=== PATIENT | male | born 1950 | race Caucasian/White ===

== ENCOUNTER 2016-03-30 20:03 | Inpatient (IN) | payer MEDICARE ==
[~2016-03-30] VITALS: Ht 175.3 cm; Wt 77.6 kg
[~2016-03-30 20:03] MED LIST: ASPI-110 PO; CARD300C5 PO; GLUC15009 PO; MULT1TAB84 PO; NEXI40CA PO; ONDA4TAB6 PO; OXYC1CAP8 PO; PROS5TAB PO; SUPECAP14 PO; VASO10TA8 PO; ZOCO40TA PO
[2016-03-30 20:16] VITALS: BP 91/53; PULSE 94; RESP 18; TEMP 99; O2SAT 98
--- NOTE | 2016-03-30 21:20 | PD ---
HPI Chief Complaint: Abnormal Results Time Seen by Provider: 20:49 Travel History International Travel<30 days: No Contact w/Intl Traveler<30days: No Traveled to known affect area: No History of Present Illness HPI 66-year-old male complains of poor appetite, increased sodium level, and bilateral ankle swelling. Patient has history of metastatic pancreatic cancer to the liver, on palliative chemotherapy. Patient has poor appetite recently. Patient denies any nausea vomiting diarrhea. Patient states that he has history of chronic abdominal pain from the cancer and is not new. Patient had blood tests done by Dr. Gonzalez, his oncologist 3 days ago . Patient was informed by Dr. Gonzalez today that his sodium is high and advised to go to ED for evaluation. Patient States that he noticed bilateral ankle swelling today. Patient denies any leg pain. Patient denies ankle and feet pain. Patient denies any history of DVT or PE. Patient also has history of hypertension, GERD , BPH, hyperlipidemia. PFSH Past Medical History Cancer: Yes (pancreatic/liver) Cardiovascular Problems: Yes (htn on meds) High Cholesterol: Yes Chemotherapy: Yes (this past wednesday) Diabetes: No Diminished Hearing: No Endocrine: No Gastrointestinal Disorders: Yes (GERD) Genitourinary: No Hepatitis: No Hiatal Hernia: No Hypertension: Yes Immune Disorder: No Musculoskeletal: No Neurologic: No Psychiatric: No Reproductive: No Respiratory: No Immunizations Current: Yes Thyroid Disease: No Past Surgical History Abdominal Surgery: Yes (APPENDECTOMY, INGUINAL HERNIA REPAIR) AICD: No Appendectomy: Yes Joint Replacement: No Pacemaker: No Thoracic Surgery: Yes (RIGHT LUNG TUMOR REMOVAL- OUTSIDE) Other Surgery: Yes (HERNIA) Social History Alcohol Use: No (quit 10+ years ago) Tobacco Use: No (quit 25+ years ago) Substance Use: No Allergies-Medications (Allergen,Severity, Reaction): Coded Allergies: Codeine (Verified Allergy, Severe, HEADACHE AND FLUSHNESS, 03/30/16) Reported Meds & Prescriptions Reported Meds & Active Scripts Active Reported Cardizem LA (Diltiazem ER 24 HR) 300 Mg Jose 300 Mg PO DAILY Vasotec (Enalapril Maleate) 10 Mg Tab 10-25 Mg PO BID Super B with C (B Complex W/ C) 1 Cap Cap 1 Cap PO DAILY Glucosamine 1,500 Mg Tab 1,500 Mg PO DAILY Multivitamin Adults (Multiple Vitamins W/ Minerals) 1 Tab 1 Tab PO DAILY Oxycodone Hydrochloride (Oxycodone HCl) 5 Mg Cap 5 Mg PO Q4HR PRN Ondansetron HCl 4 Mg Tab 8 Mg PO TID Aspirin 81 (Aspirin) 81 Mg Tabdr 81 Mg PO DAILY Nexium (Esomeprazole DR) 40 Mg Capdr 40 Mg PO DAILY Proscar (Finasteride) 5 Mg Tab 5 Mg PO DAILY Do not crush. Zocor (Simvastatin) 40 Mg Tab 40 Mg PO DAILY Review of Systems General / Constitutional: No: Fever Eyes: No: Visual changes HENT: No: Headaches Cardiovascular: No: Chest Pain or Discomfort Respiratory: No: Shortness of Breath Gastrointestinal: No: Abdominal Pain Genitourinary: No: Dysuria Musculoskeletal: No: Pain Skin: No Rash Neurologic: No: Weakness Psychiatric: No: Depression Endocrine: No: Polydipsia Hematologic/Lymphatic: No: Easy Bruising Physical Exam Narrative GENERAL: Well-nourished, well-developed patient. SKIN: Warm and dry. Patient is jaundiced HEAD: Normocephalic. EYES: No scleral icterus. No injection or drainage. NECK: Supple, trachea midline. No JVD or lymphadenopathy. CARDIOVASCULAR: Regular rate and rhythm without murmurs, gallops, or rubs. RESPIRATORY: Breath sounds equal bilaterally. No accessory muscle use. GASTROINTESTINAL: Abdomen soft, non-tender, nondistended. MUSCULOSKELETAL: No cyanosis, or edema. BACK: Nontender without obvious deformity. No CVA tenderness. Neurologic exam normal. Data Data Last Documented VS Vital Signs Date Time Temp Pulse Resp B/P Pulse Ox O2 Delivery O2 Flow Rate FiO2 03/30/16 20:50 Room Air 03/30/16 20:16 99.0 94 18 91/53 98 Orders Complete Blood Count With Diff (03/30/16 21:08) Comprehensive Metabolic Panel (03/30/16 21:08) Prothrombin Time / Inr (Pt) (03/30/16 21:08) Act Partial Throm Time (Ptt) (03/30/16 21:08) Magnesium (Mg) (03/30/16 21:08) Ammonia (03/30/16 21:08) Phosphorus (Po4) (03/30/16 21:08) Iv Access Insert/Monitor (03/30/16 21:08) Ecg Monitoring (03/30/16 21:08) Oximetry (03/30/16 21:08) Us Leg Venous Doppler Bilat (03/30/16 21:08) Sodium Chlor 0.9% 1000 Ml Inj (Ns 1000 M (03/30/16 23:15) Sodium Chlor 0.9% 1000 Ml Inj (Ns 1000 M (03/30/16 23:15) Admit To Inpatient (03/31/16 ) Vital Signs (Adult) Q4H (03/31/16 00:21) Activity Oob With Assistance (03/31/16 00:21) ^ Radiology Practitioner Assistant / Telemetry .CONTINUOUS (03/31/16 00:21) Diet Heart Healthy (03/31/16 Breakfast) Sodium Chlor 0.9% 1000 Ml Inj (Ns 1000 M (03/31/16 00:21) Sodium Chloride 0.9% Flush (Ns Flush) (03/31/16 00:30) Sodium Chloride 0.9% Flush (Ns Flush) (03/31/16 09:00) Ondansetron Inj (Zofran Inj) (03/31/16 00:30) Basic Metabolic Panel (Bmp) (04/01/16 06:00) Complete Blood Count With Diff (04/01/16 06:00) Enoxaparin Inj (Lovenox Inj) (03/31/16 09:00) Naloxone Inj (Narcan Inj) (03/31/16 00:30) Inpatient Certification (03/31/16 ) Cefepime Inj (Maxipime Inj) (03/31/16 00:30) Chest, Single Ap (03/31/16 00:23) Admit Order (Ed Use Only) (03/31/16 00:23) Labs Laboratory Tests Test 03/30/16 21:30 White Blood Count 24.3 TH/MM3 Red Blood Count 3.30 MIL/MM3 Hemoglobin 9.8 GM/DL Hematocrit 28.4 % Mean Corpuscular Volume 86.2 FL Mean Corpuscular Hemoglobin 29.6 PG Mean Corpuscular Hemoglobin 34.4 % Concent Red Cell Distribution Width 19.8 % Platelet Count 152 TH/MM3 Mean Platelet Volume 8.9 FL Neutrophils (%) (Auto) 86.2 % Lymphocytes (%) (Auto) 6.5 % Monocytes (%) (Auto) 6.8 % Eosinophils (%) (Auto) 0.1 % Basophils (%) (Auto) 0.4 % Neutrophils # (Auto) 20.9 TH/MM3 Lymphocytes # (Auto) 1.6 TH/MM3 Monocytes # (Auto) 1.7 TH/MM3 Eosinophils # (Auto) 0.0 TH/MM3 Basophils # (Auto) 0.1 TH/MM3 CBC Comment AUTO DIFF Differential Comment AUTO DIFF CONFIRMED Platelet Estimate NORMAL Platelet Morphology Comment CLUMPED Prothrombin Time 13.6 SEC Prothromb Time International 1.2 RATIO Ratio Activated Partial 34.6 SEC Thromboplast Time Sodium Level 123 MEQ/L Potassium Level 3.5 MEQ/L Chloride Level 83 MEQ/L Carbon Dioxide Level 32.8 MEQ/L Anion Gap 7 MEQ/L Blood Urea Nitrogen 36 MG/DL Creatinine 1.40 MG/DL Estimat Glomerular Filtration 50 ML/MIN Rate Random Glucose 118 MG/DL Calcium Level 8.1 MG/DL Phosphorus Level 2.9 MG/DL Magnesium Level 1.8 MG/DL Total Bilirubin 6.4 MG/DL Aspartate Amino Transf 228 U/L (AST/SGOT) Alanine Aminotransferase 309 U/L (ALT/SGPT) Alkaline Phosphatase 1325 U/L Ammonia LESS THAN 10 MCMOL/L Total Protein 5.6 GM/DL Albumin 1.7 GM/DL MDM Medical Decision Making Medical Screen Exam Complete: Yes Emergency Medical Condition: Yes Interpretation(s) 22 45 PM. Doppler study low extremity negative for DVT. CBC WBC 24.3. Hemoglobin 9.8 hematocrit 20.4. 86 neutrophil. INR 1.2. 23:11 PM. Sodium 123. Chloride 83. BUN 30. Creatinine 1.40. GFR 50. Total bili 6.4. AST 228. ALT 309. Alkaline phosphatase 13-5. Ammonia less than 10. Differential Diagnosis Differential diagnosis including hyponatremia, dehydration, dependent edema, DVT Narrative Course 66-year-old male with history of metastatic pancreatic cancer to the liver was sent to the ED for evaluation of hypernatremia. Patient also has bilateral ankle swelling today. Normal saline solution 1 L IV bolus. Normal saline solution 1 25 cc an hour. Diagnosis Primary Impression: Dehydration with hyponatremia Additional Impressions: Acute kidney injury Leukocytosis Qualified Code: D72.829 - Leukocytosis, unspecified type Admitting Information Admitting Physician Requests: Admit Kimo Pham MD Mar 30, 2016 21:20
[2016-03-30 21:45] VITALS: BP 118/62; PULSE 80; RESP 18; O2SAT 99
[2016-03-30 21:47] LABS: AUTOMATED NEUTROPHIL # 20.9 TH/MM3 (1.8-7.7); BASOPHIL # 0.1 TH/MM3 (0-0.2); BASOPHIL % 0.4 % (0.0-2.0); EOSINOPHIL % 0.1 % (0.0-4.0); HEMATOCRIT 28.4 % (39.0-51.0); LYMPH % 6.5 % (9.0-44.0); LYMPHOCYTE # 1.6 TH/MM3 (1.0-4.8); MEAN CELL VOLUME 86.2 FL (80.0-100.0); MEAN CORPUSCULAR HEMOGLOBIN 29.6 PG (27.0-34.0); MEAN CORPUSCULAR HGB CONC 34.4 % (32.0-36.0); MONO % 6.8 % (0.0-8.0); NEUT % 86.2 % (16.0-70.0); PLATELET COUNT 152 TH/MM3 (150-450); RED CELL DISTRIBUTION WIDTH 19.8 % (11.6-17.2); WHITE BLOOD COUNT 24.3 TH/MM3 (4.0-11.0)
[2016-03-30 21:50] LABS: HEMO FLAGS AUTO DIFF
[2016-03-30 21:55] LABS: APTT (PATIENT) 34.6 SEC (24.3-30.1); INTERNATIONAL NORMALIZED RATIO 1.2 RATIO; PROTHROMBIN TIME - PATIENT 13.6 SEC (9.8-11.6)
--- NOTE | 2016-03-30 22:27 | RADHPO ---
EXAM DATE/TIME: 03/30/2016 21:38 [facility] COMPARISON: No previous studies available for comparison. INDICATIONS : Bilateral leg swelling. MEDICAL HISTORY : Hypercholesterolemia. Hypertension. Gastroesophageal reflux disease. Pancreatic cancer. SURGICAL HISTORY : Appendectomy.Inguinal hernia repair. Rotator cuff, left.Rotator cuff, right. Chemotherapy. ENCOUNTER: Initial ACUITY: 1 day PAIN SCORE: 1/10 LOCATION: Bilateral legs. TECHNIQUE: Venous ultrasound of the left and right leg was performed from the inguinal ligament to the proximal calf. Real-time, color Doppler and spectral tracing, compression and augmentation techniques were us ed. FINDINGS: RIGHT LEG: There is normal compressibility of the deep venous system from the inguinal region to the proximal ca lf. No echogenic clot is seen in the lumen of the common femoral, femoral, popliteal, and posterior tibial veins. There is a normal response of the venous system to proximal and distal augmentation an d respiration. LEFT LEG: There is normal compressibility of the deep venous system from the inguinal region to the proximal ca lf. No echogenic clot is seen in the lumen of the common femoral, femoral, popliteal, and posterior tibial veins. There is a normal response of the venous system to proximal and distal augmentation an d respiration. CONCLUSION: No DVT of either lower extremity. Dusty Stuart MD on March 30, 2016 at 22:25 Board Certified Radiologist. This report was verified electronically.
[2016-03-30] MEDS ORDERED: DILT1TAB22 PO (22:38)
[2016-03-30 22:40] VITALS: BP 131/60; PULSE 72; RESP 16; O2SAT 96
[2016-03-30 22:41] LABS: ALKALINE PHOSPHATASE 1325 U/L (45-117); ALT (GPT) 309 U/L (12-78); ANION GAP 7 MEQ/L (5-15); AST (GOT) 228 U/L (15-37); BICARBONATE 32.8 MEQ/L (21.0-32.0); BLOOD UREA NITROGEN 36 MG/DL (7-18); CHLORIDE 83 MEQ/L (98-107); GLOMERULAR FILTRATION RATE 50 ML/MIN (>89); MAGNESIUM 1.8 MG/DL (1.5-2.5); POTASSIUM 3.5 MEQ/L (3.5-5.1); TOTAL BILIRUBIN ADULT 6.4 MG/DL (0.2-1.0)
[2016-03-30 22:46] LABS: PLATELET ESTIMATE SMEAR NORMAL (NORMAL); PLATELET MORPHOLOGY CLUMPED (NORMAL); SCAN/DIFF AUTO DIFF CONFIRMED
[2016-03-30 22:54] LABS: SODIUM (NA) 123 MEQ/L (136-145)
[2016-03-30] MEDS ORDERED: SODIUM CHLOR 0.9% 1000 ML INJ 1,000 ML IV ONE (23:15)
[2016-03-30] MEDS: SODIUM CHLOR 0.9% 1000 ML INJ 1,000 ML IV SCH (23:26)
[2016-03-30 23:50] VITALS: BP 134/58; PULSE 70; RESP 17; O2SAT 97
[2016-03-31] VITALS (9 sets, daily range): BP systolic 118–143; BP diastolic 60–75; PULSE 66–89; RESP 16–18; TEMP 97.4–98.9; O2SAT 96–99
[2016-03-31] MEDS ORDERED: SODIUM CHLOR 0.9% 1000 ML INJ 1,000 ML IV SCH (00:21)
[2016-03-31] MEDS ORDERED: NALOXONE HCL 0.4 MG/ML AMP IV PRN (00:30)
[2016-03-31] MEDS ORDERED: CEFEPIME INJ 1,000 MG in SODIUM CHLORIDE 0.9% INJ 100 ML IV ONE (00:30)
[2016-03-31] MEDS ORDERED: ONDANSETRON HCL 4 MG/2 ML VIAL IVP PRN (00:30)
[2016-03-31] MEDS ORDERED: SODIUM CHLORIDE 0.9% FLUSH 5 ML FLUSH FLUSH PRN (00:30)
--- NOTE | 2016-03-31 01:20 | RADHPO ---
EXAM DATE/TIME: 03/31/2016 00:55 [facility] COMPARISON: [id number] PLCMT, POWERPORT, W US, RIGHT, January 29, 2016, 9:43. INDICATIONS : Short of breath MEDICAL HISTORY : Carcinoma, pancreas. SURGICAL HISTORY : Infus a port ENCOUNTER: Initial ACUITY: 1 day PAIN SCORE: 2/10 LOCATION: Bilateral chest FINDINGS: Right chest port is present in good position. The there is slight asymmetric elevation the right diap hragm and minimal parenchymal opacity right lung base. No significant effusion. Cardiomediastinal con tours are satisfactory. CONCLUSION: Mild diaphragmatic asymmetry of undetermined chronicity. Dusty Vanessa MD on March 31, 2016 at 1:17 Board Certified Radiologist. This report was verified electronically.
[2016-03-31] MEDS: ENOXAPARIN SODIUM 40 MG/0.4 ML SYRINGE SQ SCH (09:50)
[2016-03-31] MEDS: SODIUM CHLOR 0.9% 1000 ML INJ 1,000 ML IV SCH ×3 (09:52→23:15)
[2016-03-31] MEDS: SODIUM CHLORIDE 0.9% FLUSH 5 ML FLUSH FLUSH SCH ×2 (09:53→19:36)
[2016-03-31] MEDS ORDERED: CEFEPIME INJ 1,000 MG in SODIUM CHLORIDE 0.9% INJ 100 ML IV SCH (12:00)
[2016-03-31 13:10] LABS: BICARBONATE 29.3 MEQ/L (21.0-32.0)
[2016-03-31 13:11] LABS: POTASSIUM 2.9 MEQ/L (3.5-5.1)
[2016-03-31] MEDS ORDERED: POTASSIUM CHLORIDE 10 MEQ CONTROLLED RELEASE TAB PO ONE (13:30)
--- NOTE | 2016-03-31 13:32 | HHI.HP ---
[facility] Shubham Ruiz Admission Diagnosis severe hyponatremia. Leukocytosis. Diagnoses: Chief Complaint: Abnormal labs Travel History International Travel<30 Days: No Contact w/Intl Traveler <30 Da: No Traveled to Known Affected Are: No History of Present Illness Patient is a 66-year-old gentleman with a history of pancreatic cancer in follow -up with Dr. Gonzalez who did come to the emergency room after his oncologist office called him with abnormal labs. He did arrive and had a BMP which showed some hyponatremia, acute kidney injury and leukocytosis. Patient says he has not been ill, no fevers or chills. He does take palliative chemotherapy for 3 weeks and is off a week. Last treatment was last Wednesday and labs were obtained at that time. Patient did have a sodium of 123 and after so normal saline and sodium is now 126. His acute kidney injury appears to be resolved also. Patient does have persistent leukocytosis. He denies any seizures or headache or shortness of breath. These reasons the patient was admitted to the hospital for further treatment of dehydration with hyponatremia Review of Systems Constitutional: DENIES: Diaphoretic episodes, Fatigue, Fever, Weight gain, Weight loss, Chills, Dizziness, Change in appetite, Night Sweats Endocrine: DENIES: Heat/cold intolerance, Polydipsia, Polyuria, Polyphagia Eyes: DENIES: Blurred vision, Diplopia, Eye inflammation, Eye pain, Vision loss , Photosensitivity, Double Vision Ears, nose, mouth, throat: DENIES: Tinnitus, Hearing loss, Vertigo, Nasal discharge, Oral lesions, Throat pain, Hoarseness, Ear Pain, Running Nose, Epistaxis, Sinus Pain, Toothache, Odynophagia Respiratory: DENIES: Apneas, Cough, Snoring, Wheezing, Hemoptysis, Sputum production, Shortness of breath Cardiovascular: DENIES: Chest pain, Palpitations, Syncope, Dyspnea on Exertion , PND, Lower Extremity Edema, Orthopnea, Claudication Gastrointestinal: DENIES: Abdominal pain, Black stools, Bloody stools, Constipation, Diarrhea, Nausea, Vomiting, Difficulty Swallowing, Anorexia Genitourinary: DENIES: Sexual dysfunction, Urinary frequency, Urinary incontinence, Urgency, Hematuria, Dysuria, Nocturia, Penile Discharge, Testicular Pain, Testicular Swelling Musculoskeletal: DENIES: Joint pain, Muscle aches, Stiffness, Joint Swelling, Back pain, Neck pain Integumentary: DENIES: Abnormal pigmentation, Nail changes, Pruritus, Rash Hematologic/lymphatic: DENIES: Bruising, Lymphadenopathy Immunologic/allergic: DENIES: Eczema, Urticaria Neurologic: DENIES: Abnormal gait, Headache, Localized weakness, Paresthesias, Seizures, Speech Problems, Tremor, Poor Balance Psychiatric: DENIES: Anxiety, Confusion, Mood changes, Depression, Hallucinations, Agitation, Suicidal Ideation, Homicidal Ideation, Delusions Past Family Social History Past Medical History Pancreatic cancer with metastases to the liver and currently on palliative chemotherapy Hypertension Past Surgical History Appendectomy Right lung resection Plan of hernia repair Reported Medications Reviewed in the medical record Allergies: Coded Allergies: Codeine (Verified Allergy, Severe, HEADACHE AND FLUSHNESS, 03/30/16) Active Ordered Medications Reviewed in the medical record Family History Son has melanoma Social History No current tobacco or alcohol dependency, retired [employer], lives with his Physical Exam Vital Signs Vital Signs Date Time Temp Pulse Resp B/P Pulse Ox O2 Delivery O2 Flow Rate FiO2 03/31/16 08:07 97.4 66 18 118/75 98 03/31/16 07:20 98.4 77 16 124/62 98 Room Air 03/31/16 07:20 77 16 98 Room Air 03/31/16 07:20 16 98 Room Air 03/31/16 06:30 79 18 134/67 98 Room Air 03/31/16 05:00 72 18 134/62 96 Room Air 03/31/16 03:00 Room Air 03/31/16 03:00 73 16 143/65 96 Room Air 03/31/16 01:26 98.6 72 17 136/60 97 Room Air 03/30/16 23:50 70 17 134/58 97 Room Air 03/30/16 22:40 Room Air 03/30/16 22:40 72 16 131/60 96 Room Air 03/30/16 21:45 80 18 118/62 99 Room Air 03/30/16 20:50 Room Air 03/30/16 20:50 Room Air 03/30/16 20:16 99.0 94 18 91/53 98 Room Air Physical Exam GENERAL: This is a well-nourished, well-developed patient, in no apparent distress. SKIN: No rashes, ecchymoses or lesions. Cool and dry. HEAD: Atraumatic. Normocephalic. No temporal or scalp tenderness. EYES: Pupils equal round and reactive. Extraocular motions intact. No scleral icterus. No injection or drainage. ENT: Nose without bleeding, purulent drainage or septal hematoma. Throat without erythema, tonsillar hypertrophy or exudate. Uvula midline. Airway patent. NECK: Trachea midline. No JVD or lymphadenopathy. Supple, nontender, no meningeal signs. CARDIOVASCULAR: left port, Regular rate and rhythm without murmurs, gallops, or rubs. RESPIRATORY: Clear to auscultation. Breath sounds equal bilaterally. No wheezes , rales, or rhonchi. GASTROINTESTINAL: Abdomen soft, non-tender, nondistended. No hepato-splenomegaly , or palpable masses. No guarding. MUSCULOSKELETAL: Extremities without clubbing, cyanosis, or edema. No joint tenderness, effusion, or edema noted. No calf tenderness. Negative Homans sign bilaterally. NEUROLOGICAL: Awake and alert. Cranial nerves II through XII intact. Motor and sensory grossly within normal limits. Five out of 5 muscle strength in all muscle groups. Normal speech. Laboratory Laboratory Tests Test 03/30/16 03/31/16 21:30 12:20 White Blood Count 24.3 Red Blood Count 3.30 Hemoglobin 9.8 Hematocrit 28.4 Mean Corpuscular Volume 86.2 Mean Corpuscular Hemoglobin 29.6 Mean Corpuscular Hemoglobin 34.4 Concent Red Cell Distribution Width 19.8 Platelet Count 152 Mean Platelet Volume 8.9 Neutrophils (%) (Auto) 86.2 Lymphocytes (%) (Auto) 6.5 Monocytes (%) (Auto) 6.8 Eosinophils (%) (Auto) 0.1 Basophils (%) (Auto) 0.4 Neutrophils # (Auto) 20.9 Lymphocytes # (Auto) 1.6 Monocytes # (Auto) 1.7 Eosinophils # (Auto) 0.0 Basophils # (Auto) 0.1 CBC Comment AUTO DIFF Differential Comment AUTO DIFF CONFIRMED Platelet Estimate NORMAL Platelet Morphology Comment CLUMPED Prothrombin Time 13.6 Prothromb Time International 1.2 Ratio Activated Partial 34.6 Thromboplast Time Sodium Level 123 127 Potassium Level 3.5 2.9 Chloride Level 83 88 Carbon Dioxide Level 32.8 29.3 Anion Gap 7 10 Blood Urea Nitrogen 36 26 Creatinine 1.40 0.85 Estimat Glomerular Filtration 50 90 Rate Random Glucose 118 126 Calcium Level 8.1 7.7 Phosphorus Level 2.9 Magnesium Level 1.8 Total Bilirubin 6.4 Aspartate Amino Transf 228 (AST/SGOT) Alanine Aminotransferase 309 (ALT/SGPT) Alkaline Phosphatase 1325 Ammonia LESS THAN 10 Total Protein 5.6 Albumin 1.7 Result Diagram: 03/30/16212903/31/16 1220 Imaging Last Impressions Chest X-Ray 03/31/16 0023 Signed Impressions: Service Date/Time: Thursday, March 31, 2016 00:55 - CONCLUSION: Mild diaphragmatic asymmetry of undetermined chronicity. Dusty Vanessa MD Lower Extremity Ultrasound 03/30/162107 Signed Impressions: Service Date/Time: Wednesday, March 30, 2016 21:38 - CONCLUSION: No DVT of either lower extremity. Dusty Staurt MD Assessment and Plan Problem List: (1) Hypotension ICD Code: I95.9 Status: Acute Plan: Improved with IV hydration, continue to monitor patient (2) Acute kidney injury ICD Code: N17.9 Status: Acute Plan: Improved with IV hydration, avoid further nephrotoxic injury (3) Dehydration with hyponatremia ICD Code: E87.1 Status: Acute Plan: Sodium has gone from 123-127, will continue with slow normal saline and follow electrolytes Replace hypokalemia (4) Leukocytosis ICD Code: D72.829 Status: Acute Plan: Etiology unclear, UA and blood cultures pending May be acute phase reaction after chemotherapy Previous leukocytes have been normal Empiric cefepime Patient denies any fever, chills, SOB, Dysuria and is not on neupogen (5) LFT elevation ICD Code: R94.5 Status: Acute Plan: Patient with chronically elevated LFTs secondary to metastatic pancreatic cancer (metastases to the liver and currently on palliative chemotherapy with Dr. Gonzalez) continue surveillance noemi gupta Physician Certification 2 Midnight Certification Type: Admission for Inpatient Services Order for Inpatient Services The services are ordered in accordance with Medicare regulations or non- Medicare payer requirements, as applicable. In the case of services not specified as inpatient-only, they are appropriately provided as inpatient services in accordance with the 2-midnight benchmark. Estimated LOS (days): 3 3 days is the estimated time the patient will need to remain in the hospital, assuming treatment plan goals are met and no additional complications. Post-Hospital Plan: Home Problem Qualifiers (1) Leukocytosis: Qualified Code: D72.829 - Leukocytosis, unspecified type Jeanne Keller MD Mar 31, 2016 13:32
[2016-03-31] MEDS: FINASTERIDE 5 MG TAB PO SCH (14:34)
[2016-03-31] MEDS: DILTIAZEM-CD 300 MG CAP ER PO SCH (17:35)
[2016-03-31] MEDS: ONDANSETRON ODT 4 MG TAB PO SCH (17:35)
[2016-03-31 19:37] LABS: INDIRECT BILIRUBIN 1.8 MG/DL (0.0-0.8); TOTAL BILIRUBIN ADULT 8.7 MG/DL (0.2-1.0)
[2016-03-31 19:37] LABS: BLOOD, URINE NEG (NEG); GLUCOSE,URINE 100 mg/dL (NEG); KETONE, URINE NEG (NEG); NITRITE,URINE NEG (NEG)
[2016-03-31 20:10] LABS: METHOD OF COLLECTION CLEAN CATCH; URINE COLOR AMBER (YELLW/STRAW)
--- NOTE | 2016-03-31 20:11 | MB ---
cc: JULIUS KELLER MD,MAXIMO GONZALEZ,AYLA Ferrer M.D. DATE OF CONSULTATION: 03/31/2016 DATE OF : [address] Julius Keller CHIEF COMPLAINT Chemo related toxicity. HISTORY OF PRESENT ILLNESS Mr. Tineo is a 66-year-old man with a history of upper abdominal pain and was found to have a pancreatic head mass and metastatic lesion to the right lobe of the liver. He was started on palliative chemotherapy with Abraxane and gemcitabine. He is well-known for an admission back in December 2015 for nausea, vomiting, diarrhea associated with his chemotherapy regimen. He has been tolerating his gemcitabine and Abraxane well. He describes having ankle swelling, problems with his sodium and thus was sent to the hospital by Dr. Gonzalez. During his evaluation he was found to have a white blood cell count of 24,000, hemoglobin 9.7, platelet count 152,000. Sodium was 123. It improved to 127 at the time of the consultation. His BUN was 36, creatinine 1.4. His BUN and creatinine improved. At the time of consultation liver function are all elevated. Mr. Tineo describes that he was trying to drink water as advised. He had some leg swelling. He has poor appetite and tries to eat. Denies any difficulty swallowing. No headaches, no vision changes. He has chronic abdominal pain in the upper abdomen related to his pancreas cancer. He has never been seen by pain management. He takes p.r.n. pain medication. He denies any constipation. Denies any peripheral neuropathy. He complained of leg swelling prior to coming into the hospital. Denies any fevers, chills, night sweats. The rest of his review of systems is negative. PAST MEDICAL HISTORY: 1. Metastatic pancreatic cancer. 2. Chemotherapy induced anemia. 3. Hypertension. 4. Hyponatremia. 5. Liver function elevation. PAST SURGICAL HISTORY: 1. Right inguinal hernia repair. 2. Appendectomy. 3. Removal of tumor in the right lung. 4. Hammertoe surgery. FAMILY HISTORY: Father age 38 of cerebral aneurysm. Mother age 87 with no cancer. ALLERGIES CODEINE. CURRENT MEDICATIONS: 1. Aspirin. 2. Protonix. 3. Cefepime. 4. Ondansetron. 5. Diltiazem. 6. Oxycodone 7. Proscar. 8. Enoxaparin. PHYSICAL EXAMINATION: VITAL SIGNS: Temperature 97.8, heart rate 84, respiratory rate 18, blood pressure 142/69, saturation 99%. GENERAL: Ms. Tineo is a well-developed, well-nourished man who looks his stated age. He has alopecia. He is in good spirits with his family at bedside. HEENT: Pupils equal, round, reactive to light and accommodation. Sclera mildly icteric. Oropharynx is clear. Neck is supple. Lungs cuenca clear to auscultation. Cardiovascular: Exam reveals normal rate, rhythm. Abdomen is mildly distended. There is tenderness in the upper abdomen, otherwise bowel sounds are good and benign. Extremities: Lower extremities with trace ankle edema. LABORATORY DATA Significant for hyponatremia on admission, BUN of 36, creatinine 1.4, white blood cell count is elevated. ASSESSMENT/PLAN Mr. Tineo is a 66-year-old man with multiple medical problems described above. He is diagnosed with metastatic unresectable pancreatic cancer receiving first-line chemotherapy with Abraxane and gemcitabine. His course was complicated by hyponatremia, renal insufficiency. I suspect renal insufficiency is related to prerenal azotemia. It improved with hydration and support. There is concern for progression of disease. The patient talks of change in chemo regimen that was scheduled for tomorrow. He describes Folfirinox. He has new bilirubin elevation. He is mildly icteric. Will check bilirubin again and consult gastroenterology if it looks like it is primarily an obstructive picture. His liver functions are elevated. His labs from January shows a normal bilirubin. The goal will be to determine if he has obstruction causing the increase in bilirubin. LDH will be checked. His potassium is being replaced by his primary team. He is trying to eat. His questions were answered to his satisfaction. MD RACIEL Barrientos/EDILSON /6:30 PM /7:33 PM JENELLE
[2016-03-31 20:12] LABS: SQUAMOUS EPITHELIAL CELL URINE 0-2 /hpf (0-5); WHITE BLOOD CELL CAST, URINE 0-2 /lpf
[2016-03-31 20:13] LABS: BACTERIA, URINE RARE /hpf; COMMENT (UR) CULT NOT INDICATED; CULTURE IF INDICATED CULT NOT INDICATED
[2016-04-01] VITALS: BP 124/74; PULSE 83; RESP 18; TEMP 98.6; O2SAT 98
[2016-04-01] MEDS: CEFEPIME INJ 1,000 MG in SODIUM CHLORIDE 0.9% INJ 100 ML IV SCH ×2 (00:14→23:55)
[2016-04-01] MEDS: SODIUM CHLOR 0.9% 1000 ML INJ 1,000 ML IV SCH ×3 (05:33→22:37)
[2016-04-01 06:59] LABS: CHLORIDE 91 MEQ/L (98-107); POTASSIUM 3.2 MEQ/L (3.5-5.1); SODIUM (NA) 129 MEQ/L (136-145)
[2016-04-01 07:06] LABS: ANION GAP 9 MEQ/L (5-15); BICARBONATE 29.3 MEQ/L (21.0-32.0); BLOOD UREA NITROGEN 18 MG/DL (7-18)
[2016-04-01 07:08] LABS: ALT (GPT) 328 U/L (12-78); AST (GOT) 332 U/L (15-37)
[2016-04-01 07:09] LABS: GLOMERULAR FILTRATION RATE 112 ML/MIN (>89)
[2016-04-01 07:10] LABS: TOTAL BILIRUBIN ADULT 10.1 MG/DL (0.2-1.0)
[2016-04-01 07:23] LABS: ALKALINE PHOSPHATASE 1483 U/L (45-117)
[2016-04-01 08:00] VITALS: BP 141/71; PULSE 78; RESP 18; TEMP 98.1; O2SAT 96
[2016-04-01 10:00] LABS: HEMATOCRIT 26.2 % (39.0-51.0); MEAN CELL VOLUME 87.6 FL (80.0-100.0); MEAN CORPUSCULAR HGB CONC 34.2 % (32.0-36.0); PLATELET COUNT 134 TH/MM3 (150-450); RED BLOOD COUNT 2.99 MIL/MM3 (4.50-5.90); RED CELL DISTRIBUTION WIDTH 20.8 % (11.6-17.2); WHITE BLOOD COUNT 24.2 TH/MM3 (4.0-11.0)
[2016-04-01 10:07] LABS: HEMO FLAGS AUTO DIFF
[2016-04-01] MEDS: DILTIAZEM-CD 300 MG CAP ER PO SCH (10:11)
[2016-04-01] MEDS: ENOXAPARIN SODIUM 40 MG/0.4 ML SYRINGE SQ SCH (10:11)
[2016-04-01] MEDS: PANTOPRAZOLE SOD 40 MG DELAYED RELEASE TAB PO SCH (10:11)
[2016-04-01] MEDS: SODIUM CHLORIDE 0.9% FLUSH 5 ML FLUSH FLUSH SCH ×2 (10:11→21:00)
[2016-04-01] MEDS: FINASTERIDE 5 MG TAB PO SCH (10:12)
[2016-04-01] MEDS: ONDANSETRON ODT 4 MG TAB PO SCH ×3 (10:12→17:56)
[2016-04-01] MEDS: ASPIRIN EC 81 MG TABEC PO SCH (10:12)
[2016-04-01 10:26] LABS: BANDS 1 % (0-6); NEUTROPHIL # MANUAL DIFF 21.3 TH/MM3 (1.8-7.7); PLATELET ESTIMATE SMEAR LOW (NORMAL); PLATELET MORPHOLOGY NORMAL (NORMAL); POLYS (SEG NEUTROPHILS) 87 % (16-70); SCAN/DIFF FINAL DIFF MANUAL; TARGET CELLS 1+ (NORMAL); WBC DIFF SAMPLE 100
[2016-04-01 12:00] VITALS: BP 124/62; PULSE 71; RESP 18; TEMP 98.7; O2SAT 97
--- NOTE | 2016-04-01 14:27 | MB ---
cc: PADMINI HELTON DATE OF CONSULTATION: 04/01/2016 DATE OF : 1950 REASON FOR CONSULTATION Jaundice and elevated liver enzymes. BRIEF MEDICAL HISTORY Mr. Tineo is a very pleasant 66-year-old gentleman with past medical history significant for metastatic pancreatic cancer and hypertension who is currently undergoing chemotherapy and being followed by Dr. Gonzalez. The patient was advised to present to the hospital due to abnormal lab work showing significant electrolyte abnormalities that required medical attention. Overall he was doing well. He reports having some mild abdominal discomfort usually in the lower abdomen. He denies any significant nausea or vomiting, no diarrhea or constipation. He did have a low sodium of 123 as well as acute kidney injury and leukocytosis. Also on initial evaluation he was noted to have elevation of liver enzymes with a bilirubin of 6.4, AST 228, ALT 309, and alkaline phosphatase of 1325. The patient does report some mild jaundice in the last few weeks. Denies any itching. He endorses some choluria and acholuria. GI has been consulted for abnormal liver enzymes. PAST MEDICAL HISTORY 1. Pancreatic cancer with metastasis to the liver. 2. Hypertension. PAST SURGICAL HISTORY 1. Appendectomy. 2. Right lung resection. 3. Hernia repair. ALLERGIES He is allergic to CODEINE. FAMILY HISTORY Has a son with melanoma. SOCIAL HISTORY Denies any tobacco, alcohol or drug use. MEDICATIONS Active medications: 1. Aspirin 81 mg p.o. daily. 2. Pantoprazole 40 mg p.o. daily. 3. Cefepime. 4. Diltiazem 300 mg p.o. daily. 5. Oxycodone 5 mg q.4h. p.r.n. 6. Proscar 5 mg p.o. daily. 7. Lovenox 40 mg q.24h. subcu. REVIEW OF SYSTEMS Positive for abdominal pain, jaundice, acholuria and chloruria. Otherwise a 14-point review of systems is negative. PHYSICAL EXAMINATION VITAL SIGNS: Temperature 98.7, heart rate 71, respiratory rate 14, blood pressure 124/62. GENERAL: He is in no acute distress lying in bed comfortably. HEENT: Normocephalic, atraumatic. Extraocular movements intact. Pupils equal, round, reactive to light and accommodation. Mild icteric sclera. Moist oral mucosa. NECK: Supple. No JVD. No lymphadenopathy. CARDIOVASCULAR: Regular rate and rate, S1, S2, no murmurs or gallops. PULMONARY: Clear to auscultation bilaterally. No wheeze or rhonchi noted. ABDOMEN: Soft, nondistended, nontender to palpation. No significant hepatosplenomegaly appreciated. Bowel sounds are present in all four quadrants. EXTREMITIES: No cyanosis or edema. Pulses 2+ bilaterally. NEUROLOGIC: He is alert and oriented x3. Cranial nerves II through XII intact. Strength 5/5 throughout. No focal deficits. LABORATORY DATA White blood cell count 24.2, hemoglobin 9, hematocrit 26.2, platelet count 134. Sodium 129, potassium 3.2, chloride 91, bicarb 29.3, BUN 18, creatinine 0.7, total bilirubin 10.1, AST 332, ALT 328, alkaline phosphatase 1483, albumin 1.4. IMAGING Chest x-ray shows a right chest port in good position, minimal parenchymal opacity in the right lung base, no significant effusions. ASSESSMENT Mr. Tineo is a pleasant 66-year-old gentleman with history of metastatic pancreatic cancer, who presented to the hospital with electrolyte abnormalities, hyponatremia, hypokalemia, acute kidney injury. The patient was also found to have significant elevation in bilirubin as well as transaminases concerning for a cholestatic process. PLAN 1. Elevated liver enzymes: cholestatic pattern with significant elevation of total bilirubin and alkaline phosphatase as well as moderate transaminitis. An obstructive process could be secondary to pancreatic causing compression on the common biliary duct versus infiltrative process in the liver from metastatic disease. We will plan to perform an abdominal ultrasound today. If significant CBD dilation, may consider performing ERCP with metal stent placement for decompression. Based on imaging results, will decide if he needs further imaging evaluation with an MRCP versus going directly to an ERCP for therapeutic purposes. If this is the case, he will most likely need to be transferred to the [facility]. We will continue to monitor and trend liver enzymes daily. He is currently being covered with cefepime empirically. All other medical problems will be addressed by the primary team. We would like to thank Dr. Keller for this consultation and allowing us to participate in the care of Mr. Tineo. We will follow the patient along with you. Please call us with any questions or concerns. MD JONES Ramos /1:40 PM /1:59 PM JENELLE
[2016-04-01 16:00] VITALS: BP 124/65; PULSE 75; RESP 18; TEMP 99; O2SAT 96
--- NOTE | 2016-04-01 17:10 | RADHPO ---
EXAM DATE/TIME: 04/01/2016 15:57 [place] COMPARISON: No previous studies available for comparison. EXTERNAL COMPARISON : [facility], CT ABDOMEN & PELVIS W CONTRAST, February 20, 2016. December 04, 2015. PET/CT - T UMOR METABOLISM, January 02, 2016. INDICATIONS : Jaundice. MEDICAL HISTORY : Carcinoma, pancreas. Metastatic, liver. Hypercholesterolemia. HTN. GERD. Enlarged prostate. Arthriti s. SURGICAL HISTORY : Appendectomy. Inguinal hernia repair. Right lung tumor removed. Orthopedic surgery; rotator cuffs, hammer toes and thumb. Chemotherapy. Blood transfusions. ENCOUNTER: Initial ACUITY: 4-6 months PAIN SCORE: 3/10 LOCATION: Bilateral upper quadrant MEASUREMENTS: LIVER: 17.4 cm length COMMON DUCT: 4 mm RIGHT KIDNEY: 12.0 x 5.3 x 6.2 cm SPLEEN: 11.5 cm length FINDINGS: LIVER: The liver demonstrates diffusely heterogeneous echotexture with multiple rounded areas of increased e chogenicity concerning for metastatic lesions. The largest of these are seen within the right lobe me asuring 4.7 x 4.2 x 6.2 cm and 8.4 x 5.8 x 5.4 cm. No evidence of biliary obstruction. COMMON DUCT: No intraluminal mass or stone visualized. GALLBLADDER: The gallbladder is significantly abnormal in appearance with diffuse wall thickening measuring 9 mm. Debris is identified within the contracted lumen. PANCREAS: The pancreas is not well visualized on this exam. RIGHT KIDNEY: No hydronephrosis, stone or mass. SPLEEN: No focal lesion. CONCLUSION: 1.Abnormal exam with multiple heterogeneous mixed echogenicity lesions identified within the liver co nsistent with multiple metastatic lesions. The largest of these are seen within the right lobe. 2.Abnormal wall thickening of the gallbladder which may represent metastatic involvement versus low o ncotic pressure. No evidence of ascites on this exam. The pancreas is not visualized well and the pre viously indicated masses are seen. Milli Burger MD on April 01, 2016 at 16:59 Board Certified Radiologist. This report was verified electronically.
--- NOTE | 2016-04-01 17:43 | PD.ONC.PN ---
Objective Data Date Time Temp Pulse Resp B/P Pulse Ox O2 Delivery O2 Flow Rate FiO2 04/01/16 12:00 98.7 71 18 124/62 97 04/01/16 11:12 18 04/01/16 08:00 98.1 78 18 141/71 96 04/01/16 00:00 98.6 83 18 124/74 98 03/31/16 20:00 98.9 89 18 119/69 99 04/01/16 04/01/16 04/01/16 07:00 15:00 23:00 Intake Total 360 ml Output Total 650 ml Balance 360 ml -650 ml Result Diagram: 04/01/16 0950 04/01/16 0535 Laboratory Results Laboratory Tests Test 03/31/16 04/01/16 04/01/16 19:20 05:35 09:50 Urine Collection Type CLEAN CATCH Urine Color RA Urine Turbidity CLEAR Urine pH 6.0 Urine Specific [place] 1.017 Urine Protein 30 mg/dL Urine Glucose (UA) 100 mg/dL Urine Ketones NEG mg/dL Urine Occult Blood NEG Urine Nitrite NEG Urine Bilirubin LARGE Urine Leukocyte Esterase NEG Urine WBC 3-5 /hpf Urine Squamous Epithelial 0-2 /hpf Cells Urine Bacteria RARE /hpf Urine Fine Granular Casts 6-9 /lpf Urine White Blood Cell Casts 0-2 /lpf Microscopic Urinalysis Comment CULT NOT INDICATED Sodium Level 129 MEQ/L Potassium Level 3.2 MEQ/L Chloride Level 91 MEQ/L Carbon Dioxide Level 29.3 MEQ/L Anion Gap 9 MEQ/L Blood Urea Nitrogen 18 MG/DL Creatinine 0.70 MG/DL Estimat Glomerular Filtration 112 ML/MIN Rate Random Glucose 60 MG/DL Calcium Level 7.7 MG/DL Total Bilirubin 10.1 MG/DL Aspartate Amino Transf 332 U/L (AST/SGOT) Alanine Aminotransferase 328 U/L (ALT/SGPT) Alkaline Phosphatase 1483 U/L Total Protein 4.8 GM/DL Albumin 1.4 GM/DL White Blood Count 24.2 TH/MM3 Red Blood Count 2.99 MIL/MM3 Hemoglobin 9.0 GM/DL Hematocrit 26.2 % Mean Corpuscular Volume 87.6 FL Mean Corpuscular Hemoglobin 30.0 PG Mean Corpuscular Hemoglobin 34.2 % Concent Red Cell Distribution Width 20.8 % Platelet Count 134 TH/MM3 Mean Platelet Volume 9.1 FL CBC Comment AUTO DIFF Differential Total Cells 100 Counted Neutrophils % (Manual) 87 % Band Neutrophils % 1 % Lymphocytes % 9 % Monocytes % 3 % Neutrophils # (Manual) 21.3 TH/MM3 Differential Comment FINAL DIFF MANUAL Platelet Estimate LOW Platelet Morphology Comment NORMAL Target Cells 1+ Culture Results Microbiology Date/Time Procedure Status Source Growth 03/31/16 14:00 Aerobic Blood Culture - Preliminary Resulted Blood Peripheral NO GROWTH IN 1 DAY 03/31/16 14:00 Anaerobic Blood Culture - Preliminary Resulted Blood Peripheral NO GROWTH IN 1 DAY 03/31/16 14:15 Aerobic Blood Culture - Preliminary Resulted Blood Peripheral NO GROWTH IN 1 DAY 03/31/16 14:15 Anaerobic Blood Culture - Preliminary Resulted Blood Peripheral NO GROWTH IN 1 DAY Administered Medications Medications (Trade) Dose Ordered Sig/Rock Route PRN Reason Start Time Stop Time Status Last Admin Dose Admin Sodium Chloride (NS 1000 ml Inj) 1,000 ml @ 125 mls/hr Q8H IV 03/30/16 23:15 04/01/16 05:33 IV Flush (NS Flush) 2 ml BID FLUSH 03/31/16 09:00 04/01/16 10:11 Enoxaparin Sodium 40 mg 40 mg Q24H SQ 03/31/16 09:00 04/01/16 10:11 Cefepime HCl/ Sodium Chloride (Maxipime Inj/NS Inj) 100 ml @ 200 mls/hr DAILY@00 IV 04/01/16 00:00 04/01/16 00:14 Aspirin (Ecotrin Ec) 81 mg DAILY PO 04/01/16 09:00 04/01/16 10:12 Diltiazem HCl (Cardizem Cd) 300 mg DAILY PO 03/31/16 16:00 04/01/16 10:11 Finasteride (Proscar) 5 mg DAILY PO 03/31/16 14:15 04/01/16 10:12 Pantoprazole Sodium (Protonix) 40 mg DAILY PO 04/01/16 09:00 04/01/16 10:11 Ondansetron HCl (Zofran Odt) 8 mg TID PO 03/31/16 18:00 04/01/16 13:22 Oxycodone HCl (Roxicodone) 5 mg Q4HR PRN PO PAIN 03/31/16 16:00 04/01/16 10:12 Objective Remarks Nilo Dumont MD Apr 01, 2016 17:43 NECK: Supple, trachea midline. No JVD or lymphadenopathy. LYMPHATIC: No adenopathy. CARDIOVASCULAR: Regular rate and rhythm without murmurs. RESPIRATORY: Breath sounds equal bilaterally. No accessory muscle use. GASTROINTESTINAL: Abdomen soft, non-tender, nondistended. EXTREMITIES: No cyanosis, or edema. MUSCULOSKELETAL: Adequate muscle tone. NEUROLOGICAL: No obvious focal deficit. Awake, alert, and oriented x3. PSYCHIATRIC: Appropriate mood and affect; insight and judgment normal. Nilo Dumont MD Apr 01, 2016 17:43
--- NOTE | 2016-04-01 18:23 | HHI.PR ---
Subjective Remarks Patient denies nausea or vomiting. does have chronic abdominal pain, controlled with patch (fentanyl?) Objective Vitals Vital Signs Date Time Temp Pulse Resp B/P Pulse Ox O2 Delivery O2 Flow Rate FiO2 04/01/16 16:00 99.0 75 18 124/65 96 04/01/16 12:00 98.7 71 18 124/62 97 04/01/16 11:12 18 04/01/16 08:00 98.1 78 18 141/71 96 04/01/16 00:00 98.6 83 18 124/74 98 03/31/16 20:00 98.9 89 18 119/69 99 I/O 03/31/16 03/31/16 03/31/16 04/01/16 04/01/16 04/01/16 07:00 15:00 23:00 07:00 15:00 23:00 Intake Total 1604 ml 400 ml 360 ml Output Total 650 ml Balance 1604 ml 400 ml 360 ml -650 ml Intake Oral 400 ml 360 ml IV Total 1604 ml Output Urine Total 650 ml # Voids 2 1 # Bowel Movements 0 0 Result Diagram: 04/01/16 0950 04/01/16 0535 Objective Remarks GENERAL: Well-nourished, well-developed patient. SKIN: Warm and dry. HEAD: Normocephalic. EYES: No scleral icterus. No injection or drainage. NECK: Supple, trachea midline. No JVD or lymphadenopathy. CARDIOVASCULAR: Regular rate and rhythm without murmurs, gallops, or rubs. RESPIRATORY: Breath sounds equal bilaterally. No accessory muscle use. GASTROINTESTINAL: Abdomen soft, non-tender, nondistended. EXTREMITIES: No cyanosis, or edema. NEUROLOGICAL: Awake, alert, and oriented x 3. Non-focal. A/P Problem List: (1) Hypotension ICD Code: I95.9 Status: Acute (2) Acute kidney injury ICD Code: N17.9 Status: Acute (3) Dehydration with hyponatremia ICD Code: E87.1 Status: Acute (4) Leukocytosis ICD Code: D72.829 Status: Acute (5) LFT elevation ICD Code: R94.5 Status: Acute Assessment and Plan Follow-up liver ultrasound. Possible MRCP vs ERCP depending on results. Renew fentanyl patch. Cont IVF. Cont cefepime empirically for the leukocytosis. Repeat CMP and CBC in a.m. Hyponatremia is chronic/improved and secondary concern. Monitor LFTs. Problem Qualifiers (1) Leukocytosis: Qualified Code: D72.829 - Leukocytosis, unspecified type Kiersten Vásquez MD Apr 01, 2016 18:23
--- NOTE | 2016-04-01 18:40 | HHI.HP ---
HPI Service [facility] Primary Care Physician Shubham Ruiz Admission Diagnosis severe hyponatremia. Leukocytosis. Diagnoses: (1) Hypotension (2) Acute kidney injury (3) Dehydration with hyponatremia (4) Leukocytosis (5) LFT elevation Travel History International Travel<30 Days: No Contact w/Intl Traveler <30 Da: No Traveled to Known Affected Are: No History of Present Illness Patient is a 66-year-old gentleman with a history of pancreatic cancer in follow -up with Dr. Gonzalez who did come to the emergency room after his oncologist office called him with abnormal labs. He did arrive and had a BMP which showed some hyponatremia, acute kidney injury and leukocytosis. Patient says he has not been ill, no fevers or chills. He does take palliative chemotherapy for 3 weeks and is off a week. Last treatment was last Wednesday and labs were obtained at that time. Patient did have a sodium of 123 and after so normal saline and sodium is now 126. His acute kidney injury appears to be resolved also. Patient does have persistent leukocytosis. He denies any seizures or headache or shortness of breath. These reasons the patient was admitted to the hospital for further treatment of dehydration with hyponatremia Past Family Social History Past Medical History Pancreatic cancer with metastases to the liver and currently on palliative chemotherapy Hypertension Past Surgical History Appendectomy Right lung resection Plan of hernia repair Allergies: Coded Allergies: Codeine (Verified Allergy, Severe, HEADACHE AND FLUSHNESS, 03/30/16) Family History Son has melanoma Social History No current tobacco or alcohol dependency, retired [employer], lives with his Physical Exam Vital Signs Vital Signs Date Time Temp Pulse Resp B/P Pulse Ox O2 Delivery O2 Flow Rate FiO2 04/01/16 16:00 99.0 75 18 124/65 96 04/01/16 12:00 98.7 71 18 124/62 97 04/01/16 11:12 18 04/01/16 08:00 98.1 78 18 141/71 96 04/01/16 00:00 98.6 83 18 124/74 98 03/31/16 20:00 98.9 89 18 119/69 99 Physical Exam GENERAL: This is a well-nourished, well-developed patient, in no apparent distress. SKIN: No rashes, ecchymoses or lesions. Cool and dry. HEAD: Atraumatic. Normocephalic. No temporal or scalp tenderness. EYES: Pupils equal round and reactive. Extraocular motions intact. No scleral icterus. No injection or drainage. ENT: Nose without bleeding, purulent drainage or septal hematoma. Throat without erythema, tonsillar hypertrophy or exudate. Uvula midline. Airway patent. NECK: Trachea midline. No JVD or lymphadenopathy. Supple, nontender, no meningeal signs. CARDIOVASCULAR: Regular rate and rhythm without murmurs, gallops, or rubs. RESPIRATORY: Clear to auscultation. Breath sounds equal bilaterally. No wheezes , rales, or rhonchi. GASTROINTESTINAL: Abdomen soft, non-tender, nondistended. No hepato-splenomegaly , or palpable masses. No guarding. MUSCULOSKELETAL: Extremities without clubbing, cyanosis, or edema. No joint tenderness, effusion, or edema noted. No calf tenderness. Negative Homans sign bilaterally. NEUROLOGICAL: Awake and alert. Cranial nerves II through XII intact. Motor and sensory grossly within normal limits. Five out of 5 muscle strength in all muscle groups. Normal speech. Laboratory Laboratory Tests Test 03/31/16 04/01/16 04/01/16 19:20 05:35 09:50 Urine Collection Type CLEAN CATCH Urine Color RA Urine Turbidity CLEAR Urine pH 6.0 Urine Specific [place] 1.017 Urine Protein 30 Urine Glucose (UA) 100 Urine Ketones NEG Urine Occult Blood NEG Urine Nitrite NEG Urine Bilirubin LARGE Urine Leukocyte Esterase NEG Urine WBC 3-5 Urine Squamous Epithelial 0-2 Cells Urine Bacteria RARE Urine Fine Granular Casts 6-9 Urine White Blood Cell Casts 0-2 Microscopic Urinalysis Comment CULT NOT INDICATED Sodium Level 129 Potassium Level 3.2 Chloride Level 91 Carbon Dioxide Level 29.3 Anion Gap 9 Blood Urea Nitrogen 18 Creatinine 0.70 Estimat Glomerular Filtration 112 Rate Random Glucose 60 Calcium Level 7.7 Total Bilirubin 10.1 Aspartate Amino Transf 332 (AST/SGOT) Alanine Aminotransferase 328 (ALT/SGPT) Alkaline Phosphatase 1483 Total Protein 4.8 Albumin 1.4 White Blood Count 24.2 Red Blood Count 2.99 Hemoglobin 9.0 Hematocrit 26.2 Mean Corpuscular Volume 87.6 Mean Corpuscular Hemoglobin 30.0 Mean Corpuscular Hemoglobin 34.2 Concent Red Cell Distribution Width 20.8 Platelet Count 134 Mean Platelet Volume 9.1 CBC Comment AUTO DIFF Differential Total Cells 100 Counted Neutrophils % (Manual) 87 Band Neutrophils % 1 Lymphocytes % 9 Monocytes % 3 Neutrophils # (Manual) 21.3 Differential Comment FINAL DIFF MANUAL Platelet Estimate LOW Platelet Morphology Comment NORMAL Target Cells 1+ Date/Time Procedure Status Source Growth 03/31/16 14:15 Aerobic Blood Culture - Preliminary Resulted Blood Peripheral NO GROWTH IN 1 DAY 03/31/16 14:15 Anaerobic Blood Culture - Preliminary Resulted Blood Peripheral NO GROWTH IN 1 DAY Result Diagram: 04/01/16 0950 04/01/16 0535 Assessment and Plan Problem List: (1) Hypotension ICD Code: I95.9 Status: Acute Plan: Improved with IV hydration, continue to monitor patient (2) Acute kidney injury ICD Code: N17.9 Status: Acute Plan: Improved with IV hydration, avoid further nephrotoxic injury (3) Dehydration with hyponatremia ICD Code: E87.1 Status: Acute Plan: Sodium has gone from 123-127, will continue with slow normal saline and follow electrolytes Replace hypokalemia (4) Leukocytosis ICD Code: D72.829 Status: Acute Plan: Etiology unclear, UA and blood cultures pending May be acute phase reaction after chemotherapy Previous leukocytes have been normal Empiric cefepime Patient denies any fever, chills, SOB, Dysuria and is not on neupogen (5) LFT elevation ICD Code: R94.5 Status: Acute Plan: Patient with chronically elevated LFTs secondary to metastatic pancreatic cancer (metastases to the liver and currently on palliative chemotherapy with Dr. Gonzalez) continue surveillance noemi gupta Problem Qualifiers (1) Leukocytosis: Qualified Code: D72.829 - Leukocytosis, unspecified type Kiersten Vásquez MD Apr 01, 2016 18:40
[2016-04-01 20:00] VITALS: BP 121/62; PULSE 78; RESP 20; TEMP 98.8; O2SAT 94
[2016-04-01] MEDS: fentaNYL 50 MCG/HR PATCH TD SCH (21:24)
--- NOTE | 2016-04-01 23:06 | PD.ONC.PN ---
Subjective Subjective Remarks icteric had u/s today reviewed the results of U/S with patient metastatic disease to liver possible obstruction of the biliary tract. needs MRCP for assessment Wants to eat. NPO since had U/S denies any pain c/o pain discussed with RN Objective Data Date Time Temp Pulse Resp B/P Pulse Ox O2 Delivery O2 Flow Rate FiO2 04/01/16 20:00 98.8 78 20 121/62 94 04/01/16 18:56 18 04/01/16 16:00 99.0 75 18 124/65 96 04/01/16 12:00 98.7 71 18 124/62 97 04/01/16 08:00 98.1 78 18 141/71 96 04/01/16 00:00 98.6 83 18 124/74 98 04/01/16 04/01/16 04/01/16 07:00 15:00 23:00 Intake Total 360 ml 350 ml Output Total 650 ml Balance 360 ml -300 ml Result Diagram: 04/01/16 0950 04/01/16 0535 Laboratory Results Laboratory Tests Test 04/01/16 04/01/16 05:35 09:50 Sodium Level 129 MEQ/L Potassium Level 3.2 MEQ/L Chloride Level 91 MEQ/L Carbon Dioxide Level 29.3 MEQ/L Anion Gap 9 MEQ/L Blood Urea Nitrogen 18 MG/DL Creatinine 0.70 MG/DL Estimat Glomerular Filtration 112 ML/MIN Rate Random Glucose 60 MG/DL Calcium Level 7.7 MG/DL Total Bilirubin 10.1 MG/DL Aspartate Amino Transf 332 U/L (AST/SGOT) Alanine Aminotransferase 328 U/L (ALT/SGPT) Alkaline Phosphatase 1483 U/L Total Protein 4.8 GM/DL Albumin 1.4 GM/DL White Blood Count 24.2 TH/MM3 Red Blood Count 2.99 MIL/MM3 Hemoglobin 9.0 GM/DL Hematocrit 26.2 % Mean Corpuscular Volume 87.6 FL Mean Corpuscular Hemoglobin 30.0 PG Mean Corpuscular Hemoglobin 34.2 % Concent Red Cell Distribution Width 20.8 % Platelet Count 134 TH/MM3 Mean Platelet Volume 9.1 FL CBC Comment AUTO DIFF Differential Total Cells 100 Counted Neutrophils % (Manual) 87 % Band Neutrophils % 1 % Lymphocytes % 9 % Monocytes % 3 % Neutrophils # (Manual) 21.3 TH/MM3 Differential Comment FINAL DIFF MANUAL Platelet Estimate LOW Platelet Morphology Comment NORMAL Target Cells 1+ Culture Results Microbiology Date/Time Procedure Status Source Growth 03/31/16 14:00 Aerobic Blood Culture - Preliminary Resulted Blood Peripheral NO GROWTH IN 1 DAY 03/31/16 14:00 Anaerobic Blood Culture - Preliminary Resulted Blood Peripheral NO GROWTH IN 1 DAY 03/31/16 14:15 Aerobic Blood Culture - Preliminary Resulted Blood Peripheral NO GROWTH IN 1 DAY 03/31/16 14:15 Anaerobic Blood Culture - Preliminary Resulted Blood Peripheral NO GROWTH IN 1 DAY Imaging Studies Last 24 hours Impressions Liver Ultrasound 04/01/16 0000 Signed Impressions: Service Date/Time: Friday, April 01, 2016 15:57 - CONCLUSION: 1.Abnormal exam with multiple heterogeneous mixed echogenicity lesions identified within the liver consistent with multiple metastatic lesions. The largest of these are seen within the right lobe. 2.Abnormal wall thickening of the gallbladder which may represent metastatic involvement versus low oncotic pressure. No evidence of ascites on this exam. The pancreas is not visualized well and the previously indicated masses are seen. Milli Burger MD Administered Medications Medications (Trade) Dose Ordered Sig/Rock Route PRN Reason Start Time Stop Time Status Last Admin Dose Admin Sodium Chloride (NS 1000 ml Inj) 1,000 ml @ 125 mls/hr Q8H IV 03/30/16 23:15 04/01/16 22:37 IV Flush (NS Flush) 2 ml BID FLUSH 03/31/16 09:00 04/01/16 10:11 Enoxaparin Sodium 40 mg 40 mg Q24H SQ 03/31/16 09:00 04/01/16 10:11 Cefepime HCl/ Sodium Chloride (Maxipime Inj/NS Inj) 100 ml @ 200 mls/hr DAILY@00 IV 04/01/16 00:00 04/01/16 00:14 Aspirin (Ecotrin Ec) 81 mg DAILY PO 04/01/16 09:00 04/01/16 10:12 Diltiazem HCl (Cardizem Cd) 300 mg DAILY PO 03/31/16 16:00 04/01/16 10:11 Finasteride (Proscar) 5 mg DAILY PO 03/31/16 14:15 04/01/16 10:12 Pantoprazole Sodium (Protonix) 40 mg DAILY PO 04/01/16 09:00 04/01/16 10:11 Ondansetron HCl (Zofran Odt) 8 mg TID PO 03/31/16 18:00 04/01/16 17:56 Oxycodone HCl (Roxicodone) 5 mg Q4HR PRN PO PAIN 03/31/16 16:00 04/01/16 22:38 Fentanyl (Duragesic 50 Mcg Patch.72 Hr) 1 patch Q3D TD 04/01/16 20:00 04/01/16 21:24 Objective Remarks GENERAL: nad, icteric SKIN: Warm and dry. NECK: Supple, trachea midline. No JVD or lymphadenopathy. LYMPHATIC: No adenopathy. CARDIOVASCULAR: Regular rate and rhythm without murmurs. RESPIRATORY: Breath sounds equal bilaterally. No accessory muscle use. GASTROINTESTINAL: mild abdominal tenderness ruq EXTREMITIES: No cyanosis, or edema. Assessment/Plan Problem List: (1) Pancreatic cancer metastasized to liver Status: Acute (2) Leukocytosis Status: Acute (3) Dehydration with hyponatremia Status: Acute (4) Acute kidney injury Status: Acute (5) LFT elevation Status: Acute Assessment 66-year-old man with with metastatic unresectable pancreatic cancer receiving first-line chemotherapy with Abraxane and gemcitabine. His course was complicated by hyponatremia, renal insufficiency. 1. 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 - Further treatment outpatient-- failing 1st line treatment. 2. Leukocytosis---no overt evidence of infection//no fevers - but given biliary obstruction--continue IV cefepime 3. Pain control - Start fentanyl 50mcg q 72hr - IV morphine 1mg q2-4 prn pain 4. Transaminitis due to progressive liver disease and obstruction 5. Anemia - anemia studies 6. NERY and Hyponatremia - likely from prerenal azotemia - improved with hydration 7. FEN - malnutritioned Albumin 1.4 - nutrition consult - ensure TID with meals Problem Qualifiers (1) Leukocytosis: Qualified Code: D72.829 - Leukocytosis, unspecified type Nilo Dumont MD Apr 01, 2016 23:05
[2016-04-01] MEDS ORDERED: MORPHINE SULFATE 4 MG/ML INJ IV PUSH PRN (23:15)
[2016-04-02] VITALS: BP 125/69; PULSE 80; RESP 20; TEMP 98.7; O2SAT 96
[2016-04-02 04:00] VITALS: BP 135/69; PULSE 89; RESP 20; TEMP 98.2; O2SAT 97
[2016-04-02 06:28] LABS: POTASSIUM 3.2 MEQ/L (3.5-5.1)
[2016-04-02 06:45] LABS: BICARBONATE 25.5 MEQ/L (21.0-32.0); CALCIUM-PROTEIN CORRECTED 8.7 MG/DL (8.5-10.1); TOTAL BILIRUBIN ADULT 10.2 MG/DL (0.2-1.0)
[2016-04-02] MEDS: SODIUM CHLOR 0.9% 1000 ML INJ 1,000 ML IV SCH ×2 (07:15→15:15)
[2016-04-02 08:00] VITALS: BP 139/73; PULSE 83; RESP 18; TEMP 97.9; O2SAT 96
[2016-04-02 09:20] LABS: TRANSFERRIN IRON PROFILE 93 MG/DL (200-360)
[2016-04-02] MEDS ORDERED: LORazepam 2 MG/ML VIAL IV PUSH ONE (09:30)
[2016-04-02] MEDS: FINASTERIDE 5 MG TAB PO SCH (10:18)
[2016-04-02] MEDS: PANTOPRAZOLE SOD 40 MG DELAYED RELEASE TAB PO SCH (10:18)
[2016-04-02] MEDS: ASPIRIN EC 81 MG TABEC PO SCH (10:18)
[2016-04-02] MEDS: DILTIAZEM-CD 300 MG CAP ER PO SCH (10:18)
[2016-04-02] MEDS: SODIUM CHLORIDE 0.9% FLUSH 5 ML FLUSH FLUSH SCH ×2 (10:19→21:00)
[2016-04-02] MEDS: ONDANSETRON ODT 4 MG TAB PO SCH ×3 (10:20→18:00)
[2016-04-02] MEDS: ENOXAPARIN SODIUM 40 MG/0.4 ML SYRINGE SQ SCH (10:20)
[2016-04-02 10:50] LABS: AUTOMATED NEUTROPHIL # 20.7 TH/MM3 (1.8-7.7); BASOPHIL # 0.1 TH/MM3 (0-0.2); BASOPHIL % 0.5 % (0.0-2.0); EOSINOPHIL # 0.1 TH/MM3 (0-0.4); EOSINOPHIL % 0.5 % (0.0-4.0); HEMATOCRIT 24.1 % (39.0-51.0); LYMPH % 9.6 % (9.0-44.0); LYMPHOCYTE # 2.4 TH/MM3 (1.0-4.8); MEAN CELL VOLUME 87.5 FL (80.0-100.0); MEAN CORPUSCULAR HEMOGLOBIN 30.6 PG (27.0-34.0); MONO % 5.4 % (0.0-8.0); PLATELET COUNT 110 TH/MM3 (150-450); RED BLOOD COUNT 2.75 MIL/MM3 (4.50-5.90); RED CELL DISTRIBUTION WIDTH 19.7 % (11.6-17.2); WHITE BLOOD COUNT 24.6 TH/MM3 (4.0-11.0)
[2016-04-02 10:53] LABS: HEMO FLAGS AUTO DIFF
[2016-04-02 11:32] LABS: BANDS 1 % (0-6); MYELOCYTES 1 % (0-0); NEUTROPHIL # MANUAL DIFF 20.4 TH/MM3 (1.8-7.7); POLYS (SEG NEUTROPHILS) 81 % (16-70); WBC DIFF SAMPLE 100
[2016-04-02 11:34] LABS: TARGET CELLS 1+ (NORMAL)
[2016-04-02 11:35] LABS: PLATELET ESTIMATE SMEAR LOW (NORMAL); PLATELET MORPHOLOGY CLUMPED (NORMAL); SCAN/DIFF FINAL DIFF MANUAL; STOMATOCYTES 1+ (NORMAL)
[2016-04-02 12:00] VITALS: BP 126/71; PULSE 83; RESP 18; TEMP 97.9; O2SAT 95
--- NOTE | 2016-04-02 12:35 | HHI.PR ---
Subjective Remarks The patient denies any abdominal pain, fever, nausea or vomiting. He does notice that his urine is turning darker in color. Objective Vitals Vital Signs Date Time Temp Pulse Resp B/P Pulse Ox O2 Delivery O2 Flow Rate FiO2 04/02/16 08:00 97.9 83 18 139/73 96 04/02/16 04:00 98.2 89 20 135/69 97 04/02/16 00:00 98.7 80 20 125/69 96 04/01/16 20:00 98.8 78 20 121/62 94 04/01/16 18:56 18 04/01/16 16:00 99.0 75 18 124/65 96 I/O 04/01/16 04/01/16 04/01/16 04/02/16 04/02/16 04/02/16 07:00 15:00 23:00 07:00 15:00 23:00 Intake Total 360 ml 2291 ml 1103 ml Output Total 650 ml Balance 360 ml 1641 ml 1103 ml Intake Oral 360 ml 350 ml IV Total 1941 ml 1103 ml Output Urine Total 650 ml # Voids 1 3 0 # Bowel Movements 0 0 Result Diagram: 04/02/16 1000 04/02/16 0600 Objective Remarks GENERAL: Well-nourished, well-developed patient. SKIN: Warm and dry. HEAD: Normocephalic. EYES: No scleral icterus. No injection or drainage. NECK: Supple, trachea midline. No JVD or lymphadenopathy. CARDIOVASCULAR: Regular rate and rhythm without murmurs, gallops, or rubs. RESPIRATORY: Breath sounds equal bilaterally. No accessory muscle use. GASTROINTESTINAL: Abdomen soft, non-tender, nondistended. EXTREMITIES: No cyanosis, or edema. NEUROLOGICAL: Awake, alert, and oriented x 3. Non-focal. A/P Problem List: (1) Hypotension ICD Code: I95.9 Status: Acute (2) Acute kidney injury ICD Code: N17.9 Status: Acute (3) Dehydration with hyponatremia ICD Code: E87.1 Status: Acute (4) Leukocytosis ICD Code: D72.829 Status: Acute (5) LFT elevation ICD Code: R94.5 Status: Acute Assessment and Plan Liver ultrasound demonstrating the known liver masses. MRCP has been ordered. Bilirubin is stable today as well as LFTs. The leukocytosis is persistent. The concern with the obstruction would be that he might develop infections thus we will continue him on the cefepime IV. This afternoon I did review the MRCP and discussed with the GI physician as well as with Dr. Miguel of oncology. Unfortunately GI cannot do an ERCP to address of the obstruction from the mass. The patient will need to have a PTC. I believe this should be done sooner rather than later given the risk for developing infection and his elevated white count. We will need to consult interventional radiology and asked them to do this tomorrow at the [facility] as no anesthesia is available here. Problem Qualifiers (1) Leukocytosis: Qualified Code: D72.829 - Leukocytosis, unspecified type Kiersten Vásquez MD Apr 02, 2016 12:35
[2016-04-02] MEDS ORDERED: GADODIAMIDE PF 287 MG/ML 5 ML VIAL (for RAD MRI) IV ONE (13:40)
--- NOTE | 2016-04-02 15:10 | RADHPO ---
EXAM DATE/TIME: 04/02/2016 13:18 [place] COMPARISON: No previous studies available for comparison. INDICATIONS : Metastatic disease. Jaundice. CONTRAST: 15 cc Omniscan (gadodiamide) IV MEDICAL HISTORY : Metastatic, liver. Carcinoma, pancreas. SURGICAL HISTORY : Appendectomy. ENCOUNTER: Initial ACUITY: 2 day PAIN SCORE: 3/10 LOCATION: Upper abdomen. TECHNIQUE: Multiplanar, multisequence magnetic resonance imaging of the abdomen was performed. High-resolution 3D dataset was utilized to reconstruct maximum-intensity projection (MIP) images. FINDINGS: There are to numerous to count liver lesions present with a large dominant mass in segment 6 measurin g 7.4 x 6.7 CM. There is a second fluid mass measuring 4 cm some diameter in the redd hepatis compre ssing the right portal vein without thrombus as well as asymmetric dilatation of the ducts in the [place] worse in the left lobe and on the right. Less than 1 cm metastatic lesions are present throughout both lobes of the liver. No discrete masses identified. The spleen is normal in size and free of foca l defects. No abnormally enlarged lymph nodes are identified. CONCLUSION: 1. Widespread metastatic disease throughout the liver most prominent in segment 6 where there is a 7. 4 cm lesion. There is a mass in the redd hepatis with stenosis of the right portal vein as well as c ompression of the biliary ducts worse in the left lobe than on the right. Mario Merida MD on April 02, 2016 at 14:50 Board Certified Radiologist. This report was verified electronically.
[2016-04-02 16:00] VITALS: BP 135/69; PULSE 79; RESP 18; TEMP 97; O2SAT 96
--- NOTE | 2016-04-02 16:39 | PD.ONC.PN ---
Subjective Subjective Remarks Mid abdominal pain. No N/V. No CP/SOB Objective Data Date Time Temp Pulse Resp B/P Pulse Ox O2 Delivery O2 Flow Rate FiO2 04/02/16 15:43 18 04/02/16 08:00 97.9 83 18 139/73 96 04/02/16 04:00 98.2 89 20 135/69 97 04/02/16 00:00 98.7 80 20 125/69 96 04/01/16 20:00 98.8 78 20 121/62 94 04/02/16 04/02/16 04/02/16 07:00 15:00 23:00 Intake Total 1103 ml 650 ml Balance 1103 ml 650 ml Result Diagram: 04/02/16 1000 04/02/16 0600 Laboratory Results Laboratory Tests Test 04/02/16 04/02/16 06:00 10:00 Sodium Level 131 MEQ/L Potassium Level 3.2 MEQ/L Chloride Level 96 MEQ/L Carbon Dioxide Level 25.5 MEQ/L Anion Gap 10 MEQ/L Blood Urea Nitrogen 16 MG/DL Creatinine 0.76 MG/DL Estimat Glomerular Filtration 102 ML/MIN Rate Random Glucose 133 MG/DL Calcium Level 7.3 MG/DL Protein Corrected Calcium 8.7 MG/DL Iron Level 22 MCG/DL Total Iron Binding Capacity 130 MCG/DL Percent Iron Saturation 16.9 % Transferrin 93 MG/DL Total Bilirubin 10.2 MG/DL Aspartate Amino Transf 332 U/L (AST/SGOT) Alanine Aminotransferase 341 U/L (ALT/SGPT) Alkaline Phosphatase 1399 U/L Total Protein 4.6 GM/DL Albumin 1.3 GM/DL Vitamin B12 Level GREATER THAN 2000 PG/ML White Blood Count 24.6 TH/MM3 Red Blood Count 2.75 MIL/MM3 Hemoglobin 8.4 GM/DL Hematocrit 24.1 % Mean Corpuscular Volume 87.5 FL Mean Corpuscular Hemoglobin 30.6 PG Mean Corpuscular Hemoglobin 35.0 % Concent Red Cell Distribution Width 19.7 % Platelet Count 110 TH/MM3 Mean Platelet Volume 9.2 FL Neutrophils (%) (Auto) 84.0 % Lymphocytes (%) (Auto) 9.6 % Monocytes (%) (Auto) 5.4 % Eosinophils (%) (Auto) 0.5 % Basophils (%) (Auto) 0.5 % Neutrophils # (Auto) 20.7 TH/MM3 Lymphocytes # (Auto) 2.4 TH/MM3 Monocytes # (Auto) 1.3 TH/MM3 Eosinophils # (Auto) 0.1 TH/MM3 Basophils # (Auto) 0.1 TH/MM3 CBC Comment AUTO DIFF Differential Total Cells 100 Counted Neutrophils % (Manual) 81 % Band Neutrophils % 1 % Lymphocytes % 10 % Monocytes % 7 % Neutrophils # (Manual) 20.4 TH/MM3 Myelocytes 1 % Differential Comment FINAL DIFF MANUAL Platelet Estimate LOW Platelet Morphology Comment CLUMPED Target Cells 1+ Stomatocytes 1+ Magnesium Level 1.8 MG/DL Culture Results Microbiology Date/Time Procedure Status Source Growth 03/31/16 14:00 Aerobic Blood Culture - Preliminary Resulted Blood Peripheral NO GROWTH IN 2 DAYS 03/31/16 14:00 Anaerobic Blood Culture - Preliminary Resulted Blood Peripheral NO GROWTH IN 2 DAYS 03/31/16 14:15 Aerobic Blood Culture - Preliminary Resulted Blood Peripheral NO GROWTH IN 2 DAYS 03/31/16 14:15 Anaerobic Blood Culture - Preliminary Resulted Blood Peripheral NO GROWTH IN 2 DAYS Imaging Studies Last 24 hours Impressions Cholangiopancreatography MRI 04/02/16 0000 Signed Impressions: Service Date/Time: March 13:18 - CONCLUSION: 1. Widespread metastatic disease throughout the liver most prominent in segment 6 where there is a 7.4 cm lesion. There is a mass in the redd hepatis with stenosis of the right portal vein as well as compression of the biliary ducts worse in the left lobe than on the right. Mario Merida MD Administered Medications Medications (Trade) Dose Ordered Sig/Rock Route PRN Reason Start Time Stop Time Status Last Admin Dose Admin Sodium Chloride (NS 1000 ml Inj) 1,000 ml @ 125 mls/hr Q8H IV 03/30/16 23:15 04/01/16 22:37 IV Flush (NS Flush) 2 ml BID FLUSH 03/31/16 09:00 04/02/16 10:19 Enoxaparin Sodium 40 mg 40 mg Q24H SQ 03/31/16 09:00 04/02/16 10:20 Cefepime HCl/ Sodium Chloride (Maxipime Inj/NS Inj) 100 ml @ 200 mls/hr DAILY@00 IV 04/01/16 00:00 04/01/16 23:55 Aspirin (Ecotrin Ec) 81 mg DAILY PO 04/01/16 09:00 04/02/16 10:18 Diltiazem HCl (Cardizem Cd) 300 mg DAILY PO 03/31/16 16:00 04/02/16 10:18 Finasteride (Proscar) 5 mg DAILY PO 03/31/16 14:15 04/02/16 10:18 Pantoprazole Sodium (Protonix) 40 mg DAILY PO 04/01/16 09:00 04/02/16 10:18 Ondansetron HCl (Zofran Odt) 8 mg TID PO 03/31/16 18:00 04/02/16 13:00 Oxycodone HCl (Roxicodone) 5 mg Q4HR PRN PO PAIN 03/31/16 16:00 04/02/16 14:06 Fentanyl (Duragesic 50 Mcg Patch.72 Hr) 1 patch Q3D TD 04/01/16 20:00 04/01/16 21:24 Objective Remarks GENERAL: Well-nourished, well-developed patient. SKIN: Warm and dry. Jaundiced HEAD: Normocephalic. EYES: + scleral icterus. No injection or drainage. NECK: Supple, trachea midline. No JVD or lymphadenopathy. LYMPHATIC: No adenopathy. CARDIOVASCULAR: Regular rate and rhythm without murmurs. RESPIRATORY: Breath sounds equal bilaterally. No accessory muscle use. GASTROINTESTINAL: Abdomen soft, Tender mid abdomen, Slightly distended EXTREMITIES: No cyanosis, 1+ BLE edema. MUSCULOSKELETAL: Adequate muscle tone. NEUROLOGICAL: No obvious focal deficit. Awake, alert, and oriented x3. PSYCHIATRIC: Appropriate mood and affect; insight and judgment normal. Assessment/Plan Problem List: (1) Pancreatic cancer metastasized to liver Status: Acute (2) Leukocytosis Status: Acute (3) Dehydration with hyponatremia Status: Acute (4) Acute kidney injury Status: Acute (5) LFT elevation Status: Acute Assessment 66-year-old man with with metastatic unresectable pancreatic cancer receiving first-line chemotherapy with Abraxane and gemcitabine. His course was complicated by hyponatremia, renal insufficiency. 1. 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 - Further treatment outpatient-- failing 1st line treatment. 04/02/16 MRCP showed extensive liver mets, largest 7.4cm and redd hepatis mass compressing the biliary ducts L>R. He is going to need ERCP and biliary stent placement. GI has been consulted. Will need to be transferred to [facility] for the procedure. 2. Leukocytosis---no overt evidence of infection//no fevers - but given biliary obstruction--continue IV cefepime - Monitor for cholangitis. 3. Pain control - Start fentanyl 50mcg q 72hr - IV morphine 1mg q2-4 prn pain 4. Transaminitis due to progressive liver disease and obstruction 5. Anemia - anemia studies 6. NERY and Hyponatremia - likely from prerenal azotemia - improved with hydration 7. FEN - malnutritioned Albumin 1.4 - nutrition consult - ensure TID with meals Problem Qualifiers (1) Leukocytosis: Qualified Code: D72.829 - Leukocytosis, unspecified type Jay Fenton MD Apr 02, 2016 16:39
--- NOTE | 2016-04-02 18:30 | HHI.GIFU ---
Subjective Remarks Pt doing well, has mild abdominal discomfort. No BM's today. Objective Vitals I&O Vital Signs Date Time Temp Pulse Resp B/P Pulse Ox O2 Delivery O2 Flow Rate FiO2 04/02/16 15:43 18 04/02/16 08:00 97.9 83 18 139/73 96 04/02/16 04:00 98.2 89 20 135/69 97 04/02/16 00:00 98.7 80 20 125/69 96 04/01/16 20:00 98.8 78 20 121/62 94 I/O 04/01/16 04/01/16 04/01/16 04/02/16 04/02/16 04/02/16 07:00 15:00 23:00 07:00 15:00 23:00 Intake Total 360 ml 2291 ml 1103 ml 650 ml Output Total 650 ml Balance 360 ml 1641 ml 1103 ml 650 ml Intake Oral 360 ml 350 ml 650 ml IV Total 1941 ml 1103 ml Output Urine Total 650 ml # Voids 1 3 0 # Bowel Movements 0 0 Laboratory Laboratory Tests Test 04/02/16 04/02/16 06:00 10:00 Sodium Level 131 Potassium Level 3.2 Chloride Level 96 Carbon Dioxide Level 25.5 Anion Gap 10 Blood Urea Nitrogen 16 Creatinine 0.76 Estimat Glomerular Filtration 102 Rate Random Glucose 133 Calcium Level 7.3 Protein Corrected Calcium 8.7 Iron Level 22 Total Iron Binding Capacity 130 Percent Iron Saturation 16.9 Transferrin 93 Total Bilirubin 10.2 Aspartate Amino Transf 332 (AST/SGOT) Alanine Aminotransferase 341 (ALT/SGPT) Alkaline Phosphatase 1399 Total Protein 4.6 Albumin 1.3 Vitamin B12 Level GREATER THAN 2000 White Blood Count 24.6 Red Blood Count 2.75 Hemoglobin 8.4 Hematocrit 24.1 Mean Corpuscular Volume 87.5 Mean Corpuscular Hemoglobin 30.6 Mean Corpuscular Hemoglobin 35.0 Concent Red Cell Distribution Width 19.7 Platelet Count 110 Mean Platelet Volume 9.2 Neutrophils (%) (Auto) 84.0 Lymphocytes (%) (Auto) 9.6 Monocytes (%) (Auto) 5.4 Eosinophils (%) (Auto) 0.5 Basophils (%) (Auto) 0.5 Neutrophils # (Auto) 20.7 Lymphocytes # (Auto) 2.4 Monocytes # (Auto) 1.3 Eosinophils # (Auto) 0.1 Basophils # (Auto) 0.1 CBC Comment AUTO DIFF Differential Total Cells 100 Counted Neutrophils % (Manual) 81 Band Neutrophils % 1 Lymphocytes % 10 Monocytes % 7 Neutrophils # (Manual) 20.4 Myelocytes 1 Differential Comment FINAL DIFF MANUAL Platelet Estimate LOW Platelet Morphology Comment CLUMPED Target Cells 1+ Stomatocytes 1+ Magnesium Level 1.8 Date/Time Procedure Status Source Growth 03/31/16 14:15 Aerobic Blood Culture - Preliminary Resulted Blood Peripheral NO GROWTH IN 2 DAYS 03/31/16 14:15 Anaerobic Blood Culture - Preliminary Resulted Blood Peripheral NO GROWTH IN 2 DAYS Physical Exam HEENT: Pupils round and reactive to light; normocephalic; atraumatic; mild jaundice. Throat is clear. NECK: Neck is supple, no JVD, no lymphadenopathy. ABDOMEN: Soft, nondistended, mild diffuse tenderness in lower abdomen; no hepatosplenomegaly; bowel sounds are present in all four quadrants. EXTREMITIES: No clubbing, cyanosis, or edema. SKIN: Normal; no rash; jaundice. MANUFACTURING LEADER: No focal deficits; alert and oriented times three. Assessment and Plan Assessment: (1) Leukocytosis (2) LFT elevation Plan 1. Elevated LFT's, cholestasis - abdominal US and MRCP showing multiple metastatic lesions in the liver causing blockage of proximal intrahepatic ducts, no distal obstruction noted - based on imaging, ERCP would not relieve proximal biliary obstructions - concerns for cholangitis based on significant leucocytosis, on cefepime - recommend IR consult for possible PTC for decompression 2. metastatic pancreatic cancer - oncology following, follow recs Problem Qualifiers (1) Leukocytosis: Qualified Code: D72.829 - Leukocytosis, unspecified type Jarrod Lujan MD Apr 02, 2016 18:30
[2016-04-02 20:00] VITALS: BP 122/73; PULSE 80; RESP 18; TEMP 98.1; O2SAT 95
[2016-04-02] MEDS: POTASSIUM CHLORIDE 20 MEQ CONTROLLED RELEASE TAB PO SCH (21:04)
[2016-04-02] MEDS: CEFEPIME INJ 1,000 MG in SODIUM CHLORIDE 0.9% INJ 100 ML IV SCH (23:18)
[2016-04-03] VITALS (9 sets, daily range): BP systolic 116–147; BP diastolic 62–87; PULSE 83–96; RESP 16–19; TEMP 97.5–98.8; O2SAT 95–99
[2016-04-03] MEDS: SODIUM CHLOR 0.9% 1000 ML INJ 1,000 ML IV SCH ×4 (00:38→23:37)
[2016-04-03 06:05] LABS: AUTOMATED NEUTROPHIL # 15.1 TH/MM3 (1.8-7.7); BASOPHIL # 0.2 TH/MM3 (0-0.2); BASOPHIL % 1.2 % (0.0-2.0); EOSINOPHIL # 0.1 TH/MM3 (0-0.4); EOSINOPHIL % 0.3 % (0.0-4.0); HEMATOCRIT 24.6 % (39.0-51.0); HEMO FLAGS DIFF FINAL; LYMPH % 20.5 % (9.0-44.0); LYMPHOCYTE # 4.2 TH/MM3 (1.0-4.8); MEAN CELL VOLUME 88.1 FL (80.0-100.0); MEAN CORPUSCULAR HEMOGLOBIN 29.4 PG (27.0-34.0); MEAN CORPUSCULAR HGB CONC 33.4 % (32.0-36.0); MONO % 4.6 % (0.0-8.0); NEUT % 73.4 % (16.0-70.0); PLATELET COUNT 121 TH/MM3 (150-450); RED BLOOD COUNT 2.79 MIL/MM3 (4.50-5.90); RED CELL DISTRIBUTION WIDTH 20.5 % (11.6-17.2); WHITE BLOOD COUNT 20.6 TH/MM3 (4.0-11.0)
[2016-04-03 06:41] LABS: BICARBONATE 24.6 MEQ/L (21.0-32.0); CALCIUM-PROTEIN CORRECTED 8.5 MG/DL (8.5-10.1); POTASSIUM 3.2 MEQ/L (3.5-5.1)
[2016-04-03] MEDS: SODIUM CHLORIDE 0.9% FLUSH 5 ML FLUSH FLUSH SCH ×2 (09:00→20:58)
--- NOTE | 2016-04-03 09:12 | HHI.PR ---
Subjective Remarks in no acute distress. afebrile. pain is minimal. no nausea or vomiting. d/w the RN. Objective Vitals Vital Signs Date Time Temp Pulse Resp B/P Pulse Ox O2 Delivery O2 Flow Rate FiO2 04/03/16 01:00 98.6 83 18 147/75 95 04/02/16 20:00 98.1 80 18 122/73 95 04/02/16 16:00 97.0 79 18 135/69 96 04/02/16 15:43 18 04/02/16 12:00 97.9 83 18 126/71 95 I/O 04/02/16 04/02/16 04/02/16 04/03/16 04/03/16 04/03/16 07:00 15:00 23:00 07:00 15:00 23:00 Intake Total 1103 ml 650 ml 2664 ml Output Total 250 ml Balance 1103 ml 650 ml 2414 ml Intake Oral 650 ml 0 ml IV Total 1103 ml 2664 ml Output Urine Total 250 ml # Voids 0 # Bowel Movements 0 0 Result Diagram: 04/03/16 0445 04/03/16 0445 Imaging Last Impressions Cholangiopancreatography MRI 04/02/16 0000 Signed Impressions: Service Date/Time: March 13:18 - CONCLUSION: 1. Widespread metastatic disease throughout the liver most prominent in segment 6 where there is a 7.4 cm lesion. There is a mass in the redd hepatis with stenosis of the right portal vein as well as compression of the biliary ducts worse in the left lobe than on the right. Mario Merida MD Liver Ultrasound 04/01/16 0000 Signed Impressions: Service Date/Time: Friday, April 01, 2016 15:57 - CONCLUSION: 1.Abnormal exam with multiple heterogeneous mixed echogenicity lesions identified within the liver consistent with multiple metastatic lesions. The largest of these are seen within the right lobe. 2.Abnormal wall thickening of the gallbladder which may represent metastatic involvement versus low oncotic pressure. No evidence of ascites on this exam. The pancreas is not visualized well and the previously indicated masses are seen. Milli Burger MD Chest X-Ray 03/31/16 0023 Signed Impressions: Service Date/Time: Thursday, March 31, 2016 00:55 - CONCLUSION: Mild diaphragmatic asymmetry of undetermined chronicity. Dusty Vanessa MD Lower Extremity Ultrasound 03/30/162107 Signed Impressions: Service Date/Time: Wednesday, March 30, 2016 21:38 - CONCLUSION: No DVT of either lower extremity. Dusty Stuart MD Objective Remarks GENERAL: jaundiced, in no apparent distress. CARDIOVASCULAR: Regular rate and regular rhythm without murmurs, gallops, or rubs. RESPIRATORY: Clear to auscultation. Breath sounds equal bilaterally. No wheezes , rales, or rhonchi. GASTROINTESTINAL: Abdomen soft, non-tender, nondistended. Normal, active bowel sounds MUSCULOSKELETAL: Extremities without clubbing, cyanosis, or edema. NEURO: Alert & Oriented x4 to person, place, time, situation. Moves all ext x4 Procedures none Medications and IVs Current Medications Sodium Chloride 1,000 ml @ 999 mls/hr BOLUS ONCE IV Last administered on 03/30 23:26; Start 03/30/16 at 23:15; Stop 03/31/16 at 00:15; Status DC Sodium Chloride 1,000 ml @ 125 mls/hr Q8H IV Last administered on 04/03/16 04 :38; Start 03/30/16 at 23:15 Sodium Chloride (NS 1000 ml Inj) 1,000 ml @ 100 mls/hr Q10H IV ; Start at 00:21; Stop 03/31/16 at 00:25; Status DC IV Flush (NS Flush) 2 ml UNSCH PRN FLUSH FLUSH AFTER USING IV ACCESS; Start at 00:30 IV Flush (NS Flush) 2 ml BID FLUSH Last administered on 04/02/16 10:19; Start 03/31/16 at 09:00 Ondansetron HCl (Zofran Inj) 4 mg Q6H PRN IVP NAUSEA OR VOMITING; Start at 00:30 Enoxaparin Sodium (Lovenox Inj) 40 mg Q24H SQ Last administered on 04/02/16 10 :20; Start 03/31/16 at 09:00; Status Hold Naloxone HCl 0.4 mg 0.4 mg UNSCH PRN IV SEE LABEL COMMENTS; Start 03/31/16 at 00:30 Cefepime HCl 1000 mg/Sodium Chloride 100 ml @ 200 mls/hr NOW ONCE IV Last administered on 03/31/16 01:10; Start 03/31/16 at 00:30; Stop 03/31/16 at 00:59 ; Status DC Cefepime HCl 1000 mg/Sodium Chloride 100 ml @ 200 mls/hr Q12H IV ; Start at 12:00; Stop 03/31/16 at 12:00; Status DC Cefepime HCl/ Sodium Chloride (Maxipime Inj/NS Inj) 100 ml @ 200 mls/hr DAILY@ 00 IV Last administered on 04/02/16 23:18; Start 04/01/16 at 00:00 Potassium Chloride (KCl) 30 meq ONCE ONCE PO Last administered on 03/31/16 14 :29; Start 03/31/16 at 13:30; Stop 03/31/16 at 14:15; Status DC Aspirin (Ecotrin Ec) 81 mg DAILY PO Last administered on 04/02/16 10:18; Start 04/01/16 at 09:00; Status Hold Diltiazem HCl (Cardizem Cd) 300 mg DAILY PO Last administered on 04/02/16 10: 18; Start 03/31/16 at 16:00 Finasteride (Proscar) 5 mg DAILY PO Last administered on 04/02/16 10:18; Start 03/31/16 at 14:15 Pantoprazole Sodium (Protonix) 40 mg DAILY PO Last administered on 04/02/16 10 :18; Start 04/01/16 at 09:00 Ondansetron HCl (Zofran Odt) 8 mg TID PO Last administered on 04/02/16 13:00 ; Start 03/31/16 at 18:00 Oxycodone HCl (Roxicodone) 5 mg Q4HR PRN PO PAIN Last administered on 23:09; Start 03/31/16 at 16:00 Fentanyl (Duragesic 50 Mcg Patch.72 Hr) 1 patch Q3D TD Last administered on 21:24; Start 04/01/16 at 20:00 Miscellaneous Information 1 Q3D TD ; Start 04/04/16 at 20:00 Morphine Sulfate (Morphine Inj) 1 mg Q3H PRN IV PUSH pain; Start 04/01/16 at 23 :15 Lorazepam (Ativan Inj) 0.5 mg ROLL COVERER ONCE IV PUSH ; Start 04/02/16 at 09:30; Stop 04/02/16 at 09:50; Status DC Potassium Chloride (KCl) 20 meq Q12HR PO Last administered on 04/02/16 21:04; Start 04/02/16 at 21:00 Gadodiamide (Omniscan Pf Inj) 15 ml STK-MED ONCE IV Last administered on 13:40; Start 04/02/16 at 13:40; Stop 04/02/16 at 13:41; Status DC A/P Assessment and Plan A/P - pancreatic cancer with biliary obstruction MRCP with widespread metastatic disease throughout the liver and a mass in the redd hepatis with stenosis of the right portal vein as well as compression of the biliary ducts worse in the left lobe than on the right. continue with pain control-IR consulted for PTC. GI and oncology following. -leukocytosis- afebrile but given the biliary duct obstruction, will continue with IV antibiotic. -hypertension; continue cardizem -hypokalemia; will replace and monitor -DVT prophylaxis; on lovenox- on hold for the procedure Licha Schmitz MD Apr 03, 2016 09:12
[2016-04-03] MEDS: FINASTERIDE 5 MG TAB PO SCH (09:46)
[2016-04-03] MEDS: ONDANSETRON ODT 4 MG TAB PO SCH ×3 (09:46→18:00)
[2016-04-03] MEDS: POTASSIUM CHLORIDE 20 MEQ CONTROLLED RELEASE TAB PO SCH ×2 (09:46→20:59)
[2016-04-03] MEDS: DILTIAZEM-CD 300 MG CAP ER PO SCH (09:46)
[2016-04-03] MEDS: PANTOPRAZOLE SOD 40 MG DELAYED RELEASE TAB PO SCH (09:46)
--- NOTE | 2016-04-03 11:40 | HHI.GIFU ---
Subjective Remarks Pt doing well, no complaints. NPO for possible PTC today. Objective Vitals I&O Vital Signs Date Time Temp Pulse Resp B/P Pulse Ox O2 Delivery O2 Flow Rate FiO2 04/03/16 08:00 97.5 83 19 135/87 96 04/03/16 01:00 98.6 83 18 147/75 95 04/02/16 20:00 98.1 80 18 122/73 95 04/02/16 16:00 97.0 79 18 135/69 96 04/02/16 15:43 18 04/02/16 12:00 97.9 83 18 126/71 95 I/O 04/02/16 04/02/16 04/02/16 04/03/16 04/03/16 04/03/16 07:00 15:00 23:00 07:00 15:00 23:00 Intake Total 1103 ml 650 ml 2664 ml Output Total 250 ml Balance 1103 ml 650 ml 2414 ml Intake Oral 650 ml 0 ml IV Total 1103 ml 2664 ml Output Urine Total 250 ml # Voids 0 # Bowel Movements 0 0 Laboratory Laboratory Tests Test 04/03/16 04:45 White Blood Count 20.6 Red Blood Count 2.79 Hemoglobin 8.2 Hematocrit 24.6 Mean Corpuscular Volume 88.1 Mean Corpuscular Hemoglobin 29.4 Mean Corpuscular Hemoglobin 33.4 Concent Red Cell Distribution Width 20.5 Platelet Count 121 Mean Platelet Volume 10.5 Neutrophils (%) (Auto) 73.4 Lymphocytes (%) (Auto) 20.5 Monocytes (%) (Auto) 4.6 Eosinophils (%) (Auto) 0.3 Basophils (%) (Auto) 1.2 Neutrophils # (Auto) 15.1 Lymphocytes # (Auto) 4.2 Monocytes # (Auto) 1.0 Eosinophils # (Auto) 0.1 Basophils # (Auto) 0.2 CBC Comment DIFF FINAL Differential Comment Sodium Level 130 Potassium Level 3.2 Chloride Level 96 Carbon Dioxide Level 24.6 Anion Gap 9 Blood Urea Nitrogen 12 Creatinine 0.68 Estimat Glomerular Filtration 116 Rate Random Glucose 69 Calcium Level 7.2 Protein Corrected Calcium 8.5 Total Bilirubin 11.0 Aspartate Amino Transf 289 (AST/SGOT) Alanine Aminotransferase 326 (ALT/SGPT) Alkaline Phosphatase 1669 Total Protein 4.8 Albumin 1.3 Date/Time Procedure Status Source Growth 03/31/16 14:15 Aerobic Blood Culture - Preliminary Resulted Blood Peripheral NO GROWTH IN 3 DAYS 03/31/16 14:15 Anaerobic Blood Culture - Preliminary Resulted Blood Peripheral NO GROWTH IN 3 DAYS Physical Exam HEENT: Pupils round and reactive to light; normocephalic; atraumatic; mild jaundice. Throat is clear. NECK: Neck is supple, no JVD, no lymphadenopathy. ABDOMEN: Soft, nondistended, mild diffuse tenderness in lower abdomen; no hepatosplenomegaly; bowel sounds are present in all four quadrants. EXTREMITIES: No clubbing, cyanosis, or edema. SKIN: Normal; no rash; jaundice. 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 Assessment and Plan Assessment: (1) Leukocytosis (2) LFT elevation Plan 1. Elevated LFT's, cholestasis - abdominal US and MRCP showing multiple metastatic lesions in the liver causing blockage of proximal intrahepatic ducts, no distal obstruction noted - based on imaging, ERCP would not relieve proximal biliary obstructions - concerns for cholangitis based on significant leucocytosis, improving on cefepime - pending IR consult for possible PTC for decompression 2. metastatic pancreatic cancer - oncology following, follow recs Problem Qualifiers (1) Leukocytosis: Qualified Code: D72.829 - Leukocytosis, unspecified type Jarrod Lujan MD Apr 03, 2016 11:40
[2016-04-03] MEDS ORDERED: MIDAZOLAM HCL 5 MG/5 ML VIAL ONE (13:31)
[2016-04-03] MEDS ORDERED: fentaNYL CITRATE 250 MCG/5 ML AMP ONE (13:31)
[2016-04-03] MEDS ORDERED: THROMBIN (TOPICAL) 5,000 UNIT VIAL ONE (14:18)
[2016-04-03] MEDS ORDERED: MIDAZOLAM HCL 2 MG/2 ML VIAL ONE (15:03)
[2016-04-03] MEDS ORDERED: IOHEXOL 350 MG/ML 100 ML BTL (for RAD DIAG) OTHER ONE (15:30)
--- NOTE | 2016-04-03 17:07 | PD.RAD ---
Post Procedure Progress Note Pre Procedure Diagnosis: (1) LFT elevation (2) Pancreatic cancer metastasized to liver (3) Biliary obstruction Post Procedure Diagnosis: (1) LFT elevation (2) Pancreatic cancer metastasized to liver (3) Biliary obstruction Procedure Date: Apr 03, 2016 Supervising Radiologist: Chan Jasmine Proceduralist/Assist: Aura Rodas, RT(R), Aura Edouard, RT(R)(), Marisa Abreu, RT(R) Anesthesia: Local, Analgesia, Conscious Sedation Plan of Activity Patient to Unit: ROPU Patient Condition: Good See PACS Report for procedural detail/treatment Drainage Procedure Procedure 1 Imaging Guidance: Fluoroscopy, Ultrasound Side: Left (I/E) Procedure Type: Biliary Drainage (Left ducts modified cope loop drainage catheter with extra side holes ) Procedure: Placement [place]: 6 ( [place] loop) Drainage: [place] drainage Fluid Description: Bloody, Bilious Procedure 2 Imaging Guidance: Fluoroscopy Side: Right Procedure Type: Biliary Drainage (I/E) Procedure: Placement [place]ican: 8 Drainage: [place] drainage Fluid Description: Bloody, Bilious Procedure 3 Imaging Guidance: Ultrasound Side: Left Procedure Type: Paracentesis Procedure: Placement Drainage: Suction Fluid Removal (CCs): 300 Fluid Description: Yellow Findings: U/S left ducts showed ascites. Paracentesis performed with removal of 300cc yellow fluid. GB accessed with 3Fr dilator to opacify biliary tree. Right ducts decompressed and did communicate with CBD with central stenosis. No opacification of left ducts. 8Fr I/E placed on right with a modified 6Fr [place] cope loop catheter in left ducts ([place] loop in CBD). 3Fr. dilator removed Chan Jasmine MD Apr 03, 2016 17:07
--- NOTE | 2016-04-03 20:32 | PD.ONC.PN ---
Subjective Subjective Remarks Sleepy, difficult to arouse post procedure anesthesia. Objective Data Date Time Temp Pulse Resp B/P Pulse Ox O2 Delivery O2 Flow Rate FiO2 04/03/16 17:30 85 16 123/69 97 04/03/16 17:00 86 16 137/68 99 04/03/16 16:30 83 16 121/75 98 04/03/16 16:20 90 16 117/62 99 04/03/16 16:05 97.6 94 18 116/72 95 04/03/16 12:00 98.8 88 17 136/64 96 04/03/16 08:00 97.5 83 19 135/87 96 04/03/16 01:00 98.6 83 18 147/75 95 04/03/16 04/03/16 04/03/16 07:00 15:00 23:00 Intake Total 2664 ml 817 ml Output Total 250 ml Balance 2414 ml 817 ml Result Diagram: 04/03/16 0445 04/03/16 0445 Laboratory Results Laboratory Tests Test 04/03/16 04:45 White Blood Count 20.6 TH/MM3 Red Blood Count 2.79 MIL/MM3 Hemoglobin 8.2 GM/DL Hematocrit 24.6 % Mean Corpuscular Volume 88.1 FL Mean Corpuscular Hemoglobin 29.4 PG Mean Corpuscular Hemoglobin 33.4 % Concent Red Cell Distribution Width 20.5 % Platelet Count 121 TH/MM3 Mean Platelet Volume 10.5 FL Neutrophils (%) (Auto) 73.4 % Lymphocytes (%) (Auto) 20.5 % Monocytes (%) (Auto) 4.6 % Eosinophils (%) (Auto) 0.3 % Basophils (%) (Auto) 1.2 % Neutrophils # (Auto) 15.1 TH/MM3 Lymphocytes # (Auto) 4.2 TH/MM3 Monocytes # (Auto) 1.0 TH/MM3 Eosinophils # (Auto) 0.1 TH/MM3 Basophils # (Auto) 0.2 TH/MM3 CBC Comment DIFF FINAL Differential Comment Sodium Level 130 MEQ/L Potassium Level 3.2 MEQ/L Chloride Level 96 MEQ/L Carbon Dioxide Level 24.6 MEQ/L Anion Gap 9 MEQ/L Blood Urea Nitrogen 12 MG/DL Creatinine 0.68 MG/DL Estimat Glomerular Filtration 116 ML/MIN Rate Random Glucose 69 MG/DL Calcium Level 7.2 MG/DL Protein Corrected Calcium 8.5 MG/DL Total Bilirubin 11.0 MG/DL Aspartate Amino Transf 289 U/L (AST/SGOT) Alanine Aminotransferase 326 U/L (ALT/SGPT) Alkaline Phosphatase 1669 U/L Total Protein 4.8 GM/DL Albumin 1.3 GM/DL Administered Medications Medications (Trade) Dose Ordered Sig/Rock Route PRN Reason Start Time Stop Time Status Last Admin Dose Admin Sodium Chloride (NS 1000 ml Inj) 1,000 ml @ 125 mls/hr Q8H IV 03/30/16 23:15 04/03/16 18:44 IV Flush (NS Flush) 2 ml BID FLUSH 03/31/16 09:00 04/02/16 10:19 Enoxaparin Sodium 40 mg 40 mg Q24H SQ 03/31/16 09:00 Hold 04/02/16 10:20 Cefepime HCl/ Sodium Chloride (Maxipime Inj/NS Inj) 100 ml @ 200 mls/hr DAILY@00 IV 04/01/16 00:00 04/02/16 23:18 Aspirin (Ecotrin Ec) 81 mg DAILY PO 04/01/16 09:00 Hold 04/02/16 10:18 Diltiazem HCl (Cardizem Cd) 300 mg DAILY PO 03/31/16 16:00 04/03/16 09:46 Finasteride (Proscar) 5 mg DAILY PO 03/31/16 14:15 04/03/16 09:46 Pantoprazole Sodium (Protonix) 40 mg DAILY PO 04/01/16 09:00 04/03/16 09:46 Ondansetron HCl (Zofran Odt) 8 mg TID PO 03/31/16 18:00 04/03/16 09:46 Oxycodone HCl (Roxicodone) 5 mg Q4HR PRN PO PAIN 03/31/16 16:00 04/02/16 23:09 Fentanyl (Duragesic 50 Mcg Patch.72 Hr) 1 patch Q3D TD 04/01/16 20:00 04/01/16 21:24 Potassium Chloride (KCl) 20 meq Q12HR PO 04/02/16 21:00 04/03/16 09:46 Objective Remarks GENERAL: Still jaundiced, edentulous, alopecia. SKIN: Warm and dry. HEAD: Normocephalic. EYES: No scleral icterus. No injection or drainage. NECK: Supple, trachea midline. No JVD or lymphadenopathy. LYMPHATIC: No adenopathy. CARDIOVASCULAR: Regular rate and rhythm without murmurs. RESPIRATORY: Breath sounds equal bilaterally. No accessory muscle use. GASTROINTESTINAL: Abdomen soft, drains inplace. EXTREMITIES: No cyanosis, or edema. MUSCULOSKELETAL: Adequate muscle tone. Assessment/Plan Problem List: (1) Pancreatic cancer metastasized to liver Status: Acute Plan: 04/03/16. Pending change in chemotherapy. Noted hyperbilirubinemia with bilirubin increase through hospital course. LFT elevated associated with hyperbilirubinemia. GI following, assessed that based on imaging, ERCP would not relieve proximal biliary obstructions Percutaneous drain and paracentesis today by IR. Continue support. Monitor bilirubin. (2) Leukocytosis Status: Acute Plan: 04/03/16. Related to Neulasta vs. inflammation/infection from cholangitis. Follow, pt covered with antibiotics. (3) Dehydration with hyponatremia Status: Resolved (4) Acute kidney injury Status: Resolved Assessment 66-year-old man with with metastatic unresectable pancreatic cancer receiving first-line chemotherapy with Abraxane and gemcitabine with progression. New hyperbilirubinemia/biliary obstruction requiring percutaneous drain. Plan 1. Monitor bilirubin. 2. FU w/ Dr. Gonzalez when DC. 3. IR to manage drain. Problem Qualifiers (1) Leukocytosis: Qualified Code: D72.829 - Leukocytosis, unspecified type Lian Zamora MD Apr 03, 2016 20:32
[2016-04-03] MEDS: CEFEPIME INJ 1,000 MG in SODIUM CHLORIDE 0.9% INJ 100 ML IV SCH (23:37)
[2016-04-04] VITALS: BP 152/73; PULSE 104; RESP 18; TEMP 97.1; O2SAT 96
[2016-04-04 04:00] VITALS: BP 134/76; PULSE 90; RESP 18; TEMP 97.2; O2SAT 96
[2016-04-04 06:38] LABS: BICARBONATE 22.5 MEQ/L (21.0-32.0)
[2016-04-04] MEDS ORDERED: SODIUM CHLOR 0.9% 250 ML INJ 250 ML IV ONE (07:00)
[2016-04-04 07:07] LABS: AUTOMATED NEUTROPHIL # 17.5 TH/MM3 (1.8-7.7); BASOPHIL # 0.1 TH/MM3 (0-0.2); BASOPHIL % 0.6 % (0.0-2.0); EOSINOPHIL % 0.1 % (0.0-4.0); HEMATOCRIT 23.4 % (39.0-51.0); LYMPH % 14.5 % (9.0-44.0); LYMPHOCYTE # 3.2 TH/MM3 (1.0-4.8); MEAN CORPUSCULAR HGB CONC 33.3 % (32.0-36.0); NEUT % 77.8 % (16.0-70.0); RED CELL DISTRIBUTION WIDTH 20.6 % (11.6-17.2); WHITE BLOOD COUNT 22.4 TH/MM3 (4.0-11.0)
[2016-04-04 08:00] VITALS: BP 145/62; PULSE 85; RESP 17; TEMP 95.6; O2SAT 93
[2016-04-04] MEDS: DILTIAZEM-CD 300 MG CAP ER PO SCH (08:03)
[2016-04-04] MEDS: POTASSIUM CHLORIDE 20 MEQ CONTROLLED RELEASE TAB PO SCH (08:04)
[2016-04-04] MEDS: PANTOPRAZOLE SOD 40 MG DELAYED RELEASE TAB PO SCH (08:05)
[2016-04-04] MEDS: FINASTERIDE 5 MG TAB PO SCH (08:05)
[2016-04-04] MEDS: ONDANSETRON ODT 4 MG TAB PO SCH ×3 (08:05→17:44)
[2016-04-04 08:07] LABS: HEMO FLAGS AUTO DIFF
[2016-04-04] MEDS: SODIUM CHLOR 0.9% 1000 ML INJ 1,000 ML IV SCH ×2 (08:08→13:03)
[2016-04-04] MEDS: SODIUM CHLORIDE 0.9% FLUSH 5 ML FLUSH FLUSH SCH ×2 (08:11→21:35)
--- NOTE | 2016-04-04 10:06 | HHI.GIFU ---
Subjective Remarks Pt reports some abdominal discomfort after procedures yesterday. had paracentesis done, as well as two biliary drains placed by IR. Objective Vitals I&O Vital Signs Date Time Temp Pulse Resp B/P Pulse Ox O2 Delivery O2 Flow Rate FiO2 04/04/16 08:00 95.6 85 17 145/62 93 04/04/16 04:00 97.2 90 18 134/76 96 04/04/16 00:00 97.1 104 18 152/73 96 04/03/16 20:00 97.8 96 16 127/64 99 04/03/16 17:30 85 16 123/69 97 04/03/16 17:00 86 16 137/68 99 04/03/16 16:30 83 16 121/75 98 04/03/16 16:20 90 16 117/62 99 04/03/16 16:05 97.6 94 18 116/72 95 04/03/16 12:00 98.8 88 17 136/64 96 I/O 04/03/16 04/03/16 04/03/16 04/04/16 04/04/16 04/04/16 07:00 15:00 23:00 07:00 15:00 23:00 Intake Total 2664 ml 817 ml 1156 ml 1285 ml Output Total 250 ml 0 ml 400 ml 1200 ml Balance 2414 ml 817 ml 1156 ml 885 ml -1200 ml Intake Oral 0 ml 240 ml IV Total 2664 ml 817 ml 1156 ml 1045 ml Output Urine Total 250 ml Drainage Total 0 ml 400 ml 1200 ml # Voids 0 0 # Bowel Movements 0 0 0 Laboratory Laboratory Tests Test 04/04/16 05:45 White Blood Count 22.4 Red Blood Count 2.60 Hemoglobin 7.8 Hematocrit 23.4 Mean Corpuscular Volume 90.0 Mean Corpuscular Hemoglobin 30.0 Mean Corpuscular Hemoglobin 33.3 Concent Red Cell Distribution Width 20.6 Platelet Count 104 Mean Platelet Volume 9.9 Neutrophils (%) (Auto) 77.8 Lymphocytes (%) (Auto) 14.5 Monocytes (%) (Auto) 7.0 Eosinophils (%) (Auto) 0.1 Basophils (%) (Auto) 0.6 Neutrophils # (Auto) 17.5 Lymphocytes # (Auto) 3.2 Monocytes # (Auto) 1.6 Eosinophils # (Auto) 0.0 Basophils # (Auto) 0.1 CBC Comment AUTO DIFF Sodium Level 132 Potassium Level 5.0 Chloride Level 101 Carbon Dioxide Level 22.5 Anion Gap 9 Blood Urea Nitrogen 18 Creatinine 0.83 Estimat Glomerular Filtration 92 Rate Random Glucose 88 Calcium Level 7.7 Total Bilirubin 13.0 Direct Bilirubin 10.0 Indirect Bilirubin 3.0 Aspartate Amino Transf 355 (AST/SGOT) Alanine Aminotransferase 356 (ALT/SGPT) Alkaline Phosphatase 1729 Total Protein 4.9 Albumin 1.2 Date/Time Procedure Status Source Growth 03/31/16 14:15 Aerobic Blood Culture - Preliminary Resulted Blood Peripheral NO GROWTH IN 3 DAYS 03/31/16 14:15 Anaerobic Blood Culture - Preliminary Resulted Blood Peripheral NO GROWTH IN 3 DAYS Physical Exam HEENT: Pupils round and reactive to light; normocephalic; atraumatic; mild jaundice. Throat is clear. NECK: Neck is supple, no JVD, no lymphadenopathy. ABDOMEN: Soft, mild diffuse tenderness abdomen; Biliary drain in right flank with green content, drain in mid abdomen with minimal bloody content EXTREMITIES: No clubbing, cyanosis, or edema. SKIN: Normal; no rash; jaundice. SYSTEMS AUDITOR: No focal deficits; alert and oriented times three. Assessment and Plan Assessment: (1) Leukocytosis (2) LFT elevation Plan 1. Elevated LFT's, cholestasis - abdominal US and MRCP showing multiple metastatic lesions in the liver causing blockage of proximal intrahepatic ducts, no distal obstruction noted - PTC and paracentesis performed yesterday by IR - concerns for cholangitis based on significant leucocytosis, on cefepime 2. metastatic pancreatic cancer - oncology following, follow recs At this time GI will sign off. Please call with questions or concerns. Thank you for this consult. Problem Qualifiers (1) Leukocytosis: Qualified Code: D72.829 - Leukocytosis, unspecified type Jarrod Lujan MD Apr 04, 2016 10:06
--- NOTE | 2016-04-04 10:12 | HHI.PR ---
Subjective Remarks in no distress. afebrile. has mild abdominal pain with no nausea or vomiting. Objective Vitals Vital Signs Date Time Temp Pulse Resp B/P Pulse Ox O2 Delivery O2 Flow Rate FiO2 04/04/16 08:00 95.6 85 17 145/62 93 04/04/16 04:00 97.2 90 18 134/76 96 04/04/16 00:00 97.1 104 18 152/73 96 04/03/16 20:00 97.8 96 16 127/64 99 04/03/16 17:30 85 16 123/69 97 04/03/16 17:00 86 16 137/68 99 04/03/16 16:30 83 16 121/75 98 04/03/16 16:20 90 16 117/62 99 04/03/16 16:05 97.6 94 18 116/72 95 04/03/16 12:00 98.8 88 17 136/64 96 I/O 04/03/16 04/03/16 04/03/16 04/04/16 04/04/16 04/04/16 07:00 15:00 23:00 07:00 15:00 23:00 Intake Total 2664 ml 817 ml 1156 ml 1285 ml Output Total 250 ml 0 ml 400 ml 1200 ml Balance 2414 ml 817 ml 1156 ml 885 ml -1200 ml Intake Oral 0 ml 240 ml IV Total 2664 ml 817 ml 1156 ml 1045 ml Output Urine Total 250 ml Drainage Total 0 ml 400 ml 1200 ml # Voids 0 0 # Bowel Movements 0 0 0 Result Diagram: 04/04/16 0545 04/04/16 0545 Imaging Last Impressions Cholangiopancreatography MRI 04/02/16 0000 Signed Impressions: Service Date/Time: March 13:18 - CONCLUSION: 1. Widespread metastatic disease throughout the liver most prominent in segment 6 where there is a 7.4 cm lesion. There is a mass in the redd hepatis with stenosis of the right portal vein as well as compression of the biliary ducts worse in the left lobe than on the right. Mario Merida MD Liver Ultrasound 04/01/16 0000 Signed Impressions: Service Date/Time: Friday, April 01, 2016 15:57 - CONCLUSION: 1.Abnormal exam with multiple heterogeneous mixed echogenicity lesions identified within the liver consistent with multiple metastatic lesions. The largest of these are seen within the right lobe. 2.Abnormal wall thickening of the gallbladder which may represent metastatic involvement versus low oncotic pressure. No evidence of ascites on this exam. The pancreas is not visualized well and the previously indicated masses are seen. Milli Burger MD Chest X-Ray 03/31/16 0023 Signed Impressions: Service Date/Time: Thursday, March 31, 2016 00:55 - CONCLUSION: Mild diaphragmatic asymmetry of undetermined chronicity. Dusty Vanessa MD Lower Extremity Ultrasound 03/30/162107 Signed Impressions: Service Date/Time: Wednesday, March 30, 2016 21:38 - CONCLUSION: No DVT of either lower extremity. Dusty Stuart MD Objective Remarks GENERAL: jaundiced, in no apparent distress. CARDIOVASCULAR: Regular rate and regular rhythm without murmurs, gallops, or rubs. RESPIRATORY: Clear to auscultation. Breath sounds equal bilaterally. No wheezes , rales, or rhonchi. GASTROINTESTINAL: Abdomen soft, non-tender, nondistended. Normal, active bowel sounds- drain in place. MUSCULOSKELETAL: Extremities without clubbing, cyanosis, or edema. NEURO: Alert & Oriented x4 to person, place, time, situation. Moves all ext x4 Procedures PTC Medications and IVs Current Medications Sodium Chloride 1,000 ml @ 999 mls/hr BOLUS ONCE IV Last administered on 03/30 23:26; Start 03/30/16 at 23:15; Stop 03/31/16 at 00:15; Status DC Sodium Chloride 1,000 ml @ 125 mls/hr Q8H IV Last administered on 04/04/16 08 :08; Start 03/30/16 at 23:15 Sodium Chloride (NS 1000 ml Inj) 1,000 ml @ 100 mls/hr Q10H IV ; Start at 00:21; Stop 03/31/16 at 00:25; Status DC IV Flush (NS Flush) 2 ml UNSCH PRN FLUSH FLUSH AFTER USING IV ACCESS; Start at 00:30 IV Flush (NS Flush) 2 ml BID FLUSH Last administered on 04/02/16 10:19; Start 03/31/16 at 09:00 Ondansetron HCl (Zofran Inj) 4 mg Q6H PRN IVP NAUSEA OR VOMITING; Start at 00:30 Enoxaparin Sodium (Lovenox Inj) 40 mg Q24H SQ Last administered on 04/02/16 10 :20; Start 03/31/16 at 09:00 Naloxone HCl 0.4 mg 0.4 mg UNSCH PRN IV SEE LABEL COMMENTS; Start 03/31/16 at 00:30 Cefepime HCl 1000 mg/Sodium Chloride 100 ml @ 200 mls/hr NOW ONCE IV Last administered on 03/31/16 01:10; Start 03/31/16 at 00:30; Stop 03/31/16 at 00:59 ; Status DC Cefepime HCl 1000 mg/Sodium Chloride 100 ml @ 200 mls/hr Q12H IV ; Start at 12:00; Stop 03/31/16 at 12:00; Status DC Cefepime HCl/ Sodium Chloride (Maxipime Inj/NS Inj) 100 ml @ 200 mls/hr DAILY@ 00 IV Last administered on 04/03/16 23:37; Start 04/01/16 at 00:00 Potassium Chloride (KCl) 30 meq ONCE ONCE PO Last administered on 03/31/16 14 :29; Start 03/31/16 at 13:30; Stop 03/31/16 at 14:15; Status DC Aspirin (Ecotrin Ec) 81 mg DAILY PO Last administered on 04/02/16 10:18; Start 04/01/16 at 09:00; Status Hold Diltiazem HCl (Cardizem Cd) 300 mg DAILY PO Last administered on 04/04/16 08: 03; Start 03/31/16 at 16:00 Finasteride (Proscar) 5 mg DAILY PO Last administered on 04/04/16 08:05; Start 03/31/16 at 14:15 Pantoprazole Sodium (Protonix) 40 mg DAILY PO Last administered on 04/04/16 08 :05; Start 04/01/16 at 09:00 Ondansetron HCl (Zofran Odt) 8 mg TID PO Last administered on 04/03/16 09:46 ; Start 03/31/16 at 18:00 Oxycodone HCl (Roxicodone) 5 mg Q4HR PRN PO PAIN Last administered on 08:06; Start 03/31/16 at 16:00 Fentanyl (Duragesic 50 Mcg Patch.72 Hr) 1 patch Q3D TD Last administered on 21:24; Start 04/01/16 at 20:00 Miscellaneous Information 1 Q3D TD ; Start 04/04/16 at 20:00 Morphine Sulfate (Morphine Inj) 1 mg Q3H PRN IV PUSH pain; Start 04/01/16 at 23 :15 Lorazepam (Ativan Inj) 0.5 mg RAILROAD OPERATING ENGINEER ONCE IV PUSH ; Start 04/02/16 at 09:30; Stop 04/02/16 at 09:50; Status DC Potassium Chloride (KCl) 20 meq Q12HR PO Last administered on 04/03/16 20:59; Start 04/02/16 at 21:00 Gadodiamide (Omniscan Pf Inj) 15 ml STK-MED ONCE IV Last administered on 13:40; Start 04/02/16 at 13:40; Stop 04/02/16 at 13:41; Status DC Midazolam HCl (Versed Inj) 5 mg STK-MED ONCE .ROUTE Last administered on 13:31; Start 04/03/16 at 13:31; Stop 04/03/16 at 13:32; Status DC Fentanyl Citrate (fentaNYL INJ) 250 mcg STK-MED ONCE .ROUTE Last administered on 04/03/16 13:31; Start 04/03/16 at 13:31; Stop 04/03/16 at 13:32; Status DC Thrombin (Thrombin Top Soln) 5,000 units STK-MED ONCE .ROUTE Last administered on 04/03/16 14:18; Start 04/03/16 at 14:18; Stop 04/03/16 at 14:19; Status DC Fentanyl Citrate (fentaNYL INJ) 100 mcg STK-MED ONCE .ROUTE Last administered on 04/03/16 15:03; Start 04/03/16 at 15:03; Stop 04/03/16 at 15:04; Status DC Midazolam HCl (Versed Inj) 2 mg STK-MED ONCE .ROUTE Last administered on 15:03; Start 04/03/16 at 15:03; Stop 04/03/16 at 15:04; Status DC Iohexol 60 ml 60 ml STK-MED ONCE OTHER Last administered on 04/03/16t 15:30; Start 04/03/16 at 15:30; Stop 04/03/16 at 16:10; Status DC Sodium Chloride (NS 250 ml Inj) 250 ml @ 250 mls/hr BOLUS ONCE IV Last administered on 04/04/16 07:00; Start 04/04/16 at 07:00; Stop 04/04/16 at 07:59 ; Status DC A/P Assessment and Plan A/P - pancreatic cancer with biliary obstruction MRCP with widespread metastatic disease throughout the liver and a mass in the redd hepatis with stenosis of the right portal vein as well as compression of the biliary ducts worse in the left lobe than on the right. IR consulted- s/p PTC continue with pain control- GI and oncology following. -leukocytosis- afebrile but given the biliary duct obstruction, will continue with IV antibiotic. -anemia of chronic disease- will monitor H/H - oncology following. -hypertension; continue cardizem -hypokalemia; replaced -DVT prophylaxis; Licha Trejo MD Apr 04, 2016 10:12
--- NOTE | 2016-04-04 11:45 | PD.ONC.PN ---
Subjective Subjective Remarks Afebrile overnight. Pt states he is doing OK, unsure if his pain is better since getting the drain placed. No nausea. He has no SOB. He states he feels weak when he gets OOB. Objective Data Date Time Temp Pulse Resp B/P Pulse Ox O2 Delivery O2 Flow Rate FiO2 04/04/16 08:00 95.6 85 17 145/62 93 04/04/16 04:00 97.2 90 18 134/76 96 04/04/16 00:00 97.1 104 18 152/73 96 04/03/16 20:00 97.8 96 16 127/64 99 04/03/16 17:30 85 16 123/69 97 04/03/16 17:00 86 16 137/68 99 04/03/16 16:30 83 16 121/75 98 04/03/16 16:20 90 16 117/62 99 04/03/16 16:05 97.6 94 18 116/72 95 04/03/16 12:00 98.8 88 17 136/64 96 04/04/16 04/04/16 04/04/16 07:00 15:00 23:00 Intake Total 1285 ml Output Total 400 ml 1200 ml Balance 885 ml -1200 ml Result Diagram: 04/04/16 1110 04/04/16 0545 Laboratory Results Laboratory Tests Test 04/04/16 04/04/16 05:45 11:10 Sodium Level 132 MEQ/L Potassium Level 5.0 MEQ/L Chloride Level 101 MEQ/L Carbon Dioxide Level 22.5 MEQ/L Anion Gap 9 MEQ/L Blood Urea Nitrogen 18 MG/DL Creatinine 0.83 MG/DL Estimat Glomerular Filtration 92 ML/MIN Rate Random Glucose 88 MG/DL Calcium Level 7.7 MG/DL Total Bilirubin 13.0 MG/DL Direct Bilirubin 10.0 MG/DL Indirect Bilirubin 3.0 MG/DL Aspartate Amino Transf 355 U/L (AST/SGOT) Alanine Aminotransferase 356 U/L (ALT/SGPT) Alkaline Phosphatase 1729 U/L Total Protein 4.9 GM/DL Albumin 1.2 GM/DL White Blood Count 22.4 TH/MM3 Red Blood Count 2.60 MIL/MM3 Hemoglobin 7.8 GM/DL Hematocrit 23.4 % Mean Corpuscular Volume 90.0 FL Mean Corpuscular Hemoglobin 30.0 PG Mean Corpuscular Hemoglobin 33.3 % Concent Red Cell Distribution Width 20.6 % Platelet Count 104 TH/MM3 Mean Platelet Volume 9.9 FL Neutrophils (%) (Auto) 77.8 % Lymphocytes (%) (Auto) 14.5 % Monocytes (%) (Auto) 7.0 % Eosinophils (%) (Auto) 0.1 % Basophils (%) (Auto) 0.6 % Neutrophils # (Auto) 17.5 TH/MM3 Lymphocytes # (Auto) 3.2 TH/MM3 Monocytes # (Auto) 1.6 TH/MM3 Eosinophils # (Auto) 0.0 TH/MM3 Basophils # (Auto) 0.1 TH/MM3 CBC Comment AUTO DIFF Administered Medications Medications (Trade) Dose Ordered Sig/Rock Route PRN Reason Start Time Stop Time Status Last Admin Dose Admin Sodium Chloride (NS 1000 ml Inj) 1,000 ml @ 125 mls/hr Q8H IV 03/30/16 23:15 04/04/16 08:08 IV Flush (NS Flush) 2 ml BID FLUSH 03/31/16 09:00 04/02/16 10:19 Enoxaparin Sodium 40 mg 40 mg Q24H SQ 03/31/16 09:00 04/02/16 10:20 Cefepime HCl/ Sodium Chloride (Maxipime Inj/NS Inj) 100 ml @ 200 mls/hr DAILY@00 IV 04/01/16 00:00 04/03/16 23:37 Aspirin (Ecotrin Ec) 81 mg DAILY PO 04/01/16 09:00 Hold 04/02/16 10:18 Diltiazem HCl (Cardizem Cd) 300 mg DAILY PO 03/31/16 16:00 04/04/16 08:03 Finasteride (Proscar) 5 mg DAILY PO 03/31/16 14:15 04/04/16 08:05 Pantoprazole Sodium (Protonix) 40 mg DAILY PO 04/01/16 09:00 04/04/16 08:05 Ondansetron HCl (Zofran Odt) 8 mg TID PO 03/31/16 18:00 04/03/16 09:46 Oxycodone HCl (Roxicodone) 5 mg Q4HR PRN PO PAIN 03/31/16 16:00 04/04/16 08:06 Fentanyl (Duragesic 50 Mcg Patch.72 Hr) 1 patch Q3D TD 04/01/16 20:00 04/01/16 21:24 Potassium Chloride (KCl) 20 meq Q12HR PO 04/02/16 21:00 Hold 04/03/16 20:59 Objective Remarks GENERAL: +Jaundice, alopecia. SKIN: Warm and dry. HEAD: Normocephalic. EYES: +Scleral icterus. No injection or drainage. NECK: Supple, trachea midline. No JVD or lymphadenopathy. LYMPHATIC: No adenopathy. CARDIOVASCULAR: Regular rate and rhythm without murmurs. RESPIRATORY: Breath sounds equal bilaterally. No accessory muscle use. GASTROINTESTINAL: Abdomen soft, drain in place. EXTREMITIES: No cyanosis, or edema. MUSCULOSKELETAL: Adequate muscle tone. Assessment/Plan Problem List: (1) Pancreatic cancer metastasized to liver Status: Acute Plan: 04/04/16: Bilirubin remains elevated. R abdomen drain in place with 1150ml 's output in last 24 hours. 04/03/16. Pending change in chemotherapy. Noted hyperbilirubinemia with bilirubin increase through hospital course. LFT elevated associated with hyperbilirubinemia. GI following, assessed that based on imaging, ERCP would not relieve proximal biliary obstructions Percutaneous drain and paracentesis today by IR. Continue support. Monitor bilirubin. (2) Leukocytosis Status: Acute Plan: -- Related to Neulasta vs. inflammation/infection from cholangitis. -- Follow, pt covered with antibiotics. (3) Dehydration with hyponatremia Status: Resolved (4) Acute kidney injury Status: Resolved Assessment 66-year-old man with with metastatic unresectable pancreatic cancer receiving first-line chemotherapy with Abraxane and gemcitabine with progression. New hyperbilirubinemia/biliary obstruction requiring percutaneous drain. Plan 1. Continue to monitor bilirubin 2. PT ordered to eval and treat. 3. Pt will followup with Dr. Gonzalez as an outpatient. 4. Supportive care. Attending Statement The exam, history, and the medical decision-making described in the above note were completed with the assistance of the mid-level provider. I reviewed and agree with the findings presented. I attest that I had a [id number] encounter with the patient on the same day, and personally performed and documented my assessment and findings in the medical record. Problem Qualifiers (1) Leukocytosis: Qualified Code: D72.829 - Leukocytosis, unspecified type Aide Loera Apr 04, 2016 11:45 Nilo Dumont MD Apr 05, 2016 00:57
[2016-04-04 12:00] VITALS: BP 119/74; PULSE 76; RESP 17; TEMP 96.9; O2SAT 93
[2016-04-04 12:14] LABS: PLATELET ESTIMATE SMEAR NORMAL (NORMAL); PLATELET MORPHOLOGY CLUMPED (NORMAL); SCAN/DIFF AUTO DIFF CONFIRMED
[2016-04-04] MEDS: ENOXAPARIN SODIUM 40 MG/0.4 ML SYRINGE SQ SCH (13:02)
[2016-04-04] MEDS: DOCUSATE SODIUM 50 MG/SENNA 8.6 MG TAB PO SCH (13:03)
[2016-04-04 16:00] VITALS: BP 122/57; PULSE 79; RESP 17; TEMP 96.6; O2SAT 96
--- NOTE | 2016-04-04 19:16 | RADRPT ---
EXAM DATE/TIME: 04/03/2016 13:21 [facility] COMPARISON: PERC TRANSHEP DIL/WILLI DCT STRI, April 03, 2016, 13:21. INDICATIONS : Patient with pancreatic cancer with metastases to the liver has biliary obstructio n.. MEDICAL HISTORY : Pancreatic cancer with metastases to the liver and currently on palliative ni motherapy. HTN Hernia SURGICAL HISTORY : Appendectomy Right lung resection ENCOUNTER: Initial ACUITY: 3 days PAIN SCORE: 4/10 LOCATION: upper abdomen FLUORO TIME: 30.8 minutes SEDATION TIME: 120 minutes CONTRAST: 60 cc Omnipaque (iohexol) 350 MEDICATION(S): 1.) 6 mg midazolam (Versed) IV 2.) 300 mcg fentanyl (Sublimaze) IV DEVICE(S): 1.) 8 [place] internal/external biliary drain PROCEDURE : 1. temporary cholecystostomy tube placement with ultrasound guidance to facilitate PTHD. 2. Percutaneous transhepatic drainage of the right ducts with an internal/external drain. 3. Conscious sedation with continuous EKG and Oximetry monitoring. The risks, benefits and alternatives to the procedure were explained and verbal and written consent w as obtained. The site was prepped in sterile fashion. Full sterile technique was used, including ca p, mask, sterile gloves and gown and a large sterile sheet. Hand hygiene and 2% chlorhexidine prep w as utilized per protocol for cutaneous antisepsis with appropriate dry time for site. The skin and s ubcutaneous tissues were infiltrated with local anesthetic solution. The right flank was accessed with a 22-gauge Chiba. This was advanced multiple times through the hep atic parenchyma but I was unable to opacify the biliary ducts. Therefore, the gallbladder was locali zed sonographically. The gallbladder was completely decompressed with a markedly thickened wall and apparently some debris within the gallbladder lumen possibly representing sludge. The 22-gauge Chiba needle was then advanced into the gallbladder lumen through which an .018 wire was placed. Over the .018 wire, a 2 [place] dilator was used to opacify the gallbladder. The gallbladder was distended wi th positive contrast and water. This opacified the cystic duct and portions of the common bile duct. A small amount of contrast was identified in the right hepatic ducts with opacification of the post erolateral branch which was now localized fluoroscopically. The opacified duct was then targeted with the 22-gauge Chiba needle. The duct was successfully acces sed and an .018 wire passed freely into the common hepatic duct with some holdup in the central porti ons of the right hepatic duct. Contrast injection showed the right branches to be quite diminutive a s seen on the previous MRCP. 3/4 dilator was placed over the .018 wire to facilitate placement of a Stiff glidewire. Over the Stiff glidewire, the 8 [place] internal/external drain was placed. The Athletic [employer] Custodian e loop was formed and positioned with confirmed positive fluoroscopically. Conscious sedation was performed with the prescribed dosages and duration as above. EKG and oximetry remained stable throughout the procedure. CONCLUSION: 1. Patient has moderate stenosis in the central portion of the right ducts and an apparent high-grad e stenosis/occlusion in the central portion of the left ducts. Please see the separate report on the left ducts for further characterization. 2. Successful placement of an internal/external drain on the right. Chan Jasmine MD on April 04, 2016 at 17:48 Board Certified Radiologist. This report was verified electronically.
--- NOTE | 2016-04-04 19:24 | RADRPT ---
EXAM DATE/TIME: 04/03/2016 13:21 [facility] COMPARISON: No previous studies available for comparison. INDICATIONS : Patient with pancreatic cancer with metastases to the liver has biliary obstructio n. MEDICAL HISTORY : Pancreatic cancer with metastases to the liver and currently on palliative ni motherapy. HTN Hernia SURGICAL HISTORY : Appendectomy Right lung resection ENCOUNTER: Initial ACUITY: 3 days PAIN SCORE: 4/10 LOCATION: upper abdomen FLUORO TIME: 30.8 minutes SEDATION TIME: 120 minutes CONTRAST: 60 cc Omnipaque (iohexol) 350 MEDICATION(S): 1.) 6 mg midazolam (Versed) IV 2.) 300 mcg fentanyl (Sublimaze) IV DEVICE(S): 1.) 6 [employer] Adrianne All purpose drain 2.) Nursing Consultant MAINTENANCE REPRESENTATIVE balloon 4.0mm X40mm PROCEDURE : 1. PTHD, left ducts 2. Ultrasound guided paracentesis to facilitate left hepatic drainage. 2. Conscious sedation with continuous EKG and Oximetry monitoring. The risks, benefits and alternatives to the procedure were explained and verbal and written consent w as obtained. The site was prepped in sterile fashion. Full sterile technique was used, including ca p, mask, sterile gloves and gown and a large sterile sheet. Hand hygiene and 2% chlorhexidine prep w as utilized per protocol for cutaneous antisepsis with appropriate dry time for site. The skin and s ubcutaneous tissues were infiltrated with local anesthetic solution. Prior to intervention, I reviewed the patient's MRCP which demonstrated moderate dilation of the left hepatic ducts and diminutive right ducts. Utilizing ultrasound guidance, mildly dilated left ducts w ere identified in the left hepatic lobe. However, there was also regional ascites. Therefore, a small [place] loop catheter was sonographically guided into the ascites and approximately 300 cc of straw-col ored fluid removed to facilitate tube placement. First access with the 21-gauge micropuncture needle using ultrasound guidance appeared to enter a por carolyn radicle with some bleeding. Because of the regional ascites, I did embolize this tract with a sm all amount of Gelfoam and thrombin slurry. Second access did opacify some dilated ducts and I was ab le to pass a wire centrally. However, I could not pass the wire into the common hepatic duct. Contra st injection showed occlusion of the central ducts. With a catheter and wire, I was able to manipula te down into the common hepatic duct. Contrast injection demonstrated a diminutive common hepatic du ct with a narrow communication to the right hepatic tree. As the right ducts were accessed previousl y (please see that report), I was unable to advance a second catheter wire combination through the am ruddy. Therefore, the occluded segment of the central left ducts were balloon angioplastied to 4 mm to facilitate placement of a modified 6 [place] loop catheter with extra side holes cut proximall y to provide some drainage of the dilated left hepatic ducts. Conscious sedation was performed with the prescribed dosages and duration as above. EKG and oximetry remained stable throughout the procedure. CONCLUSION: 1. Extensive disease throughout the liver with central occlusion of the left hepatic ducts. 2. As the right internal/external drain was placed previously, I was unable to pass a second cathete r through the ampulla and a [place] loop catheter was placed into the distal common bile duct with extra side holes cut more centrally to facilitate drainage of the left ducts. Chan Jasmine MD on April 04, 2016 at 17:37 Board Certified Radiologist. This report was verified electronically.
[2016-04-04 20:00] VITALS: BP 124/63; PULSE 70; RESP 16; TEMP 96.8; O2SAT 95
[2016-04-04] MEDS ORDERED: REMOVE OLD DURAGESIC (FENTANYL) PATCH TD SCH (20:00)
[2016-04-04] MEDS: fentaNYL 50 MCG/HR PATCH TD SCH (21:35)
[2016-04-05] VITALS: BP 138/61; PULSE 80; RESP 18; TEMP 97.2; O2SAT 97
[2016-04-05] MEDS: CEFEPIME INJ 1,000 MG in SODIUM CHLORIDE 0.9% INJ 100 ML IV SCH (00:46)
[2016-04-05] MEDS: SODIUM CHLOR 0.9% 1000 ML INJ 1,000 ML IV SCH ×3 (00:47→15:15)
[2016-04-05 05:11] LABS: BICARBONATE 20.9 MEQ/L (21.0-32.0); CALCIUM-PROTEIN CORRECTED 8.4 MG/DL (8.5-10.1); POTASSIUM 3.5 MEQ/L (3.5-5.1); TOTAL BILIRUBIN ADULT 12.2 MG/DL (0.2-1.0)
[2016-04-05 08:00] VITALS: BP 131/57; PULSE 84; RESP 20; TEMP 96.4; O2SAT 94
--- NOTE | 2016-04-05 08:51 | HHI.PR ---
Subjective Remarks resting comfortably with no distress. pain is controlled. no nausea. afebrile. no new complaints. Objective Vitals Vital Signs Date Time Temp Pulse Resp B/P Pulse Ox O2 Delivery O2 Flow Rate FiO2 04/05/16 00:00 97.2 80 18 138/61 97 04/04/16 22:35 16 04/04/16 20:00 96.8 70 16 124/63 95 04/04/16 16:00 96.6 79 17 122/57 96 04/04/16 12:00 96.9 76 17 119/74 93 I/O 04/04/16 04/04/16 04/04/16 04/05/16 04/05/16 04/05/16 07:00 15:00 23:00 07:00 15:00 23:00 Intake Total 1285 ml 240 ml 4268 ml Output Total 400 ml 2000 ml 670 ml 810 ml Balance 885 ml -1760 ml 3598 ml -810 ml Intake Oral 240 ml 240 ml 240 ml IV Total 1045 ml 4028 ml Output Urine Total 800 ml 670 ml 810 ml Drainage Total 400 ml 1200 ml Bladder Scan Volume Amount 40 ml 932 ml # Voids 0 1 # Bowel Movements 0 0 0 Result Diagram: 04/04/16 1110 04/05/16 0430 Imaging Last Impressions Cholangiopancreatography MRI 04/02/16 0000 Signed Impressions: Service Date/Time: March 13:18 - CONCLUSION: 1. Widespread metastatic disease throughout the liver most prominent in segment 6 where there is a 7.4 cm lesion. There is a mass in the redd hepatis with stenosis of the right portal vein as well as compression of the biliary ducts worse in the left lobe than on the right. Mario Merida MD Liver Ultrasound 04/01/16 0000 Signed Impressions: Service Date/Time: Friday, April 01, 2016 15:57 - CONCLUSION: 1.Abnormal exam with multiple heterogeneous mixed echogenicity lesions identified within the liver consistent with multiple metastatic lesions. The largest of these are seen within the right lobe. 2.Abnormal wall thickening of the gallbladder which may represent metastatic involvement versus low oncotic pressure. No evidence of ascites on this exam. The pancreas is not visualized well and the previously indicated masses are seen. Milli Burger MD Chest X-Ray 03/31/16 0023 Signed Impressions: Service Date/Time: Thursday, March 31, 2016 00:55 - CONCLUSION: Mild diaphragmatic asymmetry of undetermined chronicity. Dusty Vanessa MD Lower Extremity Ultrasound 03/30/162107 Signed Impressions: Service Date/Time: Wednesday, March 30, 2016 21:38 - CONCLUSION: No DVT of either lower extremity. Dusty Stuart MD Objective Remarks GENERAL: jaundiced, in no apparent distress. CARDIOVASCULAR: Regular rate and regular rhythm without murmurs, gallops, or rubs. RESPIRATORY: Clear to auscultation. Breath sounds equal bilaterally. No wheezes , rales, or rhonchi. GASTROINTESTINAL: Abdomen soft, non-tender, nondistended. Normal, active bowel sounds- drains in place. MUSCULOSKELETAL: Extremities without clubbing, cyanosis, or edema. NEURO: Alert & Oriented x4 to person, place, time, situation. Moves all ext x4 Procedures cholecystostomy tube placement/ percutaneous transhepatic drainage of the right ducts. Medications and IVs Current Medications Sodium Chloride 1,000 ml @ 999 mls/hr BOLUS ONCE IV Last administered on 03/30 23:26; Start 03/30/16 at 23:15; Stop 03/31/16 at 00:15; Status DC Sodium Chloride 1,000 ml @ 125 mls/hr Q8H IV Last administered on 04/05/16 00 :47; Start 03/30/16 at 23:15 Sodium Chloride (NS 1000 ml Inj) 1,000 ml @ 100 mls/hr Q10H IV ; Start at 00:21; Stop 03/31/16 at 00:25; Status DC IV Flush (NS Flush) 2 ml UNSCH PRN FLUSH FLUSH AFTER USING IV ACCESS; Start at 00:30 IV Flush (NS Flush) 2 ml BID FLUSH Last administered on 04/04/16 21:35; Start 03/31/16 at 09:00 Ondansetron HCl (Zofran Inj) 4 mg Q6H PRN IVP NAUSEA OR VOMITING; Start at 00:30 Enoxaparin Sodium (Lovenox Inj) 40 mg Q24H SQ Last administered on 04/04/16 13 :02; Start 03/31/16 at 09:00 Naloxone HCl 0.4 mg 0.4 mg UNSCH PRN IV SEE LABEL COMMENTS; Start 03/31/16 at 00:30 Cefepime HCl 1000 mg/Sodium Chloride 100 ml @ 200 mls/hr NOW ONCE IV Last administered on 03/31/16 01:10; Start 03/31/16 at 00:30; Stop 03/31/16 at 00:59 ; Status DC Cefepime HCl 1000 mg/Sodium Chloride 100 ml @ 200 mls/hr Q12H IV ; Start at 12:00; Stop 03/31/16 at 12:00; Status DC Cefepime HCl/ Sodium Chloride (Maxipime Inj/NS Inj) 100 ml @ 200 mls/hr DAILY@ 00 IV Last administered on 04/05/16 00:46; Start 04/01/16 at 00:00 Potassium Chloride (KCl) 30 meq ONCE ONCE PO Last administered on 03/31/16 14 :29; Start 03/31/16 at 13:30; Stop 03/31/16 at 14:15; Status DC Aspirin (Ecotrin Ec) 81 mg DAILY PO Last administered on 04/02/16 10:18; Start 04/01/16 at 09:00; Status Hold Diltiazem HCl (Cardizem Cd) 300 mg DAILY PO Last administered on 04/04/16 08: 03; Start 03/31/16 at 16:00 Finasteride (Proscar) 5 mg DAILY PO Last administered on 04/04/16 08:05; Start 03/31/16 at 14:15 Pantoprazole Sodium (Protonix) 40 mg DAILY PO Last administered on 04/04/16 08 :05; Start 04/01/16 at 09:00 Ondansetron HCl (Zofran Odt) 8 mg TID PO Last administered on 04/03/16 09:46 ; Start 03/31/16 at 18:00 Oxycodone HCl (Roxicodone) 5 mg Q4HR PRN PO PAIN Last administered on 08:06; Start 03/31/16 at 16:00 Fentanyl (Duragesic 50 Mcg Patch.72 Hr) 1 patch Q3D TD Last administered on 21:35; Start 04/01/16 at 20:00 Miscellaneous Information 1 Q3D TD ; Start 04/04/16 at 20:00 Morphine Sulfate (Morphine Inj) 1 mg Q3H PRN IV PUSH pain; Start 04/01/16 at 23 :15 Lorazepam (Ativan Inj) 0.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 PUSH ; Start 04/02/16 at 09:30; Stop 04/02/16 at 09:50; Status DC Potassium Chloride (KCl) 20 meq Q12HR PO Last administered on 04/03/16 20:59; Start 04/02/16 at 21:00; Status Hold Gadodiamide (Omniscan Pf Inj) 15 ml STK-MED ONCE IV Last administered on 13:40; Start 04/02/16 at 13:40; Stop 04/02/16 at 13:41; Status DC Midazolam HCl (Versed Inj) 5 mg STK-MED ONCE .ROUTE Last administered on 13:31; Start 04/03/16 at 13:31; Stop 04/03/16 at 13:32; Status DC Fentanyl Citrate (fentaNYL INJ) 250 mcg STK-MED ONCE .ROUTE Last administered on 04/03/16 13:31; Start 04/03/16 at 13:31; Stop 04/03/16 at 13:32; Status DC Thrombin (Thrombin Top Soln) 5,000 units STK-MED ONCE .ROUTE Last administered on 04/03/16 14:18; Start 04/03/16 at 14:18; Stop 04/03/16 at 14:19; Status DC Fentanyl Citrate (fentaNYL INJ) 100 mcg STK-MED ONCE .ROUTE Last administered on 04/03/16 15:03; Start 04/03/16 at 15:03; Stop 04/03/16 at 15:04; Status DC Midazolam HCl (Versed Inj) 2 mg STK-MED ONCE .ROUTE Last administered on 15:03; Start 04/03/16 at 15:03; Stop 04/03/16 at 15:04; Status DC Iohexol 60 ml 60 ml STK-MED ONCE OTHER Last administered on 04/03/16 15:30; Start 04/03/16 at 15:30; Stop 04/03/16 at 16:10; Status DC Sodium Chloride (NS 250 ml Inj) 250 ml @ 250 mls/hr BOLUS ONCE IV Last administered on 04/04/16 07:00; Start 04/04/16 at 07:00; Stop 04/04/16 at 07:59 ; Status DC Senna/Docusate Sodium (Irasema-Colace) 1 tab DAILY PO Last administered on 13:03; Start 04/04/16 at 11:30 A/P Assessment and Plan A/P - pancreatic cancer with biliary obstruction MRCP with widespread metastatic disease throughout the liver and a mass in the redd hepatis with stenosis of the right portal vein as well as compression of the biliary ducts worse in the left lobe than on the right. IR consulted- s/p PTC- management per IR. continue with pain control- GI and oncology following. -leukocytosis- afebrile but given the biliary duct obstruction, will continue with IV antibiotic. -anemia of chronic disease- will monitor H/H - oncology following. -hypertension; continue cardizem -hypokalemia; replaced -DVT prophylaxis; Licha Trejo MD Apr 05, 2016 08:51
[2016-04-05] MEDS: ONDANSETRON ODT 4 MG TAB PO SCH ×3 (09:00→18:00)
[2016-04-05] MEDS: ENOXAPARIN SODIUM 40 MG/0.4 ML SYRINGE SQ SCH ×2 (09:00→09:21)
[2016-04-05] MEDS: FINASTERIDE 5 MG TAB PO SCH (09:19)
[2016-04-05] MEDS: DOCUSATE SODIUM 50 MG/SENNA 8.6 MG TAB PO SCH (09:20)
[2016-04-05] MEDS: DILTIAZEM-CD 300 MG CAP ER PO SCH (09:20)
[2016-04-05] MEDS: SODIUM CHLORIDE 0.9% FLUSH 5 ML FLUSH FLUSH SCH ×2 (09:20→20:46)
[2016-04-05] MEDS: PANTOPRAZOLE SOD 40 MG DELAYED RELEASE TAB PO SCH (09:31)
[2016-04-05 12:00] VITALS: BP 127/65; PULSE 78; RESP 20; TEMP 97.1; O2SAT 95
--- NOTE | 2016-04-05 12:32 | RADRPT ---
EXAM DATE/TIME: 04/05/2016 10:47 [place] COMPARISON: No previous studies available for comparison. EXTERNAL COMPARISON : [facility], CT ABDOMEN & PELVIS W CONTRAST, February 20, 2016. December 04, 2015. INDICATIONS : Ascites. MEDICAL HISTORY : Carcinoma, pancreas. Metastatic, liver. Hypercholesterolemia. HTN. GERD. Enlarged prostate. Arthriti s. SURGICAL HISTORY : Appendectomy. Inguinal hernia repair. Right lung tumor removed. Rotator cuff surgery. Hammer toe an d thumb surgery. Chemotherapy. Blood transfusion. ENCOUNTER: Subsequent ACUITY: 2 days PAIN SCORE: 2/10 LOCATION: Bilateral abdomen. AREA EVALUATED: Abdominal quadrants. FINDINGS: Imaging of the abdomen and pelvis was performed to evaluate for ascites. There is trace perihepatic f ree fluid. Liver echotexture is coarse. There is a small volume of free fluid in the right lower quad rant. The other quadrants demonstrate no significant fluid. CONCLUSION: Trace perihepatic free fluid and a small volume of free fluid in the right lower quadrant. Dusty Lake MD on April 05, 2016 at 12:30 Board Certified Radiologist. This report was verified electronically.
[2016-04-05] MEDS ORDERED: VANCOMYCIN HCL 1000 MG VIAL ONE (14:17)
[2016-04-05] MEDS ORDERED: fentaNYL CITRATE 250 MCG/5 ML AMP ONE (14:17)
[2016-04-05] MEDS ORDERED: LORazepam 2 MG/ML VIAL ONE (14:17)
[2016-04-05 16:00] VITALS: BP 144/70; PULSE 85; RESP 20; TEMP 95.3; O2SAT 94
--- NOTE | 2016-04-05 16:10 | PD.RAD ---
Post Procedure Progress Note Pre Procedure Diagnosis: (1) Biliary obstruction (2) Pancreatic cancer metastasized to liver (3) Ascites Post Procedure Diagnosis: (1) Ascites (2) Biliary obstruction (3) Pancreatic cancer metastasized to liver Procedure Date: Apr 05, 2016 Supervising Radiologist: Chan Jasmine Proceduralist/Assist: Aura Edouard, RT(R)(), Gemini Brewster RT(R)() Anesthesia: Local, Analgesia Plan of Activity Patient to Unit: Nursing Unit Patient Condition: Fair See PACS Report for procedural detail/treatment Drainage Procedure Procedure 1 Imaging Guidance: Fluoroscopy Procedure Type: Biliary Drainage (Conversion of percutaneous drains to internal metalic stents, left and right) Procedure: Placement Procedure 2 Imaging Guidance: Fluoroscopy Procedure Type: Paracentesis Procedure: Placement Hebrew: 8 Fluid Description: Clear, Bloody Findings: 6mm x 8cm stents placed bilaterally. Additional Detail: Used existing right biliary access to place ascites drain Chan Jasmine MD Apr 05, 2016 16:10
[2016-04-05] MEDS ORDERED: IOHEXOL 350 MG/ML 50 ML BTL (for RAD DIAG) ONE (16:13)
[2016-04-05 17:50] VITALS: BP 139/68; PULSE 84; RESP 20; TEMP 97.6; O2SAT 95
[2016-04-06] VITALS (7 sets, daily range): BP systolic 118–149; BP diastolic 56–97; PULSE 69–87; RESP 16–20; TEMP 96.5–97.7; O2SAT 93–98
[2016-04-06] MEDS: SODIUM CHLOR 0.9% 1000 ML INJ 1,000 ML IV SCH ×4 (01:11→21:41)
[2016-04-06] MEDS: CEFEPIME INJ 1,000 MG in SODIUM CHLORIDE 0.9% INJ 100 ML IV SCH (01:11)
[2016-04-06 06:38] LABS: BASOPHIL % 0.2 % (0.0-2.0); EOSINOPHIL % 0.3 % (0.0-4.0); LYMPH % 12.1 % (9.0-44.0); LYMPHOCYTE # 1.8 TH/MM3 (1.0-4.8); MEAN CORPUSCULAR HEMOGLOBIN 30.8 PG (27.0-34.0); MEAN CORPUSCULAR HGB CONC 34.3 % (32.0-36.0); MONO % 6.4 % (0.0-8.0); RED BLOOD COUNT 2.24 MIL/MM3 (4.50-5.90); RED CELL DISTRIBUTION WIDTH 20.3 % (11.6-17.2); WHITE BLOOD COUNT 14.8 TH/MM3 (4.0-11.0)
[2016-04-06 07:04] LABS: HEMO FLAGS AUTO DIFF
[2016-04-06 07:07] LABS: HEMATOCRIT 20.2 % (39.0-51.0)
[2016-04-06 07:20] LABS: INDIRECT BILIRUBIN 1.8 MG/DL (0.0-0.8); TOTAL BILIRUBIN ADULT 11.2 MG/DL (0.2-1.0)
[2016-04-06 07:47] LABS: BANDS 3 % (0-6); BASOPHILS 1 % (0-2); KERATOCYTES OCC (NORMAL); NEUTROPHIL # MANUAL DIFF 12.3 TH/MM3 (1.8-7.7); PLATELET ESTIMATE SMEAR NORMAL (NORMAL); PLATELET MORPHOLOGY CLUMPED (NORMAL); POLYS (SEG NEUTROPHILS) 80 % (16-70); SCAN/DIFF FINAL DIFF MANUAL; TARGET CELLS 1+ (NORMAL); WBC DIFF SAMPLE 100
--- NOTE | 2016-04-06 08:40 | HHI.PR ---
Subjective Remarks ill looking but in no acute distress. has mild abdominal pain. no fever. d/w oncology. Objective Vitals Vital Signs Date Time Temp Pulse Resp B/P Pulse Ox O2 Delivery O2 Flow Rate FiO2 04/06/16 04:00 97.1 73 18 138/73 98 04/06/16 00:00 97.5 72 18 122/72 98 04/05/16 17:50 97.6 84 20 139/68 95 04/05/16 16:00 95.3 85 20 144/70 94 04/05/16 12:00 97.1 78 20 127/65 95 I/O 04/05/16 04/05/16 04/05/16 04/06/16 04/06/16 04/06/16 07:00 15:00 23:00 07:00 15:00 23:00 Intake Total 0 ml 1288 ml Output Total 810 ml 875 ml 575 ml Balance -810 ml -875 ml -575 ml 1288 ml Intake Oral 0 ml 240 ml IV Total 1048 ml Output Urine Total 810 ml 575 ml Drainage Total 875 ml Bladder Scan Volume Amount 932 ml 756 ml 235 ml 265 ml Result Diagram: 04/06/16 0615 04/05/16 0430 Imaging Last Impressions Abdomen Ultrasound 04/05/16 0800 Signed Impressions: Service Date/Time: Tuesday, April 05, 2016 10:47 - CONCLUSION: Trace perihepatic free fluid and a small volume of free fluid in the right lower quadrant. Dusty Lake MD Bile Duct Dilation 04/03/16 0000 Signed Impressions: Service Date/Time: Sunday, April 03, 2016 13:21 - CONCLUSION: 1. Extensive disease throughout the liver with central occlusion of the left hepatic ducts. 2. As the right internal/external drain was placed previously, I was unable to pass a second catheter through the ampulla and a [place] loop catheter was placed into the distal common bile duct with extra side holes cut more centrally to facilitate drainage of the left ducts. Chan Jasmine MD Cholangiopancreatography MRI 04/02/16 0000 Signed Impressions: Service Date/Time: March 13:18 - CONCLUSION: 1. Widespread metastatic disease throughout the liver most prominent in segment 6 where there is a 7.4 cm lesion. There is a mass in the redd hepatis with stenosis of the right portal vein as well as compression of the biliary ducts worse in the left lobe than on the right. Mario Merida MD Liver Ultrasound 04/01/16 0000 Signed Impressions: Service Date/Time: Friday, April 01, 2016 15:57 - CONCLUSION: 1.Abnormal exam with multiple heterogeneous mixed echogenicity lesions identified within the liver consistent with multiple metastatic lesions. The largest of these are seen within the right lobe. 2.Abnormal wall thickening of the gallbladder which may represent metastatic involvement versus low oncotic pressure. No evidence of ascites on this exam. The pancreas is not visualized well and the previously indicated masses are seen. Milli Burger MD Chest X-Ray 03/31/16 0023 Signed Impressions: Service Date/Time: Thursday, March 31, 2016 00:55 - CONCLUSION: Mild diaphragmatic asymmetry of undetermined chronicity. Dusty Vanessa MD Lower Extremity Ultrasound 03/30/168 Signed Impressions: Service Date/Time: Wednesday, March 30, 2016 21:38 - CONCLUSION: No DVT of either lower extremity. Dusty Stuart MD Objective Remarks GENERAL: jaundiced, in no apparent distress. CARDIOVASCULAR: Regular rate and regular rhythm without murmurs, gallops, or rubs. RESPIRATORY: Clear to auscultation. Breath sounds equal bilaterally. No wheezes , rales, or rhonchi. GASTROINTESTINAL: Abdomen soft, non-tender, nondistended. Normal, active bowel sounds- drains in place. MUSCULOSKELETAL: Extremities without clubbing, cyanosis, or edema. NEURO: Alert & Oriented x4 to person, place, time, situation. Moves all ext x4 Procedures cholecystostomy tube placement/ percutaneous transhepatic drainage of the right ducts. Conversion of percutaneous drains to internal metalic stents, left and right. Medications and IVs Current Medications Sodium Chloride 1,000 ml @ 999 mls/hr BOLUS ONCE IV Last administered on 03/30 23:26; Start 03/30/16 at 23:15; Stop 03/31/16 at 00:15; Status DC Sodium Chloride 1,000 ml @ 125 mls/hr Q8H IV Last administered on 04/06/16 06 :26; Start 03/30/16 at 23:15 Sodium Chloride (NS 1000 ml Inj) 1,000 ml @ 100 mls/hr Q10H IV ; Start at 00:21; Stop 03/31/16 at 00:25; Status DC IV Flush (NS Flush) 2 ml UNSCH PRN FLUSH FLUSH AFTER USING IV ACCESS; Start at 00:30 IV Flush (NS Flush) 2 ml BID FLUSH Last administered on 04/05/16 09:20; Start 03/31/16 at 09:00 Ondansetron HCl (Zofran Inj) 4 mg Q6H PRN IVP NAUSEA OR VOMITING; Start at 00:30 Enoxaparin Sodium (Lovenox Inj) 40 mg Q24H SQ Last administered on 04/04/16 13 :02; Start 03/31/16 at 09:00; Stop 04/05/16 at 16:06; Status DC Naloxone HCl 0.4 mg 0.4 mg UNSCH PRN IV SEE LABEL COMMENTS; Start 03/31/16 at 00:30 Cefepime HCl 1000 mg/Sodium Chloride 100 ml @ 200 mls/hr NOW ONCE IV Last administered on 03/31/16 01:10; Start 03/31/16 at 00:30; Stop 03/31/16 at 00:59 ; Status DC Cefepime HCl 1000 mg/Sodium Chloride 100 ml @ 200 mls/hr Q12H IV ; Start at 12:00; Stop 03/31/16 at 12:00; Status DC Cefepime HCl/ Sodium Chloride (Maxipime Inj/NS Inj) 100 ml @ 200 mls/hr DAILY@ 00 IV Last administered on 04/06/16 01:11; Start 04/01/16 at 00:00 Potassium Chloride (KCl) 30 meq ONCE ONCE PO Last administered on 03/31/16 14 :29; Start 03/31/16 at 13:30; Stop 03/31/16 at 14:15; Status DC Aspirin (Ecotrin Ec) 81 mg DAILY PO Last administered on 04/02/16 10:18; Start 04/01/16 at 09:00; Status Hold Diltiazem HCl (Cardizem Cd) 300 mg DAILY PO Last administered on 04/05/16 09: 20; Start 03/31/16 at 16:00 Finasteride (Proscar) 5 mg DAILY PO Last administered on 04/05/16 09:19; Start 03/31/16 at 14:15 Pantoprazole Sodium (Protonix) 40 mg DAILY PO Last administered on 04/05/16 09 :31; Start 04/01/16 at 09:00 Ondansetron HCl (Zofran Odt) 8 mg TID PO Last administered on 04/03/16 09:46 ; Start 03/31/16 at 18:00 Oxycodone HCl (Roxicodone) 5 mg Q4HR PRN PO PAIN Last administered on 08:06; Start 03/31/16 at 16:00 Fentanyl (Duragesic 50 Mcg Patch.72 Hr) 1 patch Q3D TD Last administered on 21:35; Start 04/01/16 at 20:00 Miscellaneous Information 1 Q3D TD ; Start 04/04/16 at 20:00 Morphine Sulfate (Morphine Inj) 1 mg Q3H PRN IV PUSH pain; Start 04/01/16 at 23 :15 Lorazepam (Ativan Inj) 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 PUSH ; Start 04/02/16 at 09:30; Stop 04/02/16 at 09:50; Status DC Potassium Chloride (KCl) 20 meq Q12HR PO Last administered on 04/03/16 20:59; Start 04/02/16 at 21:00; Status Hold Gadodiamide (Omniscan Pf Inj) 15 ml STK-MED ONCE IV Last administered on 13:40; Start 04/02/16 at 13:40; Stop 04/02/16 at 13:41; Status DC Midazolam HCl (Versed Inj) 5 mg STK-MED ONCE .ROUTE Last administered on 13:31; Start 04/03/16 at 13:31; Stop 04/03/16 at 13:32; Status DC Fentanyl Citrate (fentaNYL INJ) 250 mcg STK-MED ONCE .ROUTE Last administered on 04/03/16 13:31; Start 04/03/16 at 13:31; Stop 04/03/16 at 13:32; Status DC Thrombin (Thrombin Top Soln) 5,000 units STK-MED ONCE .ROUTE Last administered on 04/03/16 14:18; Start 04/03/16 at 14:18; Stop 04/03/16 at 14:19; Status DC Fentanyl Citrate (fentaNYL INJ) 100 mcg STK-MED ONCE .ROUTE Last administered on 04/03/16 15:03; Start 04/03/16 at 15:03; Stop 04/03/16 at 15:04; Status DC Midazolam HCl (Versed Inj) 2 mg STK-MED ONCE .ROUTE Last administered on 15:03; Start 04/03/16 at 15:03; Stop 04/03/16 at 15:04; Status DC Iohexol 60 ml 60 ml STK-MED ONCE OTHER Last administered on 04/03/16 15:30; Start 04/03/16 at 15:30; Stop 04/03/16 at 16:10; Status DC Sodium Chloride (NS 250 ml Inj) 250 ml @ 250 mls/hr BOLUS ONCE IV Last administered on 04/04/16 07:00; Start 04/04/16 at 07:00; Stop 04/04/16 at 07:59 ; Status DC Senna/Docusate Sodium (Irasema-Colace) 1 tab DAILY PO Last administered on 09:20; Start 04/04/16 at 11:30 Lorazepam (Ativan Inj) 2 mg STK-MED ONCE .ROUTE Last administered on 04/05/16 14:17; Start 04/05/16 at 14:17; Stop 04/05/16 at 14:18; Status DC Fentanyl Citrate (fentaNYL INJ) 250 mcg STK-MED ONCE .ROUTE Last administered on 04/05/16 14:17; Start 04/05/16 at 14:17; Stop 04/05/16 at 14:18; Status DC Vancomycin HCl (Vancomycin Inj) 1,000 mg STK-MED ONCE .ROUTE Last administered on 04/05/16 14:17; Start 04/05/16 at 14:17; Stop 04/05/16 at 14:18; Status DC Iohexol (Omnipaque 350 Inj) 80 ml STK-MED ONCE .XX Last administered on 16:13; Start 04/05/16 at 16:13; Stop 04/05/16 at 16:14; Status DC A/P Assessment and Plan A/P - pancreatic cancer with biliary obstruction MRCP with widespread metastatic disease throughout the liver and a mass in the redd hepatis with stenosis of the right portal vein as well as compression of the biliary ducts worse in the left lobe than on the right. s/p PTC and conversion of percutaneous drains to internal metalic stents, left and right- management per IR. continue with pain control- GI and oncology following. -leukocytosis- improving- afebrile but given the biliary duct obstruction, will continue with IV antibiotic. -anemia of chronic disease- will transfuse with PRBC- will monitor H/H - oncology following. -hypertension; continue cardizem -hypokalemia; replaced -urinary retention; place root cath. -DVT prophylaxis; lovenox Licha Schmitz MD Apr 06, 2016 08:40
[2016-04-06] MEDS: ONDANSETRON ODT 4 MG TAB PO SCH ×2 (09:00→13:00)
[2016-04-06] MEDS: SODIUM CHLORIDE 0.9% FLUSH 5 ML FLUSH FLUSH SCH ×2 (09:00→21:41)
[2016-04-06] MEDS: PANTOPRAZOLE SOD 40 MG DELAYED RELEASE TAB PO SCH ×2 (09:52→10:01)
[2016-04-06] MEDS: DOCUSATE SODIUM 50 MG/SENNA 8.6 MG TAB PO SCH (10:01)
[2016-04-06] MEDS: FINASTERIDE 5 MG TAB PO SCH (10:01)
[2016-04-06] MEDS: DILTIAZEM-CD 300 MG CAP ER PO SCH (10:10)
[2016-04-06] MEDS ORDERED: SODIUM CHLOR 0.9% 250 ML INJ 250 ML IV ONE (10:30)
--- NOTE | 2016-04-06 10:31 | PD.ONC.PN ---
Subjective Subjective Remarks Afebrile overnight. Patient resting comfortably. He wants some cold water to drink. Objective Data Date Time Temp Pulse Resp B/P Pulse Ox O2 Delivery O2 Flow Rate FiO2 04/06/16 08:00 96.9 77 19 143/67 96 04/06/16 04:00 97.1 73 18 138/73 98 04/06/16 00:00 97.5 72 18 122/72 98 04/05/16 17:50 97.6 84 20 139/68 95 04/05/16 16:00 95.3 85 20 144/70 94 04/05/16 12:00 97.1 78 20 127/65 95 04/06/16 04/06/16 04/06/16 07:00 15:00 23:00 Intake Total 1288 ml Balance 1288 ml Result Diagram: 04/06/16 0615 04/05/16 0430 Laboratory Results Laboratory Tests Test 04/05/16 04/06/16 18:39 06:15 Ammonia 28 MCMOL/L White Blood Count 14.8 TH/MM3 Red Blood Count 2.24 MIL/MM3 Hemoglobin 6.9 GM/DL Hematocrit 20.2 % Mean Corpuscular Volume 90.0 FL Mean Corpuscular Hemoglobin 30.8 PG Mean Corpuscular Hemoglobin 34.3 % Concent Red Cell Distribution Width 20.3 % Platelet Count TH/MM3 Mean Platelet Volume FL Neutrophils (%) (Auto) 81.0 % Lymphocytes (%) (Auto) 12.1 % Monocytes (%) (Auto) 6.4 % Eosinophils (%) (Auto) 0.3 % Basophils (%) (Auto) 0.2 % Neutrophils # (Auto) 12.0 TH/MM3 Lymphocytes # (Auto) 1.8 TH/MM3 Monocytes # (Auto) 0.9 TH/MM3 Eosinophils # (Auto) 0.0 TH/MM3 Basophils # (Auto) 0.0 TH/MM3 CBC Comment AUTO DIFF Differential Total Cells 100 Counted Neutrophils % (Manual) 80 % Band Neutrophils % 3 % Lymphocytes % 11 % Monocytes % 5 % Basophils % 1 % Neutrophils # (Manual) 12.3 TH/MM3 Differential Comment FINAL DIFF MANUAL Platelet Estimate NORMAL Platelet Morphology Comment CLUMPED Target Cells 1+ Keratocytes OCC Total Bilirubin 11.2 MG/DL Direct Bilirubin 9.4 MG/DL Indirect Bilirubin 1.8 MG/DL Aspartate Amino Transf 166 U/L (AST/SGOT) Alanine Aminotransferase 227 U/L (ALT/SGPT) Alkaline Phosphatase 1302 U/L Total Protein 4.5 GM/DL Albumin 1.1 GM/DL Administered Medications Medications (Trade) Dose Ordered Sig/Rock Route PRN Reason Start Time Stop Time Status Last Admin Dose Admin Sodium Chloride (NS 1000 ml Inj) 1,000 ml @ 125 mls/hr Q8H IV 03/30/16 23:15 04/06/16 06:26 IV Flush 2 ml 2 ml BID FLUSH 03/31/16 09:00 04/05/16 09:20 Cefepime HCl/ Sodium Chloride (Maxipime Inj/NS Inj) 100 ml @ 200 mls/hr DAILY@00 IV 04/01/16 00:00 04/06/16 01:11 Aspirin (Ecotrin Ec) 81 mg DAILY PO 04/01/16 09:00 Hold 04/02/16 10:18 Diltiazem HCl (Cardizem Cd) 300 mg DAILY PO 03/31/16 16:00 04/06/16 10:10 Finasteride (Proscar) 5 mg DAILY PO 03/31/16 14:15 04/06/16 10:01 Pantoprazole Sodium (Protonix) 40 mg DAILY PO 04/01/16 09:00 04/06/16 10:01 Ondansetron HCl (Zofran Odt) 8 mg TID PO 03/31/16 18:00 04/03/16 09:46 Oxycodone HCl (Roxicodone) 5 mg Q4HR PRN PO PAIN 03/31/16 16:00 04/04/16 08:06 Fentanyl (Duragesic 50 Mcg Patch.72 Hr) 1 patch Q3D TD 04/01/16 20:00 04/04/16 21:35 Potassium Chloride (KCl) 20 meq Q12HR PO 04/02/16 21:00 Hold 04/03/16 20:59 Senna/Docusate Sodium (Irasema-Colace) 1 tab DAILY PO 04/04/16 11:30 04/06/16 10:01 Objective Remarks GENERAL: +Jaundice, alopecia. SKIN: Warm and dry. HEAD: Normocephalic. EYES: +scleral icterus. No injection or drainage. NECK: Supple, trachea midline. CARDIOVASCULAR: Regular rate and rhythm RESPIRATORY: Breath sounds equal bilaterally. No accessory muscle use. GASTROINTESTINAL: Abdomen soft, drain in place. EXTREMITIES: No cyanosis MUSCULOSKELETAL: generalized physical deconditioning. Assessment/Plan Problem List: (1) Pancreatic cancer metastasized to liver Status: Acute Plan: 04/06/16: s/p internalization of stent yesterday. bilirubin improved to 11 today. 04/04/16: Bilirubin remains elevated. R abdomen drain in place with 1150ml's output in last 24 hours. 04/03/16. Pending change in chemotherapy. Noted hyperbilirubinemia with bilirubin increase through hospital course. LFT elevated associated with hyperbilirubinemia. GI following, assessed that based on imaging, ERCP would not relieve proximal biliary obstructions Percutaneous drain and paracentesis today by IR. Continue support. Monitor bilirubin. (2) Leukocytosis Status: Acute Plan: -- Related to Neulasta vs. inflammation/infection from cholangitis. -- Follow, pt covered with antibiotics. --BC no growth x 5 days Assessment 66-year-old man with with metastatic unresectable pancreatic cancer receiving first-line chemotherapy with Abraxane and gemcitabine with progression. New hyperbilirubinemia/biliary obstruction requiring percutaneous drain. Plan 1. Continue to monitor bilirubin 2. 2 units pRBC 3. supportive care Attending Statement The exam, history, and the medical decision-making described in the above note were completed with the assistance of the mid-level provider. I reviewed and agree with the findings presented. I attest that I had a [id number] encounter with the patient on the same day, and personally performed and documented my assessment and findings in the medical record. Pt seen and examined. Eager to go home and recover at home. Discussed events over the weekend. Feels urge to move bowels. Marginal decrease in bilirubin. Plans to follow up with Dr. Gonzalez as outpt. Problem Qualifiers (1) Leukocytosis: Qualified Code: D72.829 - Leukocytosis, unspecified type Viktoriya Bray Apr 06, 2016 10:31 Lian Zamora MD Apr 06, 2016 19:20
[2016-04-07] VITALS: BP 138/66; PULSE 79; RESP 16; TEMP 97.3; O2SAT 97
[2016-04-07] MEDS: CEFEPIME INJ 1,000 MG in SODIUM CHLORIDE 0.9% INJ 100 ML IV SCH (00:15)
[2016-04-07 04:00] VITALS: BP 147/62; PULSE 79; RESP 16; TEMP 97.5; O2SAT 96
[2016-04-07 06:10] LABS: TOTAL BILIRUBIN ADULT 11.2 MG/DL (0.2-1.0)
[2016-04-07] MEDS: SODIUM CHLOR 0.9% 1000 ML INJ 1,000 ML IV SCH ×4 (07:15→20:08)
[2016-04-07 08:00] VITALS: BP 139/72; PULSE 92; RESP 20; TEMP 98.6; O2SAT 96
[2016-04-07] MEDS: FINASTERIDE 5 MG TAB PO SCH ×3 (08:14→08:27)
[2016-04-07] MEDS: DOCUSATE SODIUM 50 MG/SENNA 8.6 MG TAB PO SCH (08:14)
[2016-04-07] MEDS: DILTIAZEM-CD 300 MG CAP ER PO SCH (08:14)
[2016-04-07] MEDS: ONDANSETRON ODT 4 MG TAB PO SCH ×5 (08:14→17:10)
[2016-04-07] MEDS: SODIUM CHLORIDE 0.9% FLUSH 5 ML FLUSH FLUSH SCH ×2 (08:15→20:07)
--- NOTE | 2016-04-07 10:11 | HHI.PR ---
Subjective Remarks ill looking but in no acute distress. has mild abdominal discomfort. no nausea, vomiting or fever. Objective Vitals Vital Signs Date Time Temp Pulse Resp B/P Pulse Ox O2 Delivery O2 Flow Rate FiO2 04/07/16 08:00 98.6 92 20 139/72 96 04/07/16 04:00 97.5 79 16 147/62 96 04/07/16 00:00 97.3 79 16 138/66 97 04/06/16 20:00 96.9 69 16 149/71 96 04/06/16 20:00 96.9 69 16 149/71 96 04/06/16 16:09 96.6 82 18 122/64 04/06/16 16:00 97.7 79 20 125/97 98 04/06/16 15:14 96.5 87 16 118/56 93 I/O 04/06/16 04/06/16 04/06/16 04/07/16 04/07/16 04/07/16 07:00 15:00 23:00 07:00 15:00 23:00 Intake Total 1288 ml 480 ml 1160 ml 1100 ml 120 ml Output Total 400 ml 100 ml 250 ml Balance 1288 ml 80 ml 1060 ml 850 ml 120 ml Intake Oral 240 ml 480 ml 360 ml 240 ml 120 ml IV Total 1048 ml 100 ml 860 ml Packed Cells 700 ml Output Urine Total 400 ml 100 ml 250 ml Drainage Total 0 ml 0 ml Bladder Scan Volume Amount 235 ml 265 ml 265 ml # Bowel Movements 0 0 0 Result Diagram: 04/06/16 0615 04/05/16 0430 Imaging Last Impressions Abdomen Ultrasound 04/05/16 0800 Signed Impressions: Service Date/Time: Tuesday, April 05, 2016 10:47 - CONCLUSION: Trace perihepatic free fluid and a small volume of free fluid in the right lower quadrant. Dusty Lake MD Bile Duct Dilation 04/03/16 0000 Signed Impressions: Service Date/Time: Sunday, April 03, 2016 13:21 - CONCLUSION: 1. Extensive disease throughout the liver with central occlusion of the left hepatic ducts. 2. As the right internal/external drain was placed previously, I was unable to pass a second catheter through the ampulla and a [place] loop catheter was placed into the distal common bile duct with extra side holes cut more centrally to facilitate drainage of the left ducts. Chan Jasmine MD Cholangiopancreatography MRI 04/02/16 0000 Signed Impressions: Service Date/Time: March 13:18 - CONCLUSION: 1. Widespread metastatic disease throughout the liver most prominent in segment 6 where there is a 7.4 cm lesion. There is a mass in the redd hepatis with stenosis of the right portal vein as well as compression of the biliary ducts worse in the left lobe than on the right. Mario Merida MD Liver Ultrasound 04/01/16 0000 Signed Impressions: Service Date/Time: Friday, April 01, 2016 15:57 - CONCLUSION: 1.Abnormal exam with multiple heterogeneous mixed echogenicity lesions identified within the liver consistent with multiple metastatic lesions. The largest of these are seen within the right lobe. 2.Abnormal wall thickening of the gallbladder which may represent metastatic involvement versus low oncotic pressure. No evidence of ascites on this exam. The pancreas is not visualized well and the previously indicated masses are seen. Milli Burger MD Chest X-Ray 03/31/16 0023 Signed Impressions: Service Date/Time: Thursday, March 31, 2016 00:55 - CONCLUSION: Mild diaphragmatic asymmetry of undetermined chronicity. Dusty Vanessa MD Lower Extremity Ultrasound 03/30/162107 Signed Impressions: Service Date/Time: Wednesday, March 30, 2016 21:38 - CONCLUSION: No DVT of either lower extremity. Dusty Stuart MD Objective Remarks GENERAL: jaundiced, in no apparent distress. CARDIOVASCULAR: Regular rate and regular rhythm without murmurs, gallops, or rubs. RESPIRATORY: Clear to auscultation. Breath sounds equal bilaterally. No wheezes , rales, or rhonchi. GASTROINTESTINAL: Abdomen soft, non-tender, nondistended. Normal, active bowel sounds- drains in place. MUSCULOSKELETAL: Extremities without clubbing, cyanosis, or edema. NEURO: Alert & Oriented x4 to person, place, time, situation. Moves all ext x4 Procedures cholecystostomy tube placement/ percutaneous transhepatic drainage of the right ducts. Conversion of percutaneous drains to internal metalic stents, left and right. Medications and IVs Current Medications Sodium Chloride 1,000 ml @ 999 mls/hr BOLUS ONCE IV Last administered on 03/30t 23:26; Start 03/30/16 at 23:15; Stop 03/31/16 at 00:15; Status DC Sodium Chloride 1,000 ml @ 125 mls/hr Q8H IV Last administered on 04/07/16 07 :15; Start 03/30/16 at 23:15 Sodium Chloride (NS 1000 ml Inj) 1,000 ml @ 100 mls/hr Q10H IV ; Start at 00:21; Stop 03/31/16 at 00:25; Status DC IV Flush (NS Flush) 2 ml UNSCH PRN FLUSH FLUSH AFTER USING IV ACCESS; Start at 00:30 IV Flush (NS Flush) 2 ml BID FLUSH Last administered on 04/06/16 21:41; Start 03/31/16 at 09:00 Ondansetron HCl (Zofran Inj) 4 mg Q6H PRN IVP NAUSEA OR VOMITING; Start at 00:30 Enoxaparin Sodium (Lovenox Inj) 40 mg Q24H SQ Last administered on 04/04/16 13 :02; Start 03/31/16 at 09:00; Stop 04/05/16 at 16:06; Status DC Naloxone HCl 0.4 mg 0.4 mg UNSCH PRN IV SEE LABEL COMMENTS; Start 03/31/16 at 00:30 Cefepime HCl 1000 mg/Sodium Chloride 100 ml @ 200 mls/hr NOW ONCE IV Last administered on 03/31/16 01:10; Start 03/31/16 at 00:30; Stop 03/31/16 at 00:59 ; Status DC Cefepime HCl 1000 mg/Sodium Chloride 100 ml @ 200 mls/hr Q12H IV ; Start at 12:00; Stop 03/31/16 at 12:00; Status DC Cefepime HCl/ Sodium Chloride (Maxipime Inj/NS Inj) 100 ml @ 200 mls/hr DAILY@ 00 IV Last administered on 04/07/16 00:15; Start 04/01/16 at 00:00 Potassium Chloride (KCl) 30 meq ONCE ONCE PO Last administered on 03/31/16 14 :29; Start 03/31/16 at 13:30; Stop 03/31/16 at 14:15; Status DC Aspirin (Ecotrin Ec) 81 mg DAILY PO Last administered on 04/02/16 10:18; Start 04/01/16 at 09:00; Status Hold Diltiazem HCl (Cardizem Cd) 300 mg DAILY PO Last administered on 04/07/16 08: 14; Start 03/31/16 at 16:00 Finasteride (Proscar) 5 mg DAILY PO Last administered on 04/06/16 10:01; Start 03/31/16 at 14:15 Pantoprazole Sodium (Protonix) 40 mg DAILY PO Last administered on 04/06/16 10 :01; Start 04/01/16 at 09:00 Ondansetron HCl (Zofran Odt) 8 mg TID PO Last administered on 04/03/16 09:46 ; Start 03/31/16 at 18:00 Oxycodone HCl (Roxicodone) 5 mg Q4HR PRN PO PAIN Last administered on 14:09; Start 03/31/16 at 16:00 Fentanyl (Duragesic 50 Mcg Patch.72 Hr) 1 patch Q3D TD Last administered on 21:35; Start 04/01/16 at 20:00 Miscellaneous Information 1 Q3D TD ; Start 04/04/16 at 20:00 Morphine Sulfate (Morphine Inj) 1 mg Q3H PRN IV PUSH pain; Start 04/01/16 at 23 :15 Lorazepam (Ativan Inj) 0.5 mg LOGGING TRUCK DRIVER ONCE IV PUSH ; Start 04/02/16 at 09:30; Stop 04/02/16 at 09:50; Status DC Potassium Chloride (KCl) 20 meq Q12HR PO Last administered on 04/03/16 20:59; Start 04/02/16 at 21:00; Status Hold Gadodiamide (Omniscan Pf Inj) 15 ml STK-MED ONCE IV Last administered on 13:40; Start 04/02/16 at 13:40; Stop 04/02/16 at 13:41; Status DC Midazolam HCl (Versed Inj) 5 mg STK-MED ONCE .ROUTE Last administered on 13:31; Start 04/03/16 at 13:31; Stop 04/03/16 at 13:32; Status DC Fentanyl Citrate (fentaNYL INJ) 250 mcg STK-MED ONCE .ROUTE Last administered on 04/03/16 13:31; Start 04/03/16 at 13:31; Stop 04/03/16 at 13:32; Status DC Thrombin (Thrombin Top Soln) 5,000 units STK-MED ONCE .ROUTE Last administered on 04/03/16 14:18; Start 04/03/16 at 14:18; Stop 04/03/16 at 14:19; Status DC Fentanyl Citrate (fentaNYL INJ) 100 mcg STK-MED ONCE .ROUTE Last administered on 04/03/16 15:03; Start 04/03/16 at 15:03; Stop 04/03/16 at 15:04; Status DC Midazolam HCl (Versed Inj) 2 mg STK-MED ONCE .ROUTE Last administered on 15:03; Start 04/03/16 at 15:03; Stop 04/03/16 at 15:04; Status DC Iohexol 60 ml 60 ml STK-MED ONCE OTHER Last administered on 04/03/16 15:30; Start 04/03/16 at 15:30; Stop 04/03/16 at 16:10; Status DC Sodium Chloride (NS 250 ml Inj) 250 ml @ 250 mls/hr BOLUS ONCE IV Last administered on 04/04/16 07:00; Start 04/04/16 at 07:00; Stop 04/04/16 at 07:59 ; Status DC Senna/Docusate Sodium (Irasema-Colace) 1 tab DAILY PO Last administered on 08:14; Start 04/04/16 at 11:30 Lorazepam (Ativan Inj) 2 mg STK-MED ONCE .ROUTE Last administered on 04/05/16 14:17; Start 04/05/16 at 14:17; Stop 04/05/16 at 14:18; Status DC Fentanyl Citrate (fentaNYL INJ) 250 mcg STK-MED ONCE .ROUTE Last administered on 04/05/16 14:17; Start 04/05/16 at 14:17; Stop 04/05/16 at 14:18; Status DC Vancomycin HCl (Vancomycin Inj) 1,000 mg STK-MED ONCE .ROUTE Last administered on 04/05/16 14:17; Start 04/05/16 at 14:17; Stop 04/05/16 at 14:18; Status DC Iohexol 80 ml 80 ml STK-MED ONCE .XX Last administered on 04/05/16t 16:13; Start 04/05/16 at 16:13; Stop 04/05/16 at 16:14; Status DC Sodium Chloride (NS 250 ml Inj) 250 ml @ 15 mls/hr ONCE ONCE IV Last administered on 04/06/16t 15:28; Start 04/06/16 at 10:30; Stop 04/07/16 at 03:09 ; Status DC A/P Assessment and Plan A/P - pancreatic cancer with biliary obstruction MRCP with widespread metastatic disease throughout the liver and a mass in the redd hepatis with stenosis of the right portal vein as well as compression of the biliary ducts worse in the left lobe than on the right. s/p PTC and conversion of percutaneous drains to internal metalic stents- management per IR. continue with pain control- GI and oncology following. -leukocytosis- improving- afebrile but given the biliary duct obstruction, will continue with IV antibiotic. -anemia of chronic disease- s/p PRBC transfusion- will monitor H/H - oncology following. -hypertension; continue cardizem -hypokalemia; replaced -urinary retention; placed root cath. -DVT prophylaxis; Licha Trejo MD Apr 07, 2016 10:11
[2016-04-07 10:32] LABS: AUTOMATED NEUTROPHIL # 14.2 TH/MM3 (1.8-7.7); BASOPHIL # 0.1 TH/MM3 (0-0.2); BASOPHIL % 0.6 % (0.0-2.0); EOSINOPHIL # 0.1 TH/MM3 (0-0.4); EOSINOPHIL % 0.6 % (0.0-4.0); HEMO FLAGS DIFF FINAL; LYMPH % 14.3 % (9.0-44.0); LYMPHOCYTE # 2.6 TH/MM3 (1.0-4.8); MEAN CELL VOLUME 87.9 FL (80.0-100.0); MEAN CORPUSCULAR HEMOGLOBIN 29.5 PG (27.0-34.0); MEAN CORPUSCULAR HGB CONC 33.6 % (32.0-36.0); MONO % 5.3 % (0.0-8.0); NEUT % 79.2 % (16.0-70.0); PLATELET COUNT 104 TH/MM3 (150-450); RED BLOOD COUNT 3.98 MIL/MM3 (4.50-5.90); RED CELL DISTRIBUTION WIDTH 19.4 % (11.6-17.2)
[2016-04-07 10:41] LABS: POTASSIUM 4.2 MEQ/L (3.5-5.1)
[2016-04-07 11:03] LABS: CALCIUM-PROTEIN CORRECTED 8.3 MG/DL (8.5-10.1)
[2016-04-07 11:53] VITALS: BP 124/67; PULSE 86; RESP 19; TEMP 98.4; O2SAT 95
--- NOTE | 2016-04-07 14:38 | PD.ONC.PN ---
Subjective Subjective Remarks Afebrile overnight. Patient resting comfortably. He says he has difficulty focusing. Denies pain. Objective Data Date Time Temp Pulse Resp B/P Pulse Ox O2 Delivery O2 Flow Rate FiO2 04/07/16 11:53 98.4 86 19 124/67 95 04/07/16 08:00 98.6 92 20 139/72 96 04/07/16 04:00 97.5 79 16 147/62 96 04/07/16 00:00 97.3 79 16 138/66 97 04/06/16 20:00 96.9 69 16 149/71 96 04/06/16 20:00 96.9 69 16 149/71 96 04/06/16 16:09 96.6 82 18 122/64 04/06/16 16:00 97.7 79 20 125/97 98 04/06/16 15:14 96.5 87 16 118/56 93 04/07/16 04/07/16 04/07/16 07:00 15:00 23:00 Intake Total 1100 ml 120 ml Output Total 250 ml Balance 850 ml 120 ml Result Diagram: 04/07/16 0948 04/07/1648 Laboratory Results Laboratory Tests Test 04/07/16 04/07/16 04/07/16 05:10 09:48 11:14 Total Bilirubin 11.2 MG/DL Direct Bilirubin 9.2 MG/DL Indirect Bilirubin 2.0 MG/DL Aspartate Amino Transf 125 U/L (AST/SGOT) Alanine Aminotransferase 189 U/L (ALT/SGPT) Alkaline Phosphatase 1147 U/L Total Protein 4.6 GM/DL 5.2 GM/DL Albumin 1.2 GM/DL White Blood Count 18.0 TH/MM3 Red Blood Count 3.98 MIL/MM3 Hemoglobin 11.7 GM/DL Hematocrit 35.0 % Mean Corpuscular Volume 87.9 FL Mean Corpuscular Hemoglobin 29.5 PG Mean Corpuscular Hemoglobin 33.6 % Concent Red Cell Distribution Width 19.4 % Platelet Count 104 TH/MM3 Mean Platelet Volume 9.5 FL Neutrophils (%) (Auto) 79.2 % Lymphocytes (%) (Auto) 14.3 % Monocytes (%) (Auto) 5.3 % Eosinophils (%) (Auto) 0.6 % Basophils (%) (Auto) 0.6 % Neutrophils # (Auto) 14.2 TH/MM3 Lymphocytes # (Auto) 2.6 TH/MM3 Monocytes # (Auto) 0.9 TH/MM3 Eosinophils # (Auto) 0.1 TH/MM3 Basophils # (Auto) 0.1 TH/MM3 CBC Comment DIFF FINAL Differential Comment Sodium Level 129 MEQ/L Potassium Level 4.2 MEQ/L Chloride Level 100 MEQ/L Carbon Dioxide Level 18.0 MEQ/L Anion Gap 11 MEQ/L Blood Urea Nitrogen 30 MG/DL Creatinine 1.18 MG/DL Estimat Glomerular Filtration 61 ML/MIN Rate Random Glucose 89 MG/DL Calcium Level 7.3 MG/DL Protein Corrected Calcium 8.3 MG/DL Ammonia 12 MCMOL/L Administered Medications Medications (Trade) Dose Ordered Sig/Rock Route PRN Reason Start Time Stop Time Status Last Admin Dose Admin Sodium Chloride (NS 1000 ml Inj) 1,000 ml @ 125 mls/hr Q8H IV 03/30/16 23:15 04/07/16 13:42 IV Flush 2 ml 2 ml BID FLUSH 03/31/16 09:00 04/06/16 21:41 Cefepime HCl/ Sodium Chloride (Maxipime Inj/NS Inj) 100 ml @ 200 mls/hr DAILY@00 IV 04/01/16 00:00 04/07/16 00:15 Aspirin (Ecotrin Ec) 81 mg DAILY PO 04/01/16 09:00 Hold 04/02/16 10:18 Diltiazem HCl (Cardizem Cd) 300 mg DAILY PO 03/31/16 16:00 04/07/16 08:14 Finasteride (Proscar) 5 mg DAILY PO 03/31/16 14:15 04/06/16 10:01 Pantoprazole Sodium (Protonix) 40 mg DAILY PO 04/01/16 09:00 04/06/16 10:01 Ondansetron HCl (Zofran Odt) 8 mg TID PO 03/31/16 18:00 04/03/16 09:46 Oxycodone HCl (Roxicodone) 5 mg Q4HR PRN PO PAIN 03/31/16 16:00 04/06/16 14:09 Fentanyl (Duragesic 50 Mcg Patch.72 Hr) 1 patch Q3D TD 04/01/16 20:00 04/04/16 21:35 Potassium Chloride (KCl) 20 meq Q12HR PO 04/02/16 21:00 Hold 04/03/16 20:59 Senna/Docusate Sodium (Irasema-Colace) 1 tab DAILY PO 04/04/16 11:30 04/07/16 08:14 Objective Remarks GENERAL: Middle aged male, sitting up in bed in nad. SKIN: Warm and dry. HEAD: Normocephalic. EYES: +scleral icterus. No injection or drainage. NECK: Supple, trachea midline. CARDIOVASCULAR: Regular rate and rhythm RESPIRATORY: Breath sounds equal bilaterally. No accessory muscle use. GASTROINTESTINAL: Abdomen soft, drain in place. EXTREMITIES: No cyanosis MUSCULOSKELETAL: generalized physical deconditioning. Assessment/Plan Problem List: (1) Pancreatic cancer metastasized to liver Status: Acute Plan: 04/07/16: bili remains elevated 04/06/16: s/p internalization of stent yesterday. bilirubin improved to 11 today. 04/04/16: Bilirubin remains elevated. R abdomen drain in place with 1150ml's output in last 24 hours. 04/03/16. Pending change in chemotherapy. Noted hyperbilirubinemia with bilirubin increase through hospital course. LFT elevated associated with hyperbilirubinemia. GI following, assessed that based on imaging, ERCP would not relieve proximal biliary obstructions Percutaneous drain and paracentesis today by IR. Continue support. Monitor bilirubin. (2) Leukocytosis Status: Acute Plan: -- Related to Neulasta vs. inflammation/infection from cholangitis. -- Follow, pt covered with antibiotics. --BC no growth x 5 days Assessment 66-year-old man with with metastatic unresectable pancreatic cancer receiving first-line chemotherapy with Abraxane and gemcitabine with progression. New hyperbilirubinemia/biliary obstruction requiring percutaneous drain. Plan 1. hgb stable 2. bili remains elevated. prognosis poor. will ask IR to re-evaluate. If this is not effective, we may want to consult palliative care. we were hoping to discharge and have patient follow up with Dr. Gonzalez. UPDATE: I spoke with invasive radiology. there is nothing further they can do. they believe the bilirubin is rising not because of blockage, but because of metastatic disease. will consult palliative care for assistance with goals. 3. supportive care. Attending Statement Discussed above w/ VARUN Beltrán. Pt clinical decline despite support, bilirubin continue to increase due to metastatic disease rather than obstruction. Discussed w/ Dr. Gonzalez, pt's primary oncologist who support palliative care and hospice pending patient's decision. Problem Qualifiers (1) Leukocytosis: Qualified Code: D72.829 - Leukocytosis, unspecified type Viktoriya Bray Apr 07, 2016 14:38 Lian Zamora MD Apr 07, 2016 23:41
[2016-04-07 16:00] VITALS: BP 114/63; PULSE 96; RESP 17; TEMP 98.4; O2SAT 96
[2016-04-07 20:00] VITALS: BP 125/69; PULSE 66; RESP 18; TEMP 97.6; O2SAT 97
[2016-04-07] MEDS: fentaNYL 50 MCG/HR PATCH TD SCH (20:08)
[2016-04-08] MEDS: CEFEPIME INJ 1,000 MG in SODIUM CHLORIDE 0.9% INJ 100 ML IV SCH (00:03)
[2016-04-08 06:04] LABS: AUTOMATED NEUTROPHIL # 17.4 TH/MM3 (1.8-7.7); EOSINOPHIL # 0.1 TH/MM3 (0-0.4); EOSINOPHIL % 0.3 % (0.0-4.0); HEMATOCRIT 30.5 % (39.0-51.0); LYMPH % 11.5 % (9.0-44.0); LYMPHOCYTE # 2.4 TH/MM3 (1.0-4.8); MEAN CELL VOLUME 87.1 FL (80.0-100.0); MEAN CORPUSCULAR HEMOGLOBIN 29.7 PG (27.0-34.0); MEAN CORPUSCULAR HGB CONC 34.2 % (32.0-36.0); NEUT % 83.2 % (16.0-70.0); PLATELET COUNT 95 TH/MM3 (150-450); RED CELL DISTRIBUTION WIDTH 18.7 % (11.6-17.2); WHITE BLOOD COUNT 20.9 TH/MM3 (4.0-11.0)
[2016-04-08 06:08] LABS: HEMO FLAGS AUTO DIFF
[2016-04-08 06:51] LABS: INDIRECT BILIRUBIN 1.5 MG/DL (0.0-0.8); TOTAL BILIRUBIN ADULT 7.8 MG/DL (0.2-1.0)
[2016-04-08] MEDS: SODIUM CHLOR 0.9% 1000 ML INJ 1,000 ML IV SCH (07:15)
[2016-04-08 07:57] LABS: SCAN/DIFF AUTO DIFF CONFIRMED
[2016-04-08 08:00] VITALS: BP 134/73; PULSE 97; RESP 20; TEMP 97.9; O2SAT 95
[2016-04-08] MEDS: SODIUM CHLORIDE 0.9% FLUSH 5 ML FLUSH FLUSH SCH (08:42)
[2016-04-08] MEDS: ONDANSETRON ODT 4 MG TAB PO SCH ×2 (09:00→12:42)
[2016-04-08] MEDS: DOCUSATE SODIUM 50 MG/SENNA 8.6 MG TAB PO SCH (09:37)
[2016-04-08] MEDS: PANTOPRAZOLE SOD 40 MG DELAYED RELEASE TAB PO SCH (09:37)
[2016-04-08] MEDS: FINASTERIDE 5 MG TAB PO SCH (09:37)
[2016-04-08] MEDS: DILTIAZEM-CD 300 MG CAP ER PO SCH (09:37)
--- NOTE | 2016-04-08 09:46 | HHI.PR ---
Subjective Remarks ill looking but in no distress. abdominal pain is mild with no nausea or vomiting. family at the bedside. Objective Vitals Vital Signs Date Time Temp Pulse Resp B/P Pulse Ox O2 Delivery O2 Flow Rate FiO2 04/07/16 20:00 97.6 66 18 125/69 97 04/07/16 16:00 98.4 96 17 114/63 96 04/07/16 11:53 98.4 86 19 124/67 95 I/O 04/07/16 04/07/16 04/07/16 04/08/16 04/08/16 04/08/16 07:00 15:00 23:00 07:00 15:00 23:00 Intake Total 1100 ml 1658 ml 1120 ml 1070 ml Output Total 250 ml 600 ml 240 ml 1250 ml Balance 850 ml 1058 ml 880 ml -180 ml Intake Oral 240 ml 720 ml 240 ml 120 ml IV Total 860 ml 938 ml 880 ml 950 ml Output Urine Total 250 ml 600 ml 240 ml 250 ml Drainage Total 0 ml 1000 ml Bladder Scan Volume Amount 265 ml # Bowel Movements 0 0 0 0 Result Diagram: 04/08/16 0530 04/07/16 0948 Imaging Last Impressions Abdomen Ultrasound 04/05/16 0800 Signed Impressions: Service Date/Time: Tuesday, April 05, 2016 10:47 - CONCLUSION: Trace perihepatic free fluid and a small volume of free fluid in the right lower quadrant. Dusty Lake MD Bile Duct Dilation 04/03/16 0000 Signed Impressions: Service Date/Time: Sunday, April 03, 2016 13:21 - CONCLUSION: 1. Extensive disease throughout the liver with central occlusion of the left hepatic ducts. 2. As the right internal/external drain was placed previously, I was unable to pass a second catheter through the ampulla and a [place] loop catheter was placed into the distal common bile duct with extra side holes cut more centrally to facilitate drainage of the left ducts. Chan Jasmine MD Cholangiopancreatography MRI 04/02/16 0000 Signed Impressions: Service Date/Time: March 13:18 - CONCLUSION: 1. Widespread metastatic disease throughout the liver most prominent in segment 6 where there is a 7.4 cm lesion. There is a mass in the redd hepatis with stenosis of the right portal vein as well as compression of the biliary ducts worse in the left lobe than on the right. Mario Merida MD Liver Ultrasound 04/01/16 0000 Signed Impressions: Service Date/Time: Friday, April 01, 2016 15:57 - CONCLUSION: 1.Abnormal exam with multiple heterogeneous mixed echogenicity lesions identified within the liver consistent with multiple metastatic lesions. The largest of these are seen within the right lobe. 2.Abnormal wall thickening of the gallbladder which may represent metastatic involvement versus low oncotic pressure. No evidence of ascites on this exam. The pancreas is not visualized well and the previously indicated masses are seen. Milli Burger MD Chest X-Ray 03/31/16 0023 Signed Impressions: Service Date/Time: Thursday, March 31, 2016 00:55 - CONCLUSION: Mild diaphragmatic asymmetry of undetermined chronicity. Dusty Vanessa MD Lower Extremity Ultrasound 03/30/168 Signed Impressions: Service Date/Time: Wednesday, March 30, 2016 21:38 - CONCLUSION: No DVT of either lower extremity. Dusty Stuart MD Objective Remarks GENERAL: jaundiced, ill looking- in no apparent distress. CARDIOVASCULAR: Regular rate and regular rhythm without murmurs, gallops, or rubs. RESPIRATORY: Clear to auscultation. Breath sounds equal bilaterally. No wheezes , rales, or rhonchi. GASTROINTESTINAL: Abdomen soft, non-tender, nondistended. Normal, active bowel sounds- drains in place. MUSCULOSKELETAL: Extremities without clubbing, cyanosis, or edema. NEURO: Alert & Oriented x4 to person, place, time, situation. Moves all ext x4 Procedures cholecystostomy tube placement/ percutaneous transhepatic drainage of the right ducts. Conversion of percutaneous drains to internal metalic stents, left and right. Medications and IVs Current Medications Sodium Chloride 1,000 ml @ 999 mls/hr BOLUS ONCE IV Last administered on 03/30 23:26; Start 03/30/16 at 23:15; Stop 03/31/16 at 00:15; Status DC Sodium Chloride 1,000 ml @ 125 mls/hr Q8H IV Last administered on 04/07/16 20 :08; Start 03/30/16 at 23:15 Sodium Chloride (NS 1000 ml Inj) 1,000 ml @ 100 mls/hr Q10H IV ; Start at 00:21; Stop 03/31/16 at 00:25; Status DC IV Flush (NS Flush) 2 ml UNSCH PRN FLUSH FLUSH AFTER USING IV ACCESS; Start at 00:30 IV Flush (NS Flush) 2 ml BID FLUSH Last administered on 04/07/16 20:07; Start 03/31/16 at 09:00 Ondansetron HCl (Zofran Inj) 4 mg Q6H PRN IVP NAUSEA OR VOMITING; Start at 00:30 Enoxaparin Sodium (Lovenox Inj) 40 mg Q24H SQ Last administered on 04/04/16 13 :02; Start 03/31/16 at 09:00; Stop 04/05/16 at 16:06; Status DC Naloxone HCl 0.4 mg 0.4 mg UNSCH PRN IV SEE LABEL COMMENTS; Start 03/31/16 at 00:30 Cefepime HCl 1000 mg/Sodium Chloride 100 ml @ 200 mls/hr NOW ONCE IV Last administered on 03/31/16 01:10; Start 03/31/16 at 00:30; Stop 03/31/16 at 00:59 ; Status DC Cefepime HCl 1000 mg/Sodium Chloride 100 ml @ 200 mls/hr Q12H IV ; Start at 12:00; Stop 03/31/16 at 12:00; Status DC Cefepime HCl/ Sodium Chloride (Maxipime Inj/NS Inj) 100 ml @ 200 mls/hr DAILY@ 00 IV Last administered on 04/08/16 00:03; Start 04/01/16 at 00:00 Potassium Chloride (KCl) 30 meq ONCE ONCE PO Last administered on 03/31/16 14 :29; Start 03/31/16 at 13:30; Stop 03/31/16 at 14:15; Status DC Aspirin (Ecotrin Ec) 81 mg DAILY PO Last administered on 04/02/16 10:18; Start 04/01/16 at 09:00; Status Hold Diltiazem HCl (Cardizem Cd) 300 mg DAILY PO Last administered on 04/07/16 08: 14; Start 03/31/16 at 16:00 Finasteride (Proscar) 5 mg DAILY PO Last administered on 04/06/16 10:01; Start 03/31/16 at 14:15 Pantoprazole Sodium (Protonix) 40 mg DAILY PO Last administered on 04/06/16 10 :01; Start 04/01/16 at 09:00 Ondansetron HCl (Zofran Odt) 8 mg TID PO Last administered on 04/03/16 09:46 ; Start 03/31/16 at 18:00 Oxycodone HCl (Roxicodone) 5 mg Q4HR PRN PO PAIN Last administered on 00:43; Start 03/31/16 at 16:00 Fentanyl (Duragesic 50 Mcg Patch.72 Hr) 1 patch Q3D TD Last administered on 20:08; Start 04/01/16 at 20:00 Miscellaneous Information 1 Q3D TD ; Start 04/04/16 at 20:00 Morphine Sulfate (Morphine Inj) 1 mg Q3H PRN IV PUSH pain; Start 04/01/16 at 23 :15 Lorazepam (Ativan Inj) 0.5 mg AUDIT DIRECTOR ONCE IV PUSH ; Start 04/02/16 at 09:30; Stop 04/02/16 at 09:50; Status DC Potassium Chloride (KCl) 20 meq Q12HR PO Last administered on 04/03/16 20:59; Start 04/02/16 at 21:00; Status Hold Gadodiamide (Omniscan Pf Inj) 15 ml STK-MED ONCE IV Last administered on 13:40; Start 04/02/16 at 13:40; Stop 04/02/16 at 13:41; Status DC Midazolam HCl (Versed Inj) 5 mg STK-MED ONCE .ROUTE Last administered on 13:31; Start 04/03/16 at 13:31; Stop 04/03/16 at 13:32; Status DC Fentanyl Citrate (fentaNYL INJ) 250 mcg STK-MED ONCE .ROUTE Last administered on 04/03/16 13:31; Start 04/03/16 at 13:31; Stop 04/03/16 at 13:32; Status DC Thrombin (Thrombin Top Soln) 5,000 units STK-MED ONCE .ROUTE Last administered on 04/03/16 14:18; Start 04/03/16 at 14:18; Stop 04/03/16 at 14:19; Status DC Fentanyl Citrate (fentaNYL INJ) 100 mcg STK-MED ONCE .ROUTE Last administered on 04/03/16 15:03; Start 04/03/16 at 15:03; Stop 04/03/16 at 15:04; Status DC Midazolam HCl (Versed Inj) 2 mg STK-MED ONCE .ROUTE Last administered on 15:03; Start 04/03/16 at 15:03; Stop 04/03/16 at 15:04; Status DC Iohexol 60 ml 60 ml STK-MED ONCE OTHER Last administered on 04/03/16 15:30; Start 04/03/16 at 15:30; Stop 04/03/16 at 16:10; Status DC Sodium Chloride (NS 250 ml Inj) 250 ml @ 250 mls/hr BOLUS ONCE IV Last administered on 04/04/16 07:00; Start 04/04/16 at 07:00; Stop 04/04/16 at 07:59 ; Status DC Senna/Docusate Sodium (Irasema-Colace) 1 tab DAILY PO Last administered on 08:14; Start 04/04/16 at 11:30 Lorazepam (Ativan Inj) 2 mg STK-MED ONCE .ROUTE Last administered on 04/05/16 14:17; Start 04/05/16 at 14:17; Stop 04/05/16 at 14:18; Status DC Fentanyl Citrate (fentaNYL INJ) 250 mcg STK-MED ONCE .ROUTE Last administered on 04/05/16 14:17; Start 04/05/16 at 14:17; Stop 04/05/16 at 14:18; Status DC Vancomycin HCl (Vancomycin Inj) 1,000 mg STK-MED ONCE .ROUTE Last administered on 04/05/16 14:17; Start 04/05/16 at 14:17; Stop 04/05/16 at 14:18; Status DC Iohexol 80 ml 80 ml STK-MED ONCE .XX Last administered on 04/05/16 16:13; Start 04/05/16 at 16:13; Stop 04/05/16 at 16:14; Status DC Sodium Chloride (NS 250 ml Inj) 250 ml @ 15 mls/hr ONCE ONCE IV Last administered on 1/23/17at 15:28; Start 04/06/16 at 10:30; Stop 04/07/16 at 03:09 ; Status DC A/P Assessment and Plan A/P - pancreatic cancer with biliary obstruction MRCP with widespread metastatic disease throughout the liver and a mass in the redd hepatis with stenosis of the right portal vein as well as compression of the biliary ducts worse in the left lobe than on the right. s/p PTC and conversion of percutaneous drains to internal metalic stents- management per IR. continue with pain control- oncology follow-up appreciated- palliative care consulted. evaluated by GI. -leukocytosis- afebrile but given the biliary duct obstruction, will continue with IV antibiotic. -anemia of chronic disease- s/p PRBC transfusion- will monitor H/H - oncology following. -hypertension; continue cardizem -hypokalemia; replaced -urinary retention; placed root cath. -DVT prophylaxis; lovenox Discharge Planning d/w the hospice and previously with the patient and his family. will discharge home with hospice. see med list. time spent 31 min. Licha Schmitz MD Apr 08, 2016 09:46
--- NOTE | 2016-04-08 11:53 | PD.CONS ---
Consult Service Palliative Care Consult Requested By Viktoriya Jackson Primary Care Physician Shubham Ruiz Reason for Consultation a. To assist with evaluation and management of symptoms including: Pain, nausea and vomiting. b. To assist medical decision maker(s) with: better understanding of current medical conditions; weighing benefits/burdens of medical treatment options; making medical treatment decisions. HPI History of Present Illness Patient is 66-year-old with past medical history of pancreatic cancer. He was found to have a pancreatic head mass and metastatic lesion to the right lobe of the liver. Patient was started on chemotherapy of Abraxane and gemcitabine, and has complications of nausea vomiting and diarrhea associated with chemotherapy. Patient was asked to go to the emergency room due to abnormal labs, particularly hyponatremia on 03/30/2016. * In the ER he was found to have elevated white blood count, hemoglobin of 9.7 , platelet of 152, and a sodium .. He also has some renal insufficiency but improved with fluid administration. Pt was also found to have elevated enzymes. * Lower extremity ultrasound was negative for DVT * Chest x-ray was reported to be unremarkable. Patient was admitted to the hospitalist service, oncology was consulted. GI was consulted for elevated enzymes == 04/01/2016. GI came and evaluated patient due to elevated bilirubin, alkaline phosphatase, and moderate transaminitis. It was thought that this may be a process secondary to pancreatic compression of the biliary duct versus infiltrative process in the liver for metastatic disease. Further imaging was ordered to see if an ERCP would help. Hematology oncology continue to follow. == 04/02/2016. Patient has mild abdominal discomfort. Abdominal ultrasound and MRCP shows multiple metastatic lesion in the liver causing blockage of proximal intrahepatic ducts no distal up obstruction noted. Based on imaging with MRCP, ERCP would not relieve proximal biliary obstruction. There is also concern of cholangitis in which patient is covered with cefepime. Interventional radiology was consulted to place a percutaneous drain for decompression == 04/03/2016 to 04/05/2016= PTC was placed, but hyperbilirubinemia and bilirubin increased from Hospital course. IR on 04/05/2016 performed: biliary drainage( conversion of percutaneous drainage to internal metallic stents, left and right , and use a cyst in right biliary access to place ascites drain. ==04/06/2016 to 04/07/2016= bilirubin remains elevated prognosis is poor. Oncology spoke with interventional radiology again, and they note that there is nothing further they can do, they believe to elevation bilirubin is not due to blockage but due to metastatic disease. Palliative care was consulted to assist with goals of care. Today on my visit patient said that his pain is relatively well controlled today. He states when he has pain is mostly abdominal, a few pressure-like. He denies pain on my visit. He stated that he does not have nausea vomiting and most of it was associated with chemotherapy. Family including patient's spouse , patient's 2 brothers were at bedside. Reviewed with patient course of cancer , elevation in bilirubin, and attempts at relieving that with medical/ procedural therapies. Informed them that there is nothing further that can be done. Patient stated "I know I'm dying, I want to go home." CODE STATUS was reviewed, with the patient and family at bedside and he desires no life support or artificial nutrition, CPR or ACLS. He is amenable to a hospice consult and would like to go home. is tearful but supportive with decision. Function/Cognitive Trajectory Patient lives with his in a camper. Patient's due to weakness, activities of daily living performed by . Review of Systems ROS Limitations: Clinical Condition Constitutional: COMPLAINS OF: Fatigue, Weight loss Respiratory: COMPLAINS OF: Shortness of breath Gastrointestinal: COMPLAINS OF: Abdominal pain, Diarrhea, Nausea, Vomiting ( associated with chemotherapy) Integumentary: DENIES: Pruritus (there is jaundice) Psychiatric: DENIES: Hallucinations Past Family Social History Coded Allergies: Codeine (Verified Allergy, Severe, HEADACHE AND FLUSHNESS, 03/30/16) Past Medical History Pancreatic cancer with metastases to the liver and currently on palliative chemotherapy Hypertension Past Surgical History Appendectomy Right lung resection PTC internalization of stent, and paracentesis drain Paracentesis in the past Reported Medications Cardizem LA (Diltiazem ER 24 HR) 300 Mg Jose 300 Mg PO DAILY Vasotec (Enalapril Maleate) 10 Mg Tab 10-25 Mg PO BID Super B with C (B Complex W/ C) 1 Cap Cap 1 Cap PO DAILY Glucosamine 1,500 Mg Tab 1,500 Mg PO DAILY Multivitamin Adults (Multiple Vitamins W/ Minerals) 1 Tab 1 Tab PO DAILY Oxycodone Hydrochloride (Oxycodone HCl) 5 Mg Cap 5 Mg PO Q4HR PRN Ondansetron HCl 4 Mg Tab 8 Mg PO TID Aspirin 81 (Aspirin) 81 Mg Tabdr 81 Mg PO DAILY Nexium (Esomeprazole DR) 40 Mg Capdr 40 Mg PO DAILY Proscar (Finasteride) 5 Mg Tab 5 Mg PO DAILY Do not crush. Zocor (Simvastatin) 40 Mg Tab 40 Mg PO DAILY Current Medications Medications (Trade) Dose Ordered Sig/Rock Route Start Time Stop Time Status Last Admin (NS 1000 ml Inj) 1,000 ml @ 125 mls/hr Q8H IV 03/30/16 23:15 04/07/16 20:08 (NS Flush) 2 ml UNSCH PRN FLUSH 03/31/16 00:30 (NS Flush) 2 ml BID FLUSH 03/31/16 09:00 04/07/16 20:07 (Zofran Inj) 4 mg Q6H PRN IVP 03/31/16 00:30 Naloxone HCl 0.4 mg 0.4 mg UNSCH PRN IV 03/31/16 00:30 (Maxipime Inj/NS Inj) 100 ml @ 200 mls/hr DAILY@00 IV 04/01/16 00:00 04/08/16 00:03 (Ecotrin Ec) 81 mg DAILY PO 04/01/16 09:00 Hold 04/02/16 10:18 (Cardizem Cd) 300 mg DAILY PO 03/31/16 16:00 04/08/16 09:37 (Proscar) 5 mg DAILY PO 03/31/16 14:15 04/08/16 09:37 (Protonix) 40 mg DAILY PO 04/01/16 09:00 04/08/16 09:37 (Zofran Odt) 8 mg TID PO 03/31/16 18:00 04/03/16 09:46 (Roxicodone) 5 mg Q4HR PRN PO 03/31/16 16:00 04/08/16 00:43 (Duragesic 50 Mcg Patch.72 Hr) 1 patch Q3D TD 04/01/16 20:00 04/07/16 20:08 Miscellaneous Information 1 Q3D TD 04/04/16 20:00 (Morphine Inj) 1 mg Q3H PRN IV PUSH 04/01/16 23:15 (KCl) 20 meq Q12HR PO 04/02/16 21:00 Hold 04/03/16 20:59 (Irasema-Colace) 1 tab DAILY PO 04/04/16 11:30 04/08/16 09:37 Family History Son has melanoma Substance Use Tobacco: 25+ years ago Alcohol: Quit 10 +years ago Prescription med abuse: No Illicits: No Psychosocial History 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 Originally from [place], and they frequented [place] during the winter season often. Permanently moved here 2 years ago. Patient is one of 8 siblings and the oldest one. Patient has a son who has from melanoma. Patient is to a very supportive who has been taking care of him. He is a [employer] Spiritual/Cultural Factors He is a [employer] Physical Exam Vital Signs Date Time Temp Pulse Resp B/P Pulse Ox O2 Delivery O2 Flow Rate FiO2 04/08/16 08:00 97.9 97 20 134/73 95 04/07/16 20:00 97.6 66 18 125/69 97 04/07/16 16:00 98.4 96 17 114/63 96 04/07/16 11:53 98.4 86 19 124/67 95 04/07/16 04/08/16 19:00 07:00 Intake Total 1658 ml 2190 ml Output Total 600 ml 1490 ml Balance 1058 ml 700 ml Intake Oral 720 ml 360 ml IV Total 938 ml 1830 ml Output Urine Total 600 ml 490 ml Drainage Total 1000 ml Bladder Scan Volume Amount 265 ml # Bowel Movements 0 0 Exam CONSTITUTIONAL/GENERAL: This is polite, pleasant gentleman, jaundice and appear fatigued. TUBES/LINES/DRAINS: Biliary Drainage (Conversion of percutaneous drains to internal metalic stents, left and righi; right biliary access for ascites drain. SKIN: Patient is jaundice HEAD: Atraumatic. Normocephalic. EYES: Pupils equal and round and reactive. Icteric sclerae noted. Fundi not examined ENT: Hearing grossly normal. Nose without bleeding or purulent drainage. Throat without visible erythema. NECK: Trachea midline. Supple, nontender. No palpable thyroid enlargement or nodularity. CARDIOVASCULAR: Regular rate and rhythm without murmurs, gallops, or rubs. No JVD. Peripheral pulses symmetric. RESPIRATORY/CHEST: Symmetric, unlabored respirations. Clear to auscultation. Breath sounds equal bilaterally. No wheezes, rales, or rhonchi. GASTROINTESTINAL: Abdomen soft, drains present, slightly distended, nontender. Bowel sounds positive GENITOURINARY: Without palpable bladder distension. Guido catheter in place. MUSCULOSKELETAL: Extremities without clubbing, cyanosis, mild+ edema lower extremities NEUROLOGICAL: Awake and alert. Motor and sensory grossly within normal limits. Follows commands. Cognitively sharp. Moves all extremities. PSYCHIATRIC: No obvious anxiety/depression. no apparent hallucinations or other psychotic thought process. Patient is stoic Diagnostic Tests Laboratory Laboratory Tests Test 04/05/16 04/06/16 04/06/16 04/06/16 18:39 06:15 12:20 13:00 Ammonia 28 MCMOL/L (11-32) White Blood Count 14.8 TH/MM3 (4.0-11.0) Red Blood Count 2.24 MIL/MM3 (4.50-5.90) Hemoglobin 6.9 GM/DL (13.0-17.0) Hematocrit 20.2 % (39.0-51.0) Mean Corpuscular Volume 90.0 FL (80.0-100.0) Mean Corpuscular Hemoglobin 30.8 PG (27.0-34.0) Mean Corpuscular Hemoglobin 34.3 % Concent (32.0-36.0) Red Cell Distribution Width 20.3 % (11.6-17.2) Platelet Count TH/MM3 (150-450) Mean Platelet Volume FL (7.0-11.0) Neutrophils (%) (Auto) 81.0 % (16.0-70.0) Lymphocytes (%) (Auto) 12.1 % (9.0-44.0) Monocytes (%) (Auto) 6.4 % (0.0-8.0) Eosinophils (%) (Auto) 0.3 % (0.0-4.0) Basophils (%) (Auto) 0.2 % (0.0-2.0) Neutrophils # (Auto) 12.0 TH/MM3 (1.8-7.7) Lymphocytes # (Auto) 1.8 TH/MM3 (1.0-4.8) Monocytes # (Auto) 0.9 TH/MM3 (0-0.9) Eosinophils # (Auto) 0.0 TH/MM3 (0-0.4) Basophils # (Auto) 0.0 TH/MM3 (0-0.2) CBC Comment AUTO DIFF Differential Total Cells 100 Counted Neutrophils % (Manual) 80 % (16-70) Band Neutrophils % 3 % (0-6) Lymphocytes % 11 % (9-44) Monocytes % 5 % (0-8) Basophils % 1 % (0-2) Neutrophils # (Manual) 12.3 TH/MM3 (1.8-7.7) Differential Comment FINAL DIFF MANUAL Platelet Estimate NORMAL (NORMAL) Platelet Morphology Comment CLUMPED (NORMAL) Target Cells 1+ (NORMAL) Keratocytes OCC (NORMAL) Total Bilirubin 11.2 MG/DL (0.2-1.0) Direct Bilirubin 9.4 MG/DL (0.0-0.2) Indirect Bilirubin 1.8 MG/DL (0.0-0.8) Aspartate Amino Transf 166 U/L (15-37) (AST/SGOT) Alanine Aminotransferase 227 U/L (12-78) (ALT/SGPT) Alkaline Phosphatase 1302 U/L (45-117) Total Protein 4.5 GM/DL (6.4-8.2) Albumin 1.1 GM/DL (3.4-5.0) Blood Type AB POSITIVE AB POSITIVE Antibody Screen NEGATIVE Crossmatch Leukocyte-Reduced Red Blood Cells Blood Bank Comment Test 04/07/16 04/07/16 04/07/16 04/08/16 05:10 09:48 11:14 05:30 Total Bilirubin 11.2 MG/DL 7.8 MG/DL (0.2-1.0) (0.2-1.0) Direct Bilirubin 9.2 MG/DL 6.3 MG/DL (0.0-0.2) (0.0-0.2) Indirect Bilirubin 2.0 MG/DL 1.5 MG/DL (0.0-0.8) (0.0-0.8) Aspartate Amino Transf 125 U/L (15-37) 97 U/L (15-37) (AST/SGOT) Alanine Aminotransferase 189 U/L (12-78) 140 U/L (12-78) (ALT/SGPT) Alkaline Phosphatase 1147 U/L 1012 U/L (45-117) (45-117) Total Protein 4.6 GM/DL 5.2 GM/DL 4.5 GM/DL (6.4-8.2) (6.4-8.2) (6.4-8.2) Albumin 1.2 GM/DL 1.0 GM/DL (3.4-5.0) (3.4-5.0) White Blood Count 18.0 TH/MM3 20.9 TH/MM3 (4.0-11.0) (4.0-11.0) Red Blood Count 3.98 MIL/MM3 3.50 MIL/MM3 (4.50-5.90) (4.50-5.90) Hemoglobin 11.7 GM/DL 10.4 GM/DL (13.0-17.0) (13.0-17.0) Hematocrit 35.0 % 30.5 % (39.0-51.0) (39.0-51.0) Mean Corpuscular Volume 87.9 FL 87.1 FL (80.0-100.0) (80.0-100.0) Mean Corpuscular Hemoglobin 29.5 PG 29.7 PG (27.0-34.0) (27.0-34.0) Mean Corpuscular Hemoglobin 33.6 % 34.2 % Concent (32.0-36.0) (32.0-36.0) Red Cell Distribution Width 19.4 % 18.7 % (11.6-17.2) (11.6-17.2) Platelet Count 104 TH/MM3 95 TH/MM3 (150-450) (150-450) Mean Platelet Volume 9.5 FL 9.7 FL (7.0-11.0) (7.0-11.0) Neutrophils (%) (Auto) 79.2 % 83.2 % (16.0-70.0) (16.0-70.0) Lymphocytes (%) (Auto) 14.3 % 11.5 % (9.0-44.0) (9.0-44.0) Monocytes (%) (Auto) 5.3 % (0.0-8.0) 5.0 % (0.0-8.0) Eosinophils (%) (Auto) 0.6 % (0.0-4.0) 0.3 % (0.0-4.0) Basophils (%) (Auto) 0.6 % (0.0-2.0) 0.0 % (0.0-2.0) Neutrophils # (Auto) 14.2 TH/MM3 17.4 TH/MM3 (1.8-7.7) (1.8-7.7) Lymphocytes # (Auto) 2.6 TH/MM3 2.4 TH/MM3 (1.0-4.8) (1.0-4.8) Monocytes # (Auto) 0.9 TH/MM3 1.0 TH/MM3 (0-0.9) (0-0.9) Eosinophils # (Auto) 0.1 TH/MM3 0.1 TH/MM3 (0-0.4) (0-0.4) Basophils # (Auto) 0.1 TH/MM3 0.0 TH/MM3 (0-0.2) (0-0.2) CBC Comment DIFF FINAL AUTO DIFF Differential Comment AUTO DIFF CONFIRMED Sodium Level 129 MEQ/L (136-145) Potassium Level 4.2 MEQ/L (3.5-5.1) Chloride Level 100 MEQ/L (98-107) Carbon Dioxide Level 18.0 MEQ/L (21.0-32.0) Anion Gap 11 MEQ/L (5-15) Blood Urea Nitrogen 30 MG/DL (7-18) Creatinine 1.18 MG/DL (0.60-1.30) Estimat Glomerular Filtration 61 ML/MIN (>89) Rate Random Glucose 89 MG/DL (74-106) Calcium Level 7.3 MG/DL (8.5-10.1) Protein Corrected Calcium 8.3 MG/DL (8.5-10.1) Ammonia 12 MCMOL/L (11-32) Result Diagram: 04/08/16 0530 04/07/16 0948 Imaging Last Impressions Abdomen Ultrasound 04/05/16 0800 Signed Impressions: Service Date/Time: Tuesday, April 05, 2016 10:47 - CONCLUSION: Trace perihepatic free fluid and a small volume of free fluid in the right lower quadrant. Dusty Lake MD Bile Duct Dilation 04/03/16 0000 Signed Impressions: Service Date/Time: Sunday, April 03, 2016 13:21 - CONCLUSION: 1. Extensive disease throughout the liver with central occlusion of the left hepatic ducts. 2. As the right internal/external drain was placed previously, I was unable to pass a second catheter through the ampulla and a [place] loop catheter was placed into the distal common bile duct with extra side holes cut more centrally to facilitate drainage of the left ducts. Chan Jasmine MD Cholangiopancreatography MRI 04/02/16 0000 Signed Impressions: Service Date/Time: March 13:18 - CONCLUSION: 1. Widespread metastatic disease throughout the liver most prominent in segment 6 where there is a 7.4 cm lesion. There is a mass in the redd hepatis with stenosis of the right portal vein as well as compression of the biliary ducts worse in the left lobe than on the right. Mario Merida MD Liver Ultrasound 04/01/16 0000 Signed Impressions: Service Date/Time: Friday, April 01, 2016 15:57 - CONCLUSION: 1.Abnormal exam with multiple heterogeneous mixed echogenicity lesions identified within the liver consistent with multiple metastatic lesions. The largest of these are seen within the right lobe. 2.Abnormal wall thickening of the gallbladder which may represent metastatic involvement versus low oncotic pressure. No evidence of ascites on this exam. The pancreas is not visualized well and the previously indicated masses are seen. Milli Burger MD Chest X-Ray 03/31/16 0023 Signed Impressions: Service Date/Time: Thursday, March 31, 2016 00:55 - CONCLUSION: Mild diaphragmatic asymmetry of undetermined chronicity. Dusty Vanessa MD Lower Extremity Ultrasound 03/30/162107 Signed Impressions: Service Date/Time: Wednesday, March 30, 2016 21:38 - CONCLUSION: No DVT of either lower extremity. Dusty Stuart MD Patient/Family Conference Present at Family Conference: Patient's spouse, and patient's brothers, were at bedside with patient. Family Conference Time (mins): 35 Family Conference Location: Bedside Issues Discussed: * Palliative care role, purpose, approach * Additional medical, psychosocial, and spiritual history * Patients general health, functional status, and cognitive changes in the months leading up to the current hospitalization * Patient/family understanding of the current medical problems * Patient/family understanding of prognosis * Patients goals of care as best understood from advance directives and/or conversations and/or values * Current medical treatment options and benefits/burdens of those options * Likely scenarios comparing ongoing aggressive care with a transition to comfort measures only * Questions answered to the best of my ability * Palliative care contact information provided Assessment and Plan Disease Oriented Problem List: (1) Leukocytosis (2) LFT elevation (3) Pancreatic cancer metastasized to liver (4) Biliary obstruction (5) Dehydration with hyponatremia (6) Acute kidney injury (7) Ascites Symptom Scale: (1) Pain 0-10 Scale: 0 Comment: Denies pain today (2) Nausea 0-10 Scale: 0 Comment: Denies nausea (3) Weakness 0-10 Scale: 0 Comment: Is chronically fatigued, trivial to cancer burden, anemia, transaminitis. Pertinent Non-Medical Issues Psychosocial: Spiritual: Legal: Ethical issues impacting care: Important Contacts Keyla Tineo (spouse) [phone] Prognosis Patient has metastatic pancreatic cancer with metastasis to the liver, despite being on palliative chemotherapy cancerous progress. Patient's medical condition is complicated by transaminitis, fatigue, nausea and vomiting while undergoing chemotherapy. Despite medical/procedural intervention patient's bilirubin continued to rise, and it was felt to be due to cancer burden and not to any type of blockage. Patient was not candidate for ERCP. Oncology noted that prognosis is poor. Patient would be appropriate for hospice if goals are consistent with hospice philosophy. Code Status: No Code Plan == Code: No code/DNR DNI ==Pain- patient's pain usually is abdominal is due to cancer burden, however pain is relatively well controlled today and he declined any adjustment in medications. No new med rec == Nausea and vomiting-inform patient and family that may be another complication the patient will face, patient stated that mostly is due to chemotherapy. Today patient does not complain of nausea and vomiting. No further medical record today == Goals of care-course of patient's illness, reviewed therapeutic interventions , and that it has been ineffective. Patient realized "I know I am dying, I want to go Home." Amenable to hospice consult. Patient was evaluated by hospice in the past, but at that time patient was not ready. Patient now is ready to go home with hospice with comfort measures, and peaceful . == Hospice consult has been placed. == Palliative care will continue to follow as patient's clinical condition evolves. Thank you for the opportunity to participate in the care of Mr. Tineo. Jamshid Marroquin MD Apr 08, 2016 11:53
[2016-04-08 11:59] VITALS: BP 130/70; PULSE 77; RESP 19; TEMP 97.6; O2SAT 97
--- NOTE | 2016-04-08 12:12 | HHI.DCPOC ---
Discharge Care Plan Your Health Problems Are: Chronic Pain Goals to Promote Your Health * To prevent worsening of your condition and complications * To maintain your health at the optimal level Directions to Meet Your Goals Take your medications as prescribed Follow your dietary instruction Follow activity as directed Keep your appointments as scheduled Take your immunizations and boosters as scheduled If your symptoms worsen call your PCP, if no PCP go to Urgent Care Center or Emergency Room Smoking is Dangerous to Your Health. Avoid second hand smoke Call the 24-hour hour crisis hotline for domestic abuse at Licha Schmitz MD Apr 08, 2016 12:12
--- NOTE | 2016-04-08 12:13 | HHI.DS ---
Discharge Summary Admission Date Mar 31, 2016 at 00:25 Discharge Date: Apr 08, 2016 Admitting Diagnosis severe hyponatremia. Leukocytosis. (1) Hypotension ICD Code: I95.9 Diagnosis: Principal (2) Acute kidney injury ICD Code: N17.9 Diagnosis: Principal (3) Dehydration with hyponatremia ICD Code: E87.1 Diagnosis: Principal (4) Leukocytosis ICD Code: D72.829 Diagnosis: Principal (5) LFT elevation ICD Code: R94.5 Diagnosis: Principal Procedures cholecystostomy tube placement/ percutaneous transhepatic drainage of the right ducts. Conversion of percutaneous drains to internal metalic stents, left and right. Brief History - From Admission Patient is a 66-year-old gentleman with a history of pancreatic cancer in follow -up with Dr. Gonzalez who did come to the emergency room after his oncologist office called him with abnormal labs. He did arrive and had a BMP which showed some hyponatremia, acute kidney injury and leukocytosis. Patient says he has not been ill, no fevers or chills. He does take palliative chemotherapy for 3 weeks and is off a week. Last treatment was last Wednesday and labs were obtained at that time. Patient did have a sodium of 123 and after so normal saline and sodium is now 126. His acute kidney injury appears to be resolved also. Patient does have persistent leukocytosis. He denies any seizures or headache or shortness of breath. These reasons the patient was admitted to the hospital for further treatment of dehydration with hyponatremia CBC/BMP: 04/08/16 0530 04/07/16 0948 Significant Findings Laboratory Tests Test 04/06/16 04/07/16 04/07/16 04/08/16 06:15 05:10 09:48 05:30 White Blood Count 14.8 TH/MM3 18.0 TH/MM3 20.9 TH/MM3 (4.0-11.0) (4.0-11.0) (4.0-11.0) Red Blood Count 2.24 MIL/MM3 3.98 MIL/MM3 3.50 MIL/MM3 (4.50-5.90) (4.50-5.90) (4.50-5.90) Hemoglobin 6.9 GM/DL 11.7 GM/DL 10.4 GM/DL (13.0-17.0) (13.0-17.0) (13.0-17.0) Hematocrit 20.2 % 35.0 % 30.5 % (39.0-51.0) (39.0-51.0) (39.0-51.0) Red Cell Distribution Width 20.3 % 19.4 % 18.7 % (11.6-17.2) (11.6-17.2) (11.6-17.2) Neutrophils (%) (Auto) 81.0 % 79.2 % 83.2 % (16.0-70.0) (16.0-70.0) (16.0-70.0) Neutrophils # (Auto) 12.0 TH/MM3 14.2 TH/MM3 17.4 TH/MM3 (1.8-7.7) (1.8-7.7) (1.8-7.7) Neutrophils % (Manual) 80 % (16-70) Neutrophils # (Manual) 12.3 TH/MM3 (1.8-7.7) Platelet Morphology Comment CLUMPED (NORMAL) Target Cells 1+ (NORMAL) Total Bilirubin 11.2 MG/DL 11.2 MG/DL 7.8 MG/DL (0.2-1.0) (0.2-1.0) (0.2-1.0) Direct Bilirubin 9.4 MG/DL 9.2 MG/DL 6.3 MG/DL (0.0-0.2) (0.0-0.2) (0.0-0.2) Indirect Bilirubin 1.8 MG/DL 2.0 MG/DL 1.5 MG/DL (0.0-0.8) (0.0-0.8) (0.0-0.8) Aspartate Amino Transf 166 U/L (15-37) 125 U/L (15-37) 97 U/L (15-37) (AST/SGOT) Alanine Aminotransferase 227 U/L (-) 189 U/L (-78) 140 U/L (-78) (ALT/SGPT) Alkaline Phosphatase 1302 U/L 1147 U/L 1012 U/L (45-117) (45-117) (45-117) Total Protein 4.5 GM/DL 4.6 GM/DL 5.2 GM/DL 4.5 GM/DL (6.4-8.2) (6.4-8.2) (6.4-8.2) (6.4-8.2) Albumin 1.1 GM/DL 1.2 GM/DL 1.0 GM/DL (3.4-5.0) (3.4-5.0) (3.4-5.0) Platelet Count 104 TH/MM3 95 TH/MM3 (150-450) (150-450) Sodium Level 129 MEQ/L (136-145) Carbon Dioxide Level 18.0 MEQ/L (21.0-32.0) Blood Urea Nitrogen 30 MG/DL (7-18) Estimat Glomerular Filtration 61 ML/MIN (>89) Rate Calcium Level 7.3 MG/DL (8.5-10.1) Protein Corrected Calcium 8.3 MG/DL (8.5-10.1) Monocytes # (Auto) 1.0 TH/MM3 (0-0.9) Imaging Last Impressions Abdomen Ultrasound 04/05/16 0800 Signed Impressions: Service Date/Time: Tuesday, April 05, 2016 10:47 - CONCLUSION: Trace perihepatic free fluid and a small volume of free fluid in the right lower quadrant. Dusty Lake MD Bile Duct Dilation 04/03/16 0000 Signed Impressions: Service Date/Time: Sunday, April 03, 2016 13:21 - CONCLUSION: 1. Extensive disease throughout the liver with central occlusion of the left hepatic ducts. 2. As the right internal/external drain was placed previously, I was unable to pass a second catheter through the ampulla and a [place] loop catheter was placed into the distal common bile duct with extra side holes cut more centrally to facilitate drainage of the left ducts. Chan Jasmine MD Cholangiopancreatography MRI 04/02/16 0000 Signed Impressions: Service Date/Time: March 13:18 - CONCLUSION: 1. Widespread metastatic disease throughout the liver most prominent in segment 6 where there is a 7.4 cm lesion. There is a mass in the redd hepatis with stenosis of the right portal vein as well as compression of the biliary ducts worse in the left lobe than on the right. Mario Merida MD Liver Ultrasound 04/01/16 0000 Signed Impressions: Service Date/Time: Friday, April 01, 2016 15:57 - CONCLUSION: 1.Abnormal exam with multiple heterogeneous mixed echogenicity lesions identified within the liver consistent with multiple metastatic lesions. The largest of these are seen within the right lobe. 2.Abnormal wall thickening of the gallbladder which may represent metastatic involvement versus low oncotic pressure. No evidence of ascites on this exam. The pancreas is not visualized well and the previously indicated masses are seen. Milli Burger MD Chest X-Ray 03/31/16 0023 Signed Impressions: Service Date/Time: Thursday, March 31, 2016 00:55 - CONCLUSION: Mild diaphragmatic asymmetry of undetermined chronicity. Dusty Vanessa MD Lower Extremity Ultrasound 03/30/168 Signed Impressions: Service Date/Time: Wednesday, March 30, 2016 21:38 - CONCLUSION: No DVT of either lower extremity. Dusty Stuart MD PE at Discharge GENERAL: jaundiced, ill looking- in no apparent distress. CARDIOVASCULAR: Regular rate and regular rhythm without murmurs, gallops, or rubs. RESPIRATORY: Clear to auscultation. Breath sounds equal bilaterally. No wheezes , rales, or rhonchi. GASTROINTESTINAL: Abdomen soft, non-tender, nondistended. Normal, active bowel sounds- drains in place. MUSCULOSKELETAL: Extremities without clubbing, cyanosis, or edema. NEURO: Alert & Oriented x4 to person, place, time, situation. Moves all ext x4 Hospital Course - pancreatic cancer with biliary obstruction MRCP with widespread metastatic disease throughout the liver and a mass in the redd hepatis with stenosis of the right portal vein as well as compression of the biliary ducts worse in the left lobe than on the right. s/p PTC and conversion of percutaneous drains to internal metalic stents- management per IR. continue with pain control- oncology follow-up appreciated- palliative care consulted. evaluated by GI. -leukocytosis- afebrile but given the biliary duct obstruction, will continue with IV antibiotic. -anemia of chronic disease- s/p PRBC transfusion- will monitor H/H - oncology following. -hypertension; continue cardizem -hypokalemia; replaced -urinary retention; placed root cath. -DVT prophylaxis; lovenox Pt Condition on Discharge: Deteriorating Discharge Disposition: Hospice/ Home Discharge Time: > 30 minutes Discharge Instructions DIET: Follow Instructions for: Heart Healthy Diet Activities you can perform: Regular-No Restrictions Follow up Referrals: PCP Follow-up Continued Medications: Aspirin DR (Aspirin 81) 81 Mg Tabdr 81 MG PO DAILY Ref 0 TAB B Complex W/ C (Super B with C) 1 Cap Cap 1 CAP PO DAILY Diltiazem ER 24 HR (Cardizem LA) 300 Mg Jose 300 MG PO DAILY #30 Ref [address] (Nexium) 40 Mg Capdr 40 MG PO DAILY Ref 0 CAP Finasteride (Proscar) 5 Mg Tab 5 MG PO DAILY Do not crush. Manage Prostate Problems #30 Ref 0 TAB Glucosamine (Glucosamine) 1,500 Mg Tab 1500 MG PO DAILY Herbal Supplements Ref 0 TAB Multiple Vitamins W/ Minerals (Multivitamin Adults) 1 Tab 1 TAB PO DAILY Nutritional Supplement Ref 0 TAB Ondansetron HCl (Ondansetron HCl) 4 Mg Tab 8 MG PO TID Oxycodone HCl (Oxycodone Hydrochloride) 5 Mg Cap 5 MG PO Q4HR PRN Pain Management Simvastatin (Zocor) 40 Mg Tab 40 MG PO DAILY Cholesterol Management #30 Ref 0 TAB Discontinued Medications: Enalapril (Vasotec) 10 Mg Tab 10-25 MG PO BID #30 Ref 0 TAB Licha Schmitz MD Apr 08, 2016 12:13
--- NOTE | 2016-04-20 08:10 | RADRPT ---
EXAM DATE/TIME: 04/03/2016 13:17 [facility] COMPARISON: No previous studies available for comparison. TECHNIQUE: 1. Ultrasound guidance for abdominal paracentesis. 2. Paracentesis. The risks, benefits, and alternatives to ultrasound guided paracentesis were explained to the patient in detail including the risk of bleeding and infection. Written and verbal informed consent was obt ained. Patient is being considered for hepatic drainage. On the prior MRCP, the most prominent ducts within the left hepatic lobe. Ultrasound images over the left lobe did show some fluid between the anterior abdominal wall and the hepatic parenchyma. Therefore, the area was anesthetized and a dermatotomy mad e with an 11 blade scalpel. A 6 Faroese safety centesis needle was advanced into the fluid and approxi mately 300 cc of straw-colored ascites was removed prior to left hepatic lobe access. Again, this was done to facilitate percutaneous transhepatic drainage. CONCLUSION: Uncomplicated ultrasound guided paracentesis. Chan Jasmine MD on April 20, 2016 at 8:05 Board Certified Radiologist. This report was verified electronically.
--- NOTE | 2016-04-21 16:20 | RADRPT ---
EXAM DATE/TIME: 04/05/2016 14:21 [facility] COMPARISON: No previous studies available for comparison. INDICATIONS : Patient is in need of placement of a peritoneal drain catheter due to ascites. 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 SURGICAL HISTORY : History of appendectomy, biliary drain placement, hernia repair, rotator cuff repair, right lung rese ction, thum surgery, hammer toe surgery. ENCOUNTER: Subsequent ACUITY: 4-6 days PAIN SCORE: 10/10 LOCATION: Left upper quadrant FLUORO TIME: 13.2 minutes SEDATION TIME: 75minutes CONTRAST: 80 cc Omnipaque (iohexol) 350 MEDICATION(S): 1.) 1 g Vancomycin IV 2.) 2 mg lorazepam (Ativan) IV 3.) 250 mcg fentanyl (Sublimaze) IV DEVICE(S): 1.) 8 Yi locking [place] PROCEDURE : 1. peritoneal drainage catheter placement 2. Conscious sedation with continuous EKG and Oximetry monitoring. The risks, benefits and alternatives to the procedure were explained and verbal and written consent w as obtained. The site was prepped in sterile fashion. Full sterile technique was used, including ca p, mask, sterile gloves and gown and a large sterile sheet. Hand hygiene and 2% chlorhexidine prep w as utilized per protocol for cutaneous antisepsis with appropriate dry time for site. The skin and s ubcutaneous tissues were infiltrated with local anesthetic solution. Please note, the procedure was done in conjunction with the patient's internalization of biliary sten ts. Because of the extensive ascites, there was still fluid draining from the catheter access in the right flank area. Therefore, a catheter and wire were manipulated through the dermatotomy and into th e ascites adjacent to liver. Position was confirmed the positive contrast. Conscious sedation was performed with the prescribed dosages and duration as above. EKG and oximetry remained stable throughout the procedure. CONCLUSION: Placement of a peritoneal drainage catheter as detailed above. Chan Jasmine MD on April 21, 2016 at 16:16 Board Certified Radiologist. This report was verified electronically.
--- NOTE | 2016-04-21 16:22 | RADRPT ---
EXAM DATE/TIME: 04/05/2016 14:21 COMPARISON: No previous studies available for comparison. INDICATIONS : The patient is an unfortunate 66-year-old with pancreatic cancer metastatic to the liver. The patient recently had percutaneous transhepatic drainage catheters placed in both the lef t and right hepatic lobes. He continues to leak ascites from the catheter sites. The clinical servic e and the family has asked that we internalize these stents. 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 SURGICAL HISTORY : History of appendectomy, biliary drain placement, hernia repair, rotator cuff repair, right lung resection, thumb surgery, hammer toe surgery. ENCOUNTER: Subsequent ACUITY: 4 - 6 days PAIN SCORE: 10/10 LOCATION: Left upper quadrant FLUORO TIME: 13.2 minutes SEDATION TIME: 75 minutes CONTRAST: 80 cc Omnipaque (iohexol) 350 MEDICATION(S): 1.) 1 g Vancomycin IV 2.) 2 mg lorazepam (Ativan) IV 3.) 250 mcg fentanyl (Sublimaze) IV Vancomycin within 2 hours of procedure, Ancef (or alternative) within 1 hour of procedure. DEVICE(S): 1.) 6mm x 80mm x 130cm stent (self expanding) Medtronic Complete SE FINDINGS: With the patient supine on the angiography table, the right internal and external drain age catheter was injected showing appropriate position within the biliary tree and second portion of the duodenum. Wire was advanced through the catheter. The catheter was removed to facilitate placem ent of a 6-Pakistani side port sheath. Through the sheath, a 6 mm x 8 cm self-expanding Medtronic stent advanced over the wire and deployed across the occluded portion of the intrahepatic biliary ducts in to the CBD. Positive contrast confirmed appropriate position of the stent with flow down into the CB D and into the small bowel. CONCLUSION: 1. Successful conversion of the right PTHD drain to an internal metallic stent as detailed above. 2. Please note this was done in conjunction with a left stent internalization as well. Chan Jasmine MD on April 21, 2016 at 16:09 Board Certified Radiologist. This report was verified electronically.
--- NOTE | 2016-04-21 16:41 | RADRPT ---
EXAM DATE/TIME: 04/05/2016 14:21 COMPARISON: No previous studies available for comparison. INDICATIONS : The patient is an unfortunate 67-year-old with pancreatic cancer metastatic to the liver and bilateral biliary ductal obstruction due to the same. The patient had internal/external c atheters placed in to both the left and right hepatic ducts a few days earlier. The patient continue s to leak ascites around both drains due to the patient's disease process. The family and clinical se rvices asked that we internalize the catheters for metallic stents. 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 SURGICAL HISTORY : History of appendectomy, biliary drain placement, hernia repair, rotator cuff repair, right lung resection, thum surgery, hammer toe surgery. ENCOUNTER: Subsequent ACUITY: 4 - 6 days PAIN SCORE: 10/10 LOCATION: Left upper quadrant FLUORO TIME: 13.2 minutes SEDATION TIME: 75 minutes CONTRAST: 80 cc Omnipaque (iohexol) 350 MEDICATION(S): 1.) 1 g Vancomycin IV 2.) 2 mg lorazepam (Ativan) IV 3.) 250 mcg fentanyl (Sublimaze) IV Vancomycin within 2 hours of procedure, Ancef (or alternative) within 1 hour of procedure. DEVICE(S): 1.) 6mm x 80mm x 120cm stent (self expanding) Ev3 EverFlex FINDINGS: The position of the left drainage catheter would confirm a positive contrast. The cath eter was accessed with an 0.035 wire and the catheter removed to facilitate placement of a 6-Surinamese s radha port sheath. Through the side port sheath, a 6 mm x 8 cm self-expanding EverFlex stent was advan haider across the wire and into the biliary tree. The ends of the stent bridge the portions of the intr a and extrahepatic biliary tree which were normal in caliber and provided a conduit through the occlu ded segment at the confluence of the left and right hepatic ducts. This area was balloon dilated to 4 mm to facilitate luminal drainage. Stent patency was confirmed with positive contrast. CONCLUSION: 1. Successful internalization of the left-sided biliary drainage catheter for a self-expanding metall ic stent as detailed above. 2. Please note that this was done in conjunction with a right internal stent placement as well. Chan Jasmine MD on April 21, 2016 at 16:13 Board Certified Radiologist. This report was verified electronically.
== END 2016-04-08 14:48 | disposition hospice, inpatient (51) | DRG 640 ==
LOC: PHED 20:03 → PHEDA 03-31 00:25 → PHEDH 03-31 04:25 → PH3B 03-31 07:58 → N07A 04-03 00:45
PROVIDERS: ADMIT Internal Medicine; ATTEND Internal Medicine
PROC: 30253N1 (ICD-10-PCS; principal; 2016-03-31)
PROC: 0T9B30Z Drainage of Bladder with Drainage Device, Percutaneous Approach (ICD-10-PCS; 2016-04-04)
PROC: 0W9G3ZZ Drainage of Peritoneal Cavity, Percutaneous Approach (ICD-10-PCS; 2016-04-04)
DX: E87.1 Hypo-osmolality and hyponatremia (principal); K83.1 Obstruction of bile duct; E86.0 Dehydration; N17.9 Acute kidney failure, unspecified; K83.0 Cholangitis; C78.7 Secondary malignant neoplasm of liver and intrahepatic bile duct; R18.8 Other ascites; C25.9 Malignant neoplasm of pancreas, unspecified; I10 Essential (primary) hypertension; E78.00 Pure hypercholesterolemia, unspecified; E87.6 Hypokalemia; D63.8 Anemia in other chronic diseases classified elsewhere; G89.29 Other chronic pain; K21.9 Gastro-esophageal reflux disease without esophagitis; R33.9 Retention of urine, unspecified; T45.1X5A Adverse effect of antineoplastic and immunosuppressive drugs, initial encounter; Z51.5 Encounter for palliative care
CPT/HCPCS: 36430; 47534; 47538; 47542; 49083; 71010; 74183; 74363; 75989; 76377; 76705; 76942; 80048; 80053; 80076; 81001; 82140; 82247; 82248; 82607; 82747; 83540; 83550; 83615; 83735; 84100; 84155; 84466; 85007; 85025; 85027; 85610; 85730; 86850; 86900; 86901; 86920; 87040; 93970; 96360; 99152; 99153; A9579; C1725; C1729; C1769; C1876; C1887; J0692; J1650; J2060; J2250; J3010; J3370; J7030; J7050; P9016; Q9967